=== PATIENT | male | born 1975 | race Hispanic/Latino ===

== ENCOUNTER 2017-10-15 19:31 | Inpatient (IN) | payer MEDICAID ==
--- NOTE | 2017-10-15 20:12 | ED PDOC ---
Arrival/HPI - General Chief Complaint: Chest Pain Time Seen by Provider: 10/15/17 19:39 Historian: Patient - History of Present Illness Narrative History of Present Illness (Text): you were treated in the ED today for chest pain and back pain generalized and admits to using heroin/cocaine a few hours prior to ED visit but otherwise without any nausea/vomiting/headache/dizziness/difficulty breathing/abdomen pain /numbness/tingling/loss of limb or bowel or bladder function/pain with urination /trauma/fall/travel/prior blood clots/prior cancer history/thoughts to harm yourself or others or hallucinations. 10/15/17 20:09 10/15/17 22:26 Time/Duration: Other (1 day) Symptom Onset: Gradual Symptom Course: Unchanged, Intermittent Quality: Aching Severity Level: 4 Activities at Onset: Rest Context: Sitting Past Medical History - Provider Review Nursing Documentation Reviewed: Yes - Travel History Have you recently traveled outside [place] w/in the past 3 mons?: No - Cardiac Hx Cardiac Disorders: Yes Other/Comment: endocardities - Pulmonary Hx Respiratory Disorders: No - Neurological Hx Neurological Disorder: No - HEENT Hx HEENT Disorder: No - Renal Hx Renal Disorder: No - Endocrine/Metabolic Hx Endocrine Disorders: No - Hematological/Oncological Hx Blood Disorders: No - Integumentary Hx Dermatological Disorder: No - Musculoskeletal/Rheumatological Hx Musculoskeletal Disorders: No - Gastrointestinal Hx Gastrointestinal Disorders: No - Genitourinary/Gynecological Hx Genitourinary Disorders: No - Psychiatric Hx Psychophysiologic Disorder: No Hx Substance Use: Yes (heroin and cocain) - Anesthesia Hx Anesthesia: Yes Family/Social History - Physician Review Nursing Documentation Reviewed: Yes Family/Social History: No Known Family HX Smoking Status: Never Smoked Hx Alcohol Use: No Hx Substance Use: Yes (heroin and cocain) Allergies/Home Meds Allergies/Adverse Reactions: Allergies No Known Allergies Allergy (Verified 10/15/17 19:36) Home Medications: Home Meds Medication Instructions Recorded Confirmed No Known Home Med 10/15/17 10/15/17 Review of Systems - Review of Systems Constitutional: Normal Eyes: Normal ENT: Normal Respiratory: Normal Cardiovascular: Chest Pain Gastrointestinal: Normal Genitourinary Male: Normal Musculoskeletal: Back Pain Skin: Normal Neurological: Normal Endocrine: Normal Hemo/Lymphatic: Normal Psychiatric: Normal Physical Exam Vital Signs Reviewed: Yes Vital Signs Temp Pulse Resp BP Pulse Ox 10/15/17 21:06 113/75 10/15/17 21:05 133/72 10/15/17 19:38 98.0 F 87 22 111/72 100 Temperature: Afebrile Blood Pressure: Normal Pulse: Regular Respiratory Rate: Normal Appearance: Positive for: Well-Appearing, Non-Toxic, Comfortable Pain Distress: None Mental Status: Positive for: Alert and Oriented X 3 - Systems Exam Head: Present: Atraumatic, Normocephalic Pupils: Present: PERRL Extroacular Muscles: Present: EOMI Conjunctiva: Present: Normal Ears: Present: Normal Mouth: Present: Moist Mucous Membranes Pharnyx: Present: Normal Nose (External): Present: Atraumatic Nose (Internal): Present: Normal Inspection Neck: Present: Normal Range of Motion Respiratory/Chest: Present: Clear to Auscultation, Good Air Exchange Cardiovascular: Present: Regular Rate and Rhythm Abdomen: No: Tenderness, Distention, Normal Bowel Sounds, Peritoneal Signs, Rebound, Guarding, McBurney's Point Tender, Rovsing's Sign Present, Hernias, Feeding Tubes, Ostomy Tubes, Mass/Organomegaly, Scars, Other Back: Present: Normal Inspection, Other (no c-t spinal or paraspinal tenderness and mild l paraspinal discomfort wo specific spinal tenderness. no redness.) Upper Extremity: Present: Normal Inspection Lower Extremity: Present: Normal Inspection Neurological: Present: GCS=15, CN II-XII Intact, Speech Normal, Motor Func Grossly Intact Skin: Present: Warm, Normal Color Psychiatric: Present: Alert, Oriented x 3, Normal Insight, Normal Concentration Medical Decision Making ED Course and Treatment: you were treated in the ED today for chest pain and back pain generalized and admits to using heroin/cocaine a few hours prior to ED visit but otherwise without any nausea/vomiting/headache/dizziness/difficulty breathing/abdomen pain /numbness/tingling/loss of limb or bowel or bladder function/pain with urination /trauma/fall/travel/prior blood clots/prior cancer history/thoughts to harm yourself or others or hallucinations. You were otherwise breathing easily, pink moist lips, talking easily, good strength/sensation, alert/oriented, walking easily, clear lungs, no abdomen tenderness, no fever temp 98, stable heart rate 87, stable breathing rate 22, excellent oxygen level 100% room air, stable blood pressure 111/72, you have blood tests moderate infection count 16.8 , stable blood level hemoglobin 13.7/platelets 371, stable chemistry, Liver bilirubin 1.4 without yellowing of eyes/skin, heart blood test negative less 0.01, urine test no acute sign of infection, urine drug test pending, radiology CTa chest and lumbar pending, ECG normal sinus rhythm, aspirin, percocet, intravenous fluids, observation done in the ED with improvement, counselled to stop using drugs. 10/15/17 20:12 10/15/17 21:23 10/15/17 21:24 10/15/17 22:28 10/15/17 23:[address] Nielsen to followup, urine tox, CT chest and CT lumbar imaging and disposition. - Lab Interpretations Lab Results: 10/15/17 20:33 10/15/17 20:33 Lab Results 10/15/17 22:22: Urine Color Dark yellow, Urine Appearance Clear, Urine pH 5.5, Ur Specific [place] >= 1.030, Urine Protein 30 H, Urine Glucose (UA) Negative, Urine Ketones Negative, Urine Blood Negative, Urine Nitrate Negative, Urine Bilirubin Negative, Urine Urobilinogen 0.2, Ur Leukocyte Esterase Negative, Urine RBC Negative, Urine WBC 0 - 2, Ur Epithelial Cells 0 - 2, Amorphous Sediment Few, Urine Bacteria Many, Urine Other Fiber 10/15/17 20:33: PT 13.4 H, INR 1.17 H, APTT 28.8 10/15/17 20:33: Sodium 138, Potassium 4.0, Chloride 102, Carbon Dioxide 25, Anion Gap 15, BUN 15, Creatinine 0.8, Est GFR ( Amer) > 60, Est GFR (Non- Af Amer) > 60, Random Glucose 95, Calcium 10.2, Magnesium 1.9, Total Bilirubin 1.4 H, AST 35, ALT 56, Alkaline Phosphatase 70, Lactate Dehydrogenase 408, Total Creatine Kinase 49, Troponin I < 0.01, Total Protein 9.0 H, Albumin 4.3, Globulin 4.7, Albumin/Globulin Ratio 0.9 L, Lipase 32 10/15/17 20:33: WBC 16.8 H, RBC 4.79, Hgb 13.7 L, Hct 41.6 L, MCV 86.8, MCH 28.6 , MCHC 32.9, RDW 15.3 H, Plt Count 371, MPV 8.9, Gran % 79.1 H, Lymph % (Auto) 13.7 L, [place] % (Auto) 6.9 H, Eos % (Auto) 0.1 L, Baso % (Auto) 0.2, Gran # 13.32 H, Lymph # (Auto) 2.3, [place] # (Auto) 1.2 H, Eos # (Auto) 0.0, Baso # (Auto ) 0.03 - RAD Interpretation Radiology Orders: 10/15/17 20:07 LUMBAR SPINE W/O CONTRAST [CT] Stat 10/15/17 21:25 ANGIO CHEST PE PROTOCOL [CT] Stat - EKG Interpretation Interpreted by ED Physician: Yes (NSR, flipped t waves avr) Type: 12 lead EKG - Medication Orders Current Medication Orders: Discontinued Medications Aspirin (Aspirin) 325 mg PO STAT STA Stop: 10/15/17 20:06 Last Admin: 10/15/17 20:21 Dose: 325 mg Sodium Chloride (Sodium Chloride 0.9%) 1,000 mls @ 999 mls/hr IV .Q1H1M STA Stop: 10/15/17 22:35 Last Admin: 10/15/17 22:23 Dose: 999 mls/hr eMAR Start Stop Document 10/15/17 22:23 HI (Rec: 10/15/17 22:23 SC [id number]) Intravenous Solution Start Date 10/15/17 Start Time 22:23 Oxycodone/Acetaminophen (Percocet 5/325 Mg Tab) 1 tab PO STAT STA Stop: 10/15/17 22:28 Last Admin: 10/15/17 22:31 Dose: 1 tab MAR Pain Assessment Document 10/15/17 22:31 HI (Rec: 10/15/17 22:31 SC [id number]) Pain Reassessment Is this a pain reassessment? No Presence of Pain Presence of Pain Yes Disposition/Present on Arrival - Present on Arrival Any Indicators Present on Arrival: Yes History of DVT/PE: No History of Uncontrolled Diabetes: No Urinary Catheter: No History of Decub. Ulcer: No History Surgical Site Infection Following: None - Disposition Have Diagnosis and Disposition been Completed?: Yes Diagnosis: Chest pain, Back pain Discharge Instructions (ExitCare): Chest Pain (ED) Referrals: PCP,NO [Primary Care Provider] - Follow up with primary Forms: [employer] (Greek)
[2017-10-15 20:57] LABS: ALB/GLOB RATIO 0.9 (1.1-1.8); ALBUMIN 4.3 g/dL (3.0-4.8); ALT/SGPT 56 U/L (7-56); AST/SGOT 35 U/L (17-59); BLOOD UREA NITROGEN 15 mg/dL (7-21); CALCIUM 10.2 mg/dL (8.4-10.5); GFR AFRICAN-AMERICAN > 60; GFR NON-AFRICAN AMERICAN > 60; LIPASE 32 U/L (23-300); MAGNESIUM 1.9 mg/dL (1.7-2.2)
[2017-10-15 21:00] LABS: BASO # 0.03 K/mm3 (0.0-2.0); BASO % 0.2 % (0.0-3.0); EOS % 0.1 % (1.5-5.0); GRAN # 13.32 (1.4-6.5); GRAN % 79.1 % (50.0-68.0); HEMOGLOBIN 13.7 g/dL (14.0-18.0); LYMPH # 2.3 (1.2-3.4); LYMPH % 13.7 % (22.0-35.0); MEAN CELL VOLUME 86.8 fl (80.0-105.0); MEAN CORPUSCULAR HEMOGLOBIN 28.6 pg (25.0-35.0); MEAN CORPUSCULAR HGB CONC 32.9 g/dl (31.0-37.0); MEAN PLATELET VOLUME 8.9 fl (7.0-11.0); MONO # 1.2 (0.1-0.6); MONO % 6.9 % (1.0-6.0); RBC 4.79 10^6/uL (3.5-6.1); RED CELL DISTRIBUTION WIDTH 15.3 % (11.5-14.5); WHITE BLOOD COUNT 16.8 10^3/ul (4.5-11.0)
[2017-10-15 21:06] LABS: TROPONIN I < 0.01 ng/mL
[2017-10-15 21:22] LABS: INR 1.17 (0.93-1.08); PARTIAL THROMBOPLASTIN TIME 28.8 Seconds (25.1-36.5); PROTHROMBIN TIME 13.4 SECONDS (9.4-12.5)
[2017-10-15] MEDS ORDERED: Sodium Chloride 0.9% 1,000 ML IV STA (21:35)
[2017-10-15] MEDS ORDERED: Iohexol 350 MG/100 ML VIAL ONE (21:50)
[2017-10-15] MEDS ORDERED: Oxycodone/Acetaminophen 5/325 mg Tab PO STA (22:27)
[2017-10-15] MEDS ORDERED: Oxycodone/Acetaminophen 5/325 mg Tab ONE (22:30)
[2017-10-15 22:43] LABS: PH,URINE 5.5 (4.7-8.0); URINE BILIRUBIN NEGATIVE (NEGATIVE); URINE BLOOD NEGATIVE (NEGATIVE); URINE COLOR DARK YELLOW (YELLOW); URINE GLUCOSE (UA) NEGATIVE (NEGATIVE); URINE LEUKOCYTE ESTERASE NEGATIVE Leu/uL (NEGATIVE); URINE NITRATE NEGATIVE (NEGATIVE); URINE PROTEIN 30 mg/dL (<30 mg/dL); URINE UROBILINOGEN 0.2 E.U./dL (<1 E.U./dL)
[2017-10-15 22:44] LABS: URINE APPEARANCE CLEAR (CLEAR)
[2017-10-15 22:46] LABS: URINE AMORPHOUS SEDIMENT FEW; URINE BACTERIA MANY (NEG); URINE EPITHELIAL CELLS 0 - 2 /hpf (0-5); URINE RBC NEGATIVE /hpf (0-2); URINE WBC 0 - 2 /hpf (0-6)
[2017-10-15 23:03] LABS: BARBITURATES, UR NEGATIVE (NEGATIVE); BENZODIAZEPINES, UR NEGATIVE (NEGATIVE); PHENCYCLIDINE, UR NEGATIVE (NEGATIVE)
[2017-10-15 23:05] LABS: OPIATES, UR POSITIVE (NEGATIVE)
--- NOTE | 2017-10-15 23:44 | CT ---
EXAM: CT Lumbar Spine Without Intravenous Contrast EXAM DATE/TIME: 10/15/2017 8:07 PM CLINICAL HISTORY: 42 years old, male; Pain; Low back pain; Additional info: 42yom, back pain TECHNIQUE: Axial computed tomography images of the lumbar spine without intravenous contrast. All CT scans at this facility use one or more dose reduction techniques, viz.: automated exposure control; ma/kV adjustment per patient size (including targeted exams where dose is matched to indication; i.e. head); or iterative reconstruction technique. Coronal and sagittal reformatted images were created and reviewed. COMPARISON: No relevant prior studies available. FINDINGS: VERTEBRAE: Unilateral pars defect at L5, on the left. No acute fractures are seen. No evidence of significant vertebral height loss/compression deformity. No evidence of significant vertebral subluxation. No evidence of destructive or otherwise aggressive-appearing vertebral lesions. DISCS/SPINAL CANAL/NEURAL FORAMINA: Mild multilevel degenerative disc disease of the lower lumbar spine. This is greatest at the L3-4 level, where there are large anterior osteophytes. Note that the spinal soft tissues, such as the intervertebral disks and contents of the spinal canal, are suboptimally evaluated by CT compared with MRI. No evidence of bony spinal canal stenosis. SOFT TISSUES: No acute abnormality of the soft tissues identified. IMPRESSION: - No acute CT abnormality of the lumbar spine identified. - Degenerative disc disease, greatest at L3-4. - Unilateral pars defect at L5 on the left. - See above for remaining findings.
--- NOTE | 2017-10-15 23:59 | CT ---
EXAM: CT Angiography Chest With Intravenous Contrast EXAM DATE/TIME: 10/15/2017 9:25 PM CLINICAL HISTORY: 42 years old, male; Pain; Chest pain; Type not specified; Additional info: 42yom, chest pain. Please eval pe. TECHNIQUE: Axial computed tomographic angiography images of the chest with intravenous contrast using pulmonary embolism protocol. All CT scans at this facility use one or more dose reduction techniques, viz.: automated exposure control; ma/kV adjustment per patient size (including targeted exams where dose is matched to indication; i.e. head); or iterative reconstruction technique. MIP reconstructed images were created and reviewed. Coronal and sagittal reformatted images were created and reviewed. CONTRAST: 100 mL of OMNI 350 administered intravenously. COMPARISON: No relevant prior studies available. FINDINGS: PULMONARY ARTERIES: Contrast opacification of the pulmonary arteries is adequate, and there are no filling defects seen to suggest pulmonary embolism. AORTA: No evidence of aortic dissection. LUNGS: Incidental 7 x 5 mm nodular density in the left lung apex, image 41/series 2. There is nearby linear scarring and bronchiectasis, and this could be postinflammatory in etiology. In low-risk patients (minimal or absent history of smoking or other known risk factors), recommend chest CT follow-up at 6-12 months. If stable consider an additional follow-up CT at 18-24 months. For high-risk patients (history of smoking or other known risk factors), recommend chest CT follow-up in 6-12 months and then at 18-24 months. No evidence of significant focal consolidation/infiltrate in the lungs. No evidence of diffuse pulmonary vascular congestion. PLEURAL SPACE: No pneumothorax or pleural effusions seen. HEART: No evidence of significant pericardial effusion. BONES/JOINTS: No acute bony abnormality identified. SOFT TISSUES: No acute abnormality of the visualized soft tissues seen. LYMPH NODES: No evidence of diffuse lymphadenopathy. IMPRESSION: - No evidence of pulmonary embolism or other significant acute abnormality in the chest. - Incidental 6 mm pulmonary nodule. - See above for remaining findings.
--- NOTE | 2017-10-16 00:05 | ED PDOC ---
Physical Exam Vital Signs Temp Pulse Resp BP Pulse Ox 10/15/17 21:06 113/75 10/15/17 21:05 133/72 10/15/17 19:38 98.0 F 87 22 111/72 100 Medical Decision Making ED Course and Treatment: 10/16/17 Case was signed out to me by Dr. Dominguez. Patient is a 42 year old male, who presents to the emergency department complaining of chest pain and back pain. Additionally patient admits to using heroin/cocaine prior to arrival. Currently pending CT chest and CT of lumbar spine. 10/16/17 00:[address]: FINDINGS: PULMONARY ARTERIES: Contrast opacification of the pulmonary arteries is adequate , and thereare no filling defects seen to suggest pulmonary embolism. AORTA: No evidence of aortic dissection. LUNGS: Incidental 7 x 5 mm nodular density in the left lung apex, image 41/ series 2. There is nearbylinear scarring and bronchiectasis, and this could be postinflammatory in etiology. In low-risk patients(minimal or absent history of smoking or other known risk factors), recommend chest CT follow-up at 6-12 months. If stable consider an additional follow-up CT at 18-24 months. For high- risk patients (history of smoking or other known risk factors), recommend chest CT follow-up in 6-12 months and then at 18-24 months. No evidence of significant focal consolidation/infiltrate in the lungs. No evidence of diffuse pulmonary vascular congestion. PLEURAL SPACE: No pneumothorax or pleural effusions seen. HEART: No evidence of significant pericardial effusion. BONES/JOINTS: No acute bony abnormality identified. SOFT TISSUES: No acute abnormality of the visualized soft tissues seen. LYMPH NODES: No evidence of diffuse lymphadenopathy. IMPRESSION: - No evidence of pulmonary embolism or other significant acute abnormality in the chest. - Incidental 6 mm pulmonary nodule. - See above for remaining findings. 10/16/2017 CT Lumbar Spine: FINDINGS: VERTEBRAE: Unilateral pars defect at L5, on the left. No acute fractures are seen. No evidence of significant vertebral height loss/compression deformity. No evidence of significant vertebral subluxation. No evidence of destructive or otherwise aggressive-appearing vertebral lesions. DISCS/SPINAL CANAL/NEURAL FORAMINA: Mild multilevel degenerative disc disease of the lower lumbar spine. This is greatest at the L3-4 level, where there are large anterior osteophytes. Note that the spinal soft tissues, such as the intervertebral disks and contents of the spinal canal, are suboptimally evaluated by CT compared with MRI. No evidence of bony spinal canal stenosis. SOFT TISSUES: No acute abnormality of the soft tissues identified. IMPRESSION: - No acute CT abnormality of the lumbar spine identified. - Degenerative disc disease, greatest at L3-4. - Unilateral pars defect at L5 on the left. - See above for remaining findings. case d/w dr caldera will tele obs for chest pain and cocaine 10/18/17 17:19 - Lab Interpretations Lab Results: 10/15/17 20:33 10/15/17 20:33 Lab Results 10/15/17 22:22: Urine Opiates Screen Positive H, Urine Methadone Screen Negative , Ur Barbiturates Screen Negative, Ur Phencyclidine Scrn Negative, Ur Amphetamines Screen Negative, U Benzodiazepines Scrn Negative, U Oth Cocaine Metabols Positive H, U Cannabinoids Screen Negative 10/15/17 22:22: Urine Color Dark yellow, Urine Appearance Clear, Urine pH 5.5, Ur Specific [place] >= 1.030, Urine Protein 30 H, Urine Glucose (UA) Negative, Urine Ketones Negative, Urine Blood Negative, Urine Nitrate Negative, Urine Bilirubin Negative, Urine Urobilinogen 0.2, Ur Leukocyte Esterase Negative, Urine RBC Negative, Urine WBC 0 - 2, Ur Epithelial Cells 0 - 2, Amorphous Sediment Few, Urine Bacteria Many, Urine Other Fiber 10/15/17 20:33: PT 13.4 H, INR 1.17 H, APTT 28.8 10/15/17 20:33: Sodium 138, Potassium 4.0, Chloride 102, Carbon Dioxide 25, Anion Gap 15, BUN 15, Creatinine 0.8, Est GFR ( Amer) > 60, Est GFR (Non- Af Amer) > 60, Random Glucose 95, Calcium 10.2, Magnesium 1.9, Total Bilirubin 1.4 H, AST 35, ALT 56, Alkaline Phosphatase 70, Lactate Dehydrogenase 408, Total Creatine Kinase 49, Troponin I < 0.01, Total Protein 9.0 H, Albumin 4.3, Globulin 4.7, Albumin/Globulin Ratio 0.9 L, Lipase 32 10/15/17 20:33: WBC 16.8 H, RBC 4.79, Hgb 13.7 L, Hct 41.6 L, MCV 86.8, MCH 28.6 , MCHC 32.9, RDW 15.3 H, Plt Count 371, MPV 8.9, Gran % 79.1 H, Lymph % (Auto) 13.7 L, [place] % (Auto) 6.9 H, Eos % (Auto) 0.1 L, Baso % (Auto) 0.2, Gran # 13.32 H, Lymph # (Auto) 2.3, [place] # (Auto) 1.2 H, Eos # (Auto) 0.0, Baso # (Auto ) 0.03 - RAD Interpretation Radiology Orders: 10/15/17 20:07 LUMBAR SPINE W/O CONTRAST [CT] Stat 10/15/17 21:25 ANGIO CHEST PE PROTOCOL [CT] Stat Laster Hand: Radiologist - Medication Orders Current Medication Orders: Discontinued Medications Aspirin (Aspirin) 325 mg PO STAT STA Stop: 10/15/17 20:06 Last Admin: 10/15/17 20:21 Dose: 325 mg Sodium Chloride (Sodium Chloride 0.9%) 1,000 mls @ 999 mls/hr IV .Q1H1M STA Stop: 10/15/17 22:35 Last Admin: 10/15/17 22:23 Dose: 999 mls/hr eMAR Start Stop Document 10/15/17 22:23 HI (Rec: 10/15/17 22:23 ND [id number]) Intravenous Solution Start Date 10/15/17 Start Time 22:23 Oxycodone/Acetaminophen (Percocet 5/325 Mg Tab) 1 tab PO STAT STA Stop: 10/15/17 22:28 Last Admin: 10/15/17 22:31 Dose: 1 tab MAR Pain Assessment Document 10/15/17 22:31 HI (Rec: 10/15/17 22:31 ND [id number]) Pain Reassessment Is this a pain reassessment? No Presence of Pain Presence of Pain Yes Disposition/Present on Arrival - Present on Arrival Any Indicators Present on Arrival: Yes History of DVT/PE: No History of Uncontrolled Diabetes: No Urinary Catheter: No History of Decub. Ulcer: No History Surgical Site Infection Following: None - Disposition Have Diagnosis and Disposition been Completed?: Yes Diagnosis: Chest pain, Back pain Disposition: HOSPITALIZED Disposition Time: 00:00 Patient Problems: Current Active Problems Problem Status Onset Back pain Acute Chest pain Acute Condition: FAIR
--- NOTE | 2017-10-16 01:22 | CP.PCM.HP ---
History of Present Illness - History of Present Illness History of Present Illness: CC: Lower back pain and chest pain Patient is a 42 y/o Male with PMHx of homeless, endocarditis, chronic alcohol abuse, IVDA- cocaine and heroine presenting with substernal chest pain radiating to the back and lower back pain for 2 days. Patient states last night while walking on the street he felt weak in the knees and fell to the ground. Patient denies LOC, denies bowel and bladder incontinent. Admits to hitting his head. 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 Since then he has been having lower back pain. Patient also states the chest pain started 2 days ago, radiating to the back, intermittent, non exertional, states he feels like the endocarditis is coming back. Patient states he was [place] [facility] [place] was diagnosed with endocarditis, was treated with IV antibiotics for a month and half and was discharged with po antibiotics ( doxy and amoxicillin) which he took for 3 months. Patient states he has been using IV cocaine and heroine for many years, was clean for 15 years then relapsed 2 years ago when his left him. Last time he used IV cocaine and heroine was 6-8 hours ago. Patient states he is a heavy drinker, last alcohol was 2 days ago, was not able to quantify the amount. Admits to chills, and subjective fever, admits to nausea, vomiting x2. Denies diarrhea, admits to constipation. Denies headache. PMHx: As stated above PSHx: denies surgical history FMHx: father and mother from alcohol related issues. Social: heavy alcohol abuse, IVDA- cocaine and alcohol, denies tobacco abuse. Home meds: none. Present on Admission - Present on Admission Any Indicators Present on Admission: No History of DVT/PE: No History of Uncontrolled Diabetes: No Urinary Catheter: No Decubitus Ulcer Present: No Review of Systems - Review of Systems All systems: reviewed and no additional remarkable complaints except Review of Systems: 12 point ROS reviewed, all negative except as per HPI. Past Patient History - Tetanus Immunizations Tetanus Immunization: Unknown - Past Social History Smoking Status: Never Smoked Alcohol: > 2 Drinks/Day Drugs: Cocaine, Opiates Home Situation {Lives}: Homeless - CARDIAC Hx Cardiac Disorders: Yes Other/Comment: endocardities - PULMONARY Hx Respiratory Disorders: No - NEUROLOGICAL Hx Neurological Disorder: No - HEENT Hx HEENT Problems: No - RENAL Hx Chronic Kidney Disease: No - ENDOCRINE/METABOLIC Hx Endocrine Disorders: No - HEMATOLOGICAL/ONCOLOGICAL Hx Blood Disorders: No - INTEGUMENTARY Hx Dermatological Problems: No - MUSCULOSKELETAL/RHEUMATOLOGICAL Hx Musculoskeletal Disorders: No - GASTROINTESTINAL Hx Gastrointestinal Disorders: No - GENITOURINARY/GYNECOLOGICAL Hx Genitourinary Disorders: No - PSYCHIATRIC Hx Psychophysiologic Disorder: No Hx Substance Use: Yes (heroin and cocain) - SURGICAL HISTORY Hx Surgeries: No - ANESTHESIA Hx Anesthesia: Yes Meds Allergies/Adverse Reactions: Allergies Allergy/AdvReac Type Severity Reaction Status Date / Time No Known Allergies Allergy Verified 10/15/17 19:36 Physical Exam - Constitutional Appears: No Acute Distress, Unkempt, Older Than Stated Age - Head Exam Head Exam: ATRAUMATIC, NORMAL INSPECTION, NORMOCEPHALIC - Eye Exam Eye Exam: EOMI, Normal appearance, PERRL. absent: Scleral icterus Pupil Exam: NORMAL ACCOMODATION - ENT Exam ENT Exam: Mucous Membranes Moist - Neck Exam Neck exam: Positive for: Normal Inspection. Negative for: Tenderness - Respiratory Exam Respiratory Exam: Clear to Auscultation Bilateral, NORMAL BREATHING PATTERN. absent: Rales, Rhonchi, Wheezes, Respiratory Distress, Stridor - Cardiovascular Exam Cardiovascular Exam: REGULAR RHYTHM, RRR, +S1, +S2. absent: Bradycardia, Tachycardia, Gallop, JVD, Rubs, Systolic Murmur - GI/Abdominal Exam GI & Abdominal Exam: Normal Bowel Sounds, Soft. absent: Distended, Firm, Guarding, Hernia, Rebound, Rigid, Tenderness - Extremities Exam Extremities exam: Positive for: normal inspection. Negative for: pedal edema, tenderness - Back Exam Back exam: NORMAL INSPECTION - Neurological Exam Neurological exam: Alert, Oriented x3 - Psychiatric Exam Psychiatric exam: Flat Affect - Skin Skin Exam: Abrasion, Dry, Warm Results - Vital Signs Recent Vital Signs: Last Vital Signs Temp 98.0 F 10/15/17 19:38 Pulse 87 10/15/17 19:38 Resp 22 10/15/17 19:38 BP 113/75 10/15/17 21:06 Pulse Ox 100 10/15/17 19:38 - Labs Result Diagrams: 10/15/17 20:33 10/15/17 20:33 Labs: Laboratory Results - last 24 hr 10/15/17 10/15/17 10/15/17 20:33 20:33 20:33 WBC 16.8 H RBC 4.79 Hgb 13.7 L Hct 41.6 L MCV 86.8 MCH 28.6 MCHC 32.9 RDW 15.3 H Plt Count 371 MPV 8.9 Gran % 79.1 H Lymph % (Auto) 13.7 L [place] % (Auto) 6.9 H Eos % (Auto) 0.1 L Baso % (Auto) 0.2 Gran # 13.32 H Lymph # (Auto) 2.3 [place] # (Auto) 1.2 H Eos # (Auto) 0.0 Baso # (Auto) 0.03 PT 13.4 H INR 1.17 H APTT 28.8 Sodium 138 Potassium 4.0 Chloride 102 Carbon Dioxide 25 Anion Gap 15 BUN 15 Creatinine 0.8 Est GFR ( Amer) > 60 Est GFR (Non-Af Amer) > 60 Random Glucose 95 Calcium 10.2 Magnesium 1.9 Total Bilirubin 1.4 H AST 35 ALT 56 Alkaline Phosphatase 70 Lactate Dehydrogenase 408 Total Creatine Kinase 49 Troponin I < 0.01 Total Protein 9.0 H Albumin 4.3 Globulin 4.7 Albumin/Globulin Ratio 0.9 L Lipase 32 Urine Color Urine Appearance Urine pH Ur Specific [place] Urine Protein Urine Glucose (UA) Urine Ketones Urine Blood Urine Nitrate Urine Bilirubin Urine Urobilinogen Ur Leukocyte Esterase Urine RBC Urine WBC Ur Epithelial Cells Amorphous Sediment Urine Bacteria Urine Other Urine Opiates Screen Urine Methadone Screen Ur Barbiturates Screen Ur Phencyclidine Scrn Ur Amphetamines Screen U Benzodiazepines Scrn U Oth Cocaine Metabols U Cannabinoids Screen 10/15/17 10/15/17 22:22 22:22 WBC RBC Hgb Hct MCV MCH MCHC RDW Plt Count MPV Gran % Lymph % (Auto) [place] % (Auto) Eos % (Auto) Baso % (Auto) Gran # Lymph # (Auto) [place] # (Auto) Eos # (Auto) Baso # (Auto) PT INR APTT Sodium Potassium Chloride Carbon Dioxide Anion Gap BUN Creatinine Est GFR ( Amer) Est GFR (Non-Af Amer) Random Glucose Calcium Magnesium Total Bilirubin AST ALT Alkaline Phosphatase Lactate Dehydrogenase Total Creatine Kinase Troponin I Total Protein Albumin Globulin Albumin/Globulin Ratio Lipase Urine Color Dark yellow Urine Appearance Clear Urine pH 5.5 Ur Specific [place] >= 1.030 Urine Protein 30 H Urine Glucose (UA) Negative Urine Ketones Negative Urine Blood Negative Urine Nitrate Negative Urine Bilirubin Negative Urine Urobilinogen 0.2 Ur Leukocyte Esterase Negative Urine RBC Negative Urine WBC 0 - 2 Ur Epithelial Cells 0 - 2 Amorphous Sediment Few Urine Bacteria Many Urine Other Fiber Urine Opiates Screen Positive H Urine Methadone Screen Negative Ur Barbiturates Screen Negative Ur Phencyclidine Scrn Negative Ur Amphetamines Screen Negative U Benzodiazepines Scrn Negative U Oth Cocaine Metabols Positive H U Cannabinoids Screen Negative - EKG Data EKG Interpreted by: Myself EKG shows normal: Sinus rhythm, [place] (normal), Intervals (normal), QRS complexes (normal), ST-T waves (No changes) Rate: Normal Assessment & Plan - Assessment and Plan (Free Text) Assessment: Patient is a 42 y/o Male with PMHx of homeless, endocarditis, chronic alcohol abuse, IVDA- cocaine and heroine presenting with substernal chest pain radiating to the back and lower back pain for 2 days. Patient tested positive for cocaine and heroine in the ED. CT chest revealed no PE, had [address] of L spine with DJD of L3-L4. Plan: 1) Chest pain r/o ACS due to cocaine versus endocarditis. - Trop negative x1 - Will trend troponin - will obtain cardiac echo - cardiology consult - s/p high dose asa - c/w 81 mg asa - lipid panel in the morning. - Will send cultures 2) DJD of the L3-L4- - Morphine prn for pain and colace to prevent constipation - flexeril 5 mg tid 3) Multi drug abuse, including alcohol - will start ativan 2 q4 prn - ciwa protocol - thiamine, folic acid, and multi vitamin - IVF - will add serum etoh level 4) Leukocytosis r/o sirs/sepsis - no tachycardia, no fever - will obtain urine and blood culture. - Hold off antibiotics for now 5) Elevated liver related markers - elevated t bili and mildly elevated INR - Repeat lab in the morning and consider further work up if trending upward. 6) 6 mm Pulmonary nodule - Repeat CT in 6-12 months. 7) DVT and GI prophylaxis: Pepcid for gi prophylaxis. Compressive device for dvt prophylaxis. Patient seen, examined and case discussed with Dr Quiñones. - Date & Time Date: 10/16/17 Time: 01:15
[2017-10-16] MEDS: Morphine 5 MG/ML SYRINGE IVP PRN ×4 (01:59→22:37)
[2017-10-16] MEDS ORDERED: Multivitamin (MVI) 10 ML, Thiamine 100 MG, Folic Acid 1 MG in Dextrose 5% In Water 1,00... IV ONE (02:02)
[2017-10-16] MEDS: Sodium Chloride 0.9% 1,000 ML IV SCH ×2 (03:21→12:55)
[2017-10-16 05:08] VITALS: BMI 75910.9
[2017-10-16 06:44] LABS: BASO # 0.03 K/mm3 (0.0-2.0); BASO % 0.2 % (0.0-3.0); EOS % 0.3 % (1.5-5.0); GRAN # 9.72 (1.4-6.5); HEMOGLOBIN 11.3 g/dL (14.0-18.0); LYMPH % 19.8 % (22.0-35.0); MEAN CELL VOLUME 86.5 fl (80.0-105.0); MEAN CORPUSCULAR HEMOGLOBIN 27.3 pg (25.0-35.0); MEAN CORPUSCULAR HGB CONC 31.6 g/dl (31.0-37.0); MEAN PLATELET VOLUME 9.1 fl (7.0-11.0); MONO # 2.2 (0.1-0.6); MONO % 14.7 % (1.0-6.0); RBC 4.14 10^6/uL (3.5-6.1); RED CELL DISTRIBUTION WIDTH 15.5 % (11.5-14.5); WHITE BLOOD COUNT 14.9 10^3/ul (4.5-11.0)
[2017-10-16 07:17] LABS: ALB/GLOB RATIO 0.9 (1.1-1.8); ALBUMIN 3.5 g/dL (3.0-4.8); ALT/SGPT 43 U/L (7-56); AST/SGOT 28 U/L (17-59); BLOOD UREA NITROGEN 18 mg/dL (7-21); CALCIUM 9.2 mg/dL (8.4-10.5); GFR AFRICAN-AMERICAN > 60; GFR NON-AFRICAN AMERICAN > 60; HDL CHOLESTEROL 38 mg/dL (29-60); TROPONIN I < 0.01 ng/mL
[2017-10-16 07:24] LABS: LDL CHOLESTEROL 84 mg/dL (0-129)
[2017-10-16] MEDS: Multivitamin Vitamin B Complex (Nephro-Vite) Tab PO SCH (08:13)
--- NOTE | 2017-10-16 13:06 | CARD ---
APPROVED REPORT EKG Measurement Heart [id number] <Conclusion> Normal sinus rhythm Normal ECG
[2017-10-17] MEDS: Sodium Chloride 0.9% 1,000 ML IV SCH ×2 (00:06→22:39)
--- NOTE | 2017-10-17 00:23 | CON ---
CARDIOLOGY CONSULTATION HISTORY: The patient is a 42-year-old male, who presents with diffuse body aches including chest pain as well as back pain. The patient's chest pain is atypical, increased with inspiration. The patient is an active smoker. He is also an active cocaine and heroin user. No previous cardiac history. REVIEW OF SYSTEMS: A 14-point review of systems is reviewed in detail. The patient has diffuse body aches in the back, chest, abdomen, and shoulders. PHYSICAL EXAMINATION: VITAL SIGNS: Blood pressure is 127/73, the heart rate in the 80s. NECK: Negative JVD. LUNGS: Without rales. HEART: S1, S2. EXTREMITIES: Without edema. EKG is unremarkable. LABORATORIES: Troponins are negative x2. Hemoglobin is 11.3. IMPRESSION: 1. Atypical chest pain. 2. No evidence for acute coronary syndrome. 3. Drug abuse with heroin and cocaine. 4. Anemia. Given these findings, there is no evidence for acute coronary syndrome. We will discontinue telemetry today. The patient is getting blood cultures for his elevated white count. No further cardiac workup is indicated at this time. Emiliano Murillo MD
[2017-10-17] MEDS: Morphine 5 MG/ML SYRINGE IVP PRN ×5 (04:42→22:32)
[2017-10-17 06:42] LABS: BASO # 0.03 K/mm3 (0.0-2.0); BASO % 0.2 % (0.0-3.0); EOS % 0.1 % (1.5-5.0); GRAN # 11.83 (1.4-6.5); GRAN % 74.3 % (50.0-68.0); HEMOGLOBIN 11.8 g/dL (14.0-18.0); LYMPH # 2.1 (1.2-3.4); LYMPH % 12.9 % (22.0-35.0); MEAN CELL VOLUME 85.5 fl (80.0-105.0); MEAN CORPUSCULAR HEMOGLOBIN 27.6 pg (25.0-35.0); MEAN CORPUSCULAR HGB CONC 32.3 g/dl (31.0-37.0); MEAN PLATELET VOLUME 8.7 fl (7.0-11.0); MONO % 12.5 % (1.0-6.0); RBC 4.27 10^6/uL (3.5-6.1); RED CELL DISTRIBUTION WIDTH 15.4 % (11.5-14.5); WHITE BLOOD COUNT 15.9 10^3/ul (4.5-11.0)
[2017-10-17 08:03] LABS: ALB/GLOB RATIO 0.9 (1.1-1.8); ALBUMIN 3.5 g/dL (3.0-4.8); ALT/SGPT 34 U/L (7-56); AST/SGOT 36 U/L (17-59); BLOOD UREA NITROGEN 10 mg/dL (7-21); CALCIUM 9.3 mg/dL (8.4-10.5); GFR AFRICAN-AMERICAN > 60; GFR NON-AFRICAN AMERICAN > 60
[2017-10-17] MEDS ORDERED: Gadodiamide 287 MG/ML VIAL (15ML) IV ONE (08:24)
[2017-10-17] MEDS: Multivitamin Vitamin B Complex (Nephro-Vite) Tab PO SCH (09:19)
--- NOTE | 2017-10-17 10:09 | MRI ---
PROCEDURE: MR LUMBAR SPINE WITH AND WITHOUT CONTRAST HISTORY: sciatic pain; r/o epidural abscess COMPARISON: None available. TECHNIQUE: Multiecho multiplanar sequences were performed through the lumbar spine with and without the use of intravenous contrast. 15 cc of Omniscan FINDINGS: Normal lumbar lordosis. Vertebral body heights are preserved. Marrow signal unremarkable. Conus medullaris unremarkable at the level of L1 Paraspinal soft tissues are unremarkable. No abnormal enhancement. T12-L1: No disc herniation, spinal canal stenosis or neural foraminal narrowing. L1-2: No disc herniation, spinal canal stenosis or neural foraminal narrowing. L2-3: No disc herniation, spinal canal stenosis or neural foraminal narrowing. L3-4: There is a moderate disc bulge. Mild bilateral foraminal stenosis L4-5: There is disc degeneration with a small central disc protrusion and radial tear. No stenosis L5-S1: There is disc degeneration with desiccation of the disc material and mild disc bulging. There is facet arthropathy right greater than left which produces right-sided L5 foraminal stenosis. OTHER FINDINGS: None. IMPRESSION: Mild degenerative changes in the lower lumbar spine. No evidence of discitis or epidural abscess
--- NOTE | 2017-10-17 11:46 | CP.PCM.PN ---
<Maureen He - Last Filed: 10/17/17 11:40> Subjective - Date & Time of Evaluation Date of Evaluation: 10/17/17 Time of Evaluation: 07:30 - Subjective Subjective: Maureen He DO PGY1 - IM Progress Note Patient seen and examined at bedside. No acute events overnight. Patient still complaining of severe back pain, limiting him from walking and moving. Patient clarified, weakness started first, then pain started, then he fell. Weakness started about 4 days ago, the following morning he woke up with pain. Today, he is also complaining of fevers, malaise. He denies chest pain, shortness of breath, abdominal pain, nausea, diarrhea, hallucinations Objective - Vital Signs/Intake and Output Vital Signs (last 24 hours): Temp Pulse Resp BP Pulse Ox 99.3 F 92 H 18 116/68 96 10/17/17 08:53 10/17/17 08:53 10/17/17 08:53 10/17/17 08:53 10/17/17 08:53 Intake and Output: 10/17/17 10/17/17 06:59 18:59 Intake Total 1220 Output Total 2200 Balance -980 - Medications Medications: Current Medications Acetaminophen (Tylenol 325mg Tab) 650 mg PO Q6H PRN PRN Reason: Fever >100.4 F Aspirin (Aspirin Chewable) 81 mg PO DAILY [facility] Last Admin: 10/17/17 09:18 Dose: 81 mg Cyclobenzaprine HCl (Flexeril) 5 mg PO TID [facility] Last Admin: 10/17/17 09:16 Dose: 5 mg Docusate Sodium (Colace) 100 mg PO BID [facility] Last Admin: 10/17/17 09:16 Dose: 100 mg Famotidine (Pepcid) 40 mg PO HS [facility] Last Admin: 10/16/17 22:37 Dose: 40 mg Folic Acid (Folic Acid) 1 mg PO DAILY [facility] Last Admin: 10/17/17 09:16 Dose: 1 mg Sodium Chloride (Sodium Chloride 0.9%) 1,000 mls @ 100 mls/hr IV .Q10H [facility] Last Admin: 10/17/17 00:06 Dose: 100 mls/hr Meropenem 500 mg/ Sodium (Chloride) 100 mls @ 100 mls/hr IVPB Q8 [facility] PRN Reason: Protocol Stop: 10/24/17 09:16 Vancomycin HCl (Vancomycin 1gm) 1 gm in 250 mls @ 167 mls/hr IVPB Q12H [facility] PRN Reason: Protocol Lorazepam (Ativan) 2 mg IVP Q4H PRN; Protocol PRN Reason: Symptoms of alcohol withdrawl Last Admin: 10/17/17 00:05 Dose: 2 mg Morphine Sulfate (Morphine) 2 mg IVP Q4H PRN PRN Reason: Pain, moderate (4-7) Last Admin: 10/17/17 09:12 Dose: 2 mg Ondansetron HCl (Zofran Inj) 4 mg IVP Q4H PRN PRN Reason: Nausea/Vomiting Thiamine HCl (Vitamin B1 Tab) 100 mg PO DAILY [facility] Last Admin: 10/17/17 09:16 Dose: 100 mg Vitamin B Complex/Vit C/Folic Acid (Nephro-Meghan) 1 tab PO 0800 [facility] Last Admin: 10/17/17 09:19 Dose: 1 tab - Labs Labs: 10/17/17 05:45 10/17/17 05:45 PT 13.4 SECONDS (9.4-12.5) H 10/15/17 20:33 INR 1.17 (0.93-1.08) H 10/15/17 20:33 APTT 28.8 Seconds (25.1-36.5) 10/15/17 20:33 - Constitutional Appears: Non-toxic, In Acute Distress (mild), Other (diaphoretic) - Head Exam Head Exam: ATRAUMATIC, NORMOCEPHALIC - Eye Exam Eye Exam: EOMI, Normal appearance, PERRL - ENT Exam ENT Exam: Mucous Membranes Moist - Neck Exam Neck Exam: Normal Inspection - Respiratory Exam Respiratory Exam: Clear to Ausculation Bilateral, NORMAL BREATHING PATTERN - Cardiovascular Exam Cardiovascular Exam: RRR, +S1, +S2. absent: Diastolic murmur, Murmur - GI/Abdominal Exam GI & Abdominal Exam: Soft, Normal Bowel Sounds. absent: Tenderness - Extremities Exam Extremities Exam: absent: Calf Tenderness, Pedal Edema - Back Exam Additional comments: Right SI joint tenderness Right SLR positive - Neurological Exam Neurological Exam: Alert, Awake, Oriented x3 Additional comments: Sensation grossly intact Tremulous No asterixis - Psychiatric Exam Psychiatric exam: Anxious, Normal Affect - Skin Skin Exam: Diaphoretic, Intact, Normal Color Assessment and Plan - Assessment and Plan (Free Text) Assessment: Patient is a 42 y/o Male with PMHx of homeless, endocarditis, chronic alcohol abuse, IVDA- cocaine and heroine presenting with substernal chest pain radiating to the back and lower back pain for 2 days. Patient tested positive for cocaine and heroine in the ED. CT chest revealed no PE, had [address] of L spine with DJD of L3-L4. Plan: 1) Chest pain r/o ACS due to cocaine versus endocarditis. - Serial troponins negative - Echo unremarkable; no vegetations - c/w 81 mg asa - lipid panel unremarkable. - Cultures negative x24 hours - Patient reports significant improvement in chest pain - Cardio on consult; signed off - Will request records from [facility] [place] to ensure completion of treatment there 2) Back pain - Patient has persistent back pain; CT shows DJD of L3-L4 - MRI L spine obtained today to r/o diskitis or epidural abscess; shows mild degenerative changes, with no evidence of discitis or epidural abscess - Morphine prn for pain and colace to prevent constipation - Flexeril 5 mg tid 3) Polysubstance abuse, including alcohol - Patient appears to be actively withdrawing - Continue ativan 2 q4 prn - ciwa protocol - thiamine, folic acid, and multi vitamin - IVF 4) Leukocytosis r/o sirs/sepsis - Patient was febrile yesterday to 100.6; likely 2/2 withdrawal; no tachycardia or tachypnea or hypotension - Urine and blood cultures negative x24 hours - Considering history of endocarditis, will empirically start Merrem and Vanc pending final culture results - Requested ID consult; appreciate recs 5) Elevated liver related markers - Improving; likely 2/2 polysubstance abuse 6) 6 mm Pulmonary nodule - Repeat CT in 6-12 months. 7) DVT and GI prophylaxis: Pepcid for gi prophylaxis. Heparin for dvt prophylaxis. Patient seen, examined and case discussed with Dr. Silveira <Nallely Silveira - Last Filed: 10/19/17 15:01> Objective - Vital Signs/Intake and Output Vital Signs (last 24 hours): Temp Pulse Resp BP Pulse Ox 99.0 F 57 L 18 105/66 97 10/19/17 07:30 10/19/17 07:30 10/19/17 07:30 10/19/17 07:30 10/19/17 07:30 Intake and Output: 10/19/17 10/19/17 06:59 18:59 Intake Total 900 Balance 900 - Medications Medications: Current Medications Acetaminophen (Tylenol 325mg Tab) 650 mg PO Q6H PRN PRN Reason: Fever >100.4 F Cyclobenzaprine HCl (Flexeril) 5 mg PO TID [facility] Last Admin: 10/19/17 13:23 Dose: 5 mg Docusate Sodium (Colace) 100 mg PO BID [facility] Last Admin: 10/19/17 09:16 Dose: 100 mg Famotidine (Pepcid) 40 mg PO HS [facility] Last Admin: 10/18/17 21:06 Dose: 40 mg Folic Acid (Folic Acid) 1 mg PO DAILY [facility] Last Admin: 10/19/17 09:16 Dose: 1 mg Gabapentin (Neurontin) 600 mg PO HS [facility] PRN Reason: Protocol Last Admin: 10/18/17 21:06 Dose: 600 mg Heparin Sodium (Porcine) (Heparin) 5,000 units SC Q8 [facility] PRN Reason: Protocol Last Admin: 10/19/17 13:18 Dose: Not Given Hydrocortisone (Anusol-Hc) 1 gm [place] Q6H PRN PRN Reason: rectal pain Meropenem 500 mg/ Sodium (Chloride) 100 mls @ 100 mls/hr IVPB Q8 [facility] PRN Reason: Protocol Stop: 10/24/17 09:16 Last Admin: 10/19/17 13:19 Dose: 100 mls/hr Vancomycin HCl (Vancomycin 1gm) 1 gm in 250 mls @ 167 mls/hr IVPB Q12H [facility] PRN Reason: Protocol Last Admin: 10/19/17 09:15 Dose: 167 mls/hr Ibuprofen (Motrin Tab) 600 mg PO Q6H PRN PRN Reason: Pain, Mild (1-3) Last Admin: 10/19/17 13:25 Dose: 600 mg Ketorolac Tromethamine (Toradol) 30 mg IVP Q12H PRN PRN Reason: Pain, severe (8-10) Stop: 10/21/17 11:06 Last Admin: 10/19/17 09:22 Dose: 30 mg Lorazepam (Ativan) 2 mg IVP Q4H PRN; Protocol PRN Reason: Symptoms of alcohol withdrawl Last Admin: 10/18/17 21:18 Dose: 2 mg Ondansetron HCl (Zofran Inj) 4 mg IVP Q4H PRN PRN Reason: Nausea/Vomiting Oxycodone/Acetaminophen (Percocet 5/325 Mg Tab) 1 tab PO Q4H PRN PRN Reason: Pain, severe (8-10) Stop: 10/22/17 10:24 Last Admin: 10/19/17 13:23 Dose: 1 tab Polyethylene Glycol (Miralax) 17 gm PO DAILY [facility] Last Admin: 10/19/17 09:17 Dose: 17 gm Thiamine HCl (Vitamin B1 Tab) 100 mg PO DAILY [facility] Last Admin: 10/19/17 09:17 Dose: 100 mg Vitamin B Complex/Vit C/Folic Acid (Nephro-Meghan) 1 tab PO 0800 [facility] Last Admin: 10/19/17 08:08 Dose: 1 tab - Labs Labs: 10/19/17 10:00 10/19/17 10:00 PT 13.4 SECONDS (9.4-12.5) H 10/15/17 20:33 INR 1.17 (0.93-1.08) H 10/15/17 20:33 APTT 28.8 Seconds (25.1-36.5) 10/15/17 20:33 Attending/Attestation - Attestation I have personally seen and examined this patient.: Yes I have fully participated in the care of the patient.: Yes I have reviewed all pertinent clinical information, including history, physical exam and plan: Yes Notes (Text): I have seen and examined the patient at bedside. Agree with the above note with the following additions/ exceptions: Briefly this is 42 year old male with history of homelessness, endocarditis apparently completed treatment at [facility] [place], chronic alcohol abuse, IVDA (Cocaine and heroin) who was admitted for evaluation of chest pain, back pain and found to have SIRS and suspected sepsis from bacteremia with given history of endocarditis. Cultures pending. Vanco and meropenem was started today. Will obtain records from [facility] [place] to find out if he completed treatment. Echo ordered. Awaiting cardio consult. MRI LS spine pending. Will start flexeril and morphine. He is not withdrawing at this time. Counselling provided regarding polysubstance abuse and alcohol cessation. He was also found to have 6 mm pulmonary nodule. Repeat CT scan recommended. HIV result pending. Upon discharge patient will follow up in [facility] clinic. Dr Nallely Silveira
[2017-10-17] MEDS: Vancomycin 1gm in NS 250ml 1 GM/250 ML BAG IVPB SCH ×2 (11:51→22:38)
[2017-10-17] MEDS: Meropenem 500 MG in Sodium Chloride 0.9% 100 ML IVPB SCH ×3 (12:00→22:32)
--- NOTE | 2017-10-17 16:28 | CP.PCM.CON ---
History of Present Illness - History of Present Illness History of Present Illness: 42 year old male with PMH of homelessness, history of [place]itis [place] [facility] [place] IVDA with cocaine and heroin came in [place] [facility] [place] complaining of substernal chest pain as well as generalized weakness for the past 2-3 days, associated with lower back pain. He denies having fever or chills but developed fever during this admission. He denies headache or dizziness, no sore throat, no rhinorrhea, no runny nose, occasional cough, no abdominal pain, no diarrhea, no dysuria. As per patient, he was on IV antibiotics for one month, then switched to Amoxicillin for 3 months. Infectious Diseases consult is requested to further evaluate and manage. Review of Systems - Review of Systems All systems: reviewed and no additional remarkable complaints except (as per HPI ) Past Patient History - Tetanus Immunizations Tetanus Immunization: Unknown - Past Social History Smoking Status: Heavy Smoker > 10 Cigarettes Daily - CARDIAC Other/Comment: endocarditis - PULMONARY Hx Respiratory Disorders: No - NEUROLOGICAL Hx Neurological Disorder: No - HEENT Hx HEENT Problems: No - RENAL Hx Chronic Kidney Disease: No - ENDOCRINE/METABOLIC Hx Endocrine Disorders: No - HEMATOLOGICAL/ONCOLOGICAL Hx Blood Disorders: No - INTEGUMENTARY Hx Dermatological Problems: No - MUSCULOSKELETAL/RHEUMATOLOGICAL Hx Falls: Yes - GASTROINTESTINAL Hx Gastrointestinal Disorders: No - GENITOURINARY/GYNECOLOGICAL Hx Genitourinary Disorders: No - PSYCHIATRIC Hx Substance Use: Yes (heroin, cocaine) Other/Comment: heroin and cocaine abuse. etoh, pint of vodka daily - SURGICAL HISTORY Hx Surgeries: No - ANESTHESIA Hx Anesthesia: Yes Meds Allergies/Adverse Reactions: Allergies Allergy/AdvReac Type Severity Reaction Status Date / Time No Known Allergies Allergy Verified 10/15/17 19:36 - Medications Medications: Current Medications Acetaminophen (Tylenol 325mg Tab) 650 mg PO Q6H PRN PRN Reason: Fever >100.4 F Aspirin (Aspirin Chewable) 81 mg PO DAILY [facility] Last Admin: 10/17/17 09:18 Dose: 81 mg Cyclobenzaprine HCl (Flexeril) 5 mg PO TID [facility] Last Admin: 10/17/17 13:50 Dose: 5 mg Docusate Sodium (Colace) 100 mg PO BID [facility] Last Admin: 10/17/17 09:16 Dose: 100 mg Famotidine (Pepcid) 40 mg PO HS [facility] Last Admin: 10/16/17 22:37 Dose: 40 mg Folic Acid (Folic Acid) 1 mg PO DAILY [facility] Last Admin: 10/17/17 09:16 Dose: 1 mg Heparin Sodium (Porcine) (Heparin) 5,000 units SC Q8 [facility] PRN Reason: Protocol Last Admin: 10/17/17 13:51 Dose: 5,000 units Sodium Chloride (Sodium Chloride 0.9%) 1,000 mls @ 100 mls/hr IV .Q10H [facility] Last Admin: 10/17/17 00:06 Dose: 100 mls/hr Meropenem 500 mg/ Sodium (Chloride) 100 mls @ 100 mls/hr IVPB Q8 [facility] PRN Reason: Protocol Stop: 10/24/17 09:16 Last Admin: 10/17/17 13:49 Dose: 100 mls/hr Vancomycin HCl (Vancomycin 1gm) 1 gm in 250 mls @ 167 mls/hr IVPB Q12H [facility] PRN Reason: Protocol Last Admin: 10/17/17 11:51 Dose: 167 mls/hr Lorazepam (Ativan) 2 mg IVP Q4H PRN; Protocol PRN Reason: Symptoms of alcohol withdrawl Last Admin: 10/17/17 11:56 Dose: 2 mg Morphine Sulfate (Morphine) 2 mg IVP Q4H PRN PRN Reason: Pain, moderate (4-7) Last Admin: 10/17/17 14:02 Dose: 2 mg Ondansetron HCl (Zofran Inj) 4 mg IVP Q4H PRN PRN Reason: Nausea/Vomiting Thiamine HCl (Vitamin B1 Tab) 100 mg PO DAILY [facility] Last Admin: 10/17/17 09:16 Dose: 100 mg Vitamin B Complex/Vit C/Folic Acid (Nephro-Meghan) 1 tab PO 0800 [facility] Last Admin: 10/17/17 09:19 Dose: 1 tab Physical Exam - Constitutional Appears: Chronically Ill - Head Exam Head Exam: NORMAL INSPECTION - ENT Exam ENT Exam: Mucous Membranes Moist - Neck Exam Neck exam: Negative for: Meningismus - Respiratory Exam Respiratory Exam: Decreased Breath Sounds - Cardiovascular Exam Cardiovascular Exam: +S1, +S2 - GI/Abdominal Exam GI & Abdominal Exam: Soft. absent: Tenderness Results - Vital Signs Recent Vital Signs: Last Vital Signs Temp 99.3 F 10/17/17 08:53 Pulse 92 H 02/01/18 08:53 Resp 18 10/17/17 08:53 BP 116/68 10/17/17 08:53 Pulse Ox 96 10/17/17 08:53 - Labs Result Diagrams: 10/17/17 05:45 10/17/17 05:45 Labs: Laboratory Results - last 24 hr 10/17/17 10/17/17 10/17/17 05:45 05:45 11:53 WBC 15.9 H RBC 4.27 Hgb 11.8 L Hct 36.5 L MCV 85.5 MCH 27.6 MCHC 32.3 RDW 15.4 H Plt Count 364 MPV 8.7 Gran % 74.3 H Lymph % (Auto) 12.9 L Duc[place]ne % (Auto) 12.5 H Eos % (Auto) 0.1 L Baso % (Auto) 0.2 Gran # 11.83 H Lymph # (Auto) 2.1 Duc[place]ne # (Auto) 2.0 H Eos # (Auto) 0.0 Baso # (Auto) 0.03 Sodium 137 Potassium 3.9 Chloride 104 Carbon Dioxide 20 L Anion Gap 17 BUN 10 Creatinine 0.8 Est GFR ( Amer) > 60 Est GFR (Non-Af Amer) > 60 Random Glucose 119 H Calcium 9.3 Total Bilirubin 0.8 AST 36 ALT 34 Alkaline Phosphatase 52 Total Protein 7.7 Albumin 3.5 Globulin 4.2 Albumin/Globulin Ratio 0.9 L Influenza Typ A,B (EIA) Negative for flu a/b Assessment & Plan - Assessment and Plan (Free Text) Plan: Assessment Systemic Inflammatory Response Syndrome, R/O sepsis from bacteremia in this patient with history of endocarditis homelessness history of [place]ocarditis [place] [facility] [place]DA with cocaine and heroin Plan Started patient on Vancomycin and Merrme pending blood cx, urine cx, PCT; follow up 2D echo, lumbar MRI; reviewed CT chest that did not show pneumonia will monitor clinically follow up HIV test
--- NOTE | 2017-10-17 17:09 | CARD ---
APPROVED REPORT EXAM: Two-dimensional and M-mode echocardiogram with Doppler and color Doppler. INDICATION Infection:Rule out subacute bacterial endocarditis 2D DIMENSIONS IVSd1.1 (0.7-1.1cm)LVDd4.6 (3.9-5.9cm) PWd1.1 (0.7-1.1cm)LVDs3.1 (2.5-4.0cm) FS (%) 32.2 %LVEF (%)60.5 (>50%) M-Mode DIMENSIONS Left Atrium (MM)3.51 (2.5-4.0cm)Aortic Root2.70 (2.2-3.7cm) Aortic Cusp Exc.2.05 (1.5-2.0cm) Aortic Valve AoV Peak Qaazliqd789.2cm/Karla Peak GR.6mmHgLVOT Peak Icgmdyra47.9cm/s LVOT VTI15.88cm Mitral Valve MV E Yjdcdpdv83.5cm/sMV DECEL SHMP327bwOO A Hrnfebcw67.1cm/s E/A ratio1.3 TDI E/Lateral E'0.0E/Medial E'0.0 Tricuspid Valve TR Peak Vofxbsbu000wa/sTR Peak Gr.12mmHg LEFT VENTRICLE The left ventricle is normal size. There is normal left ventricular wall thickness. The left ventricular function is normal.EF-60-65% There is normal LV segmental wall motion. The left ventricular diastolic function is normal. No left ventricle thrombus noted on this study. There is no ventricular septal defect visualized. There is no left ventricular aneurysm. There is no mass noted in the left ventricle. RIGHT VENTRICLE The right ventricle is normal size. There is normal right ventricular wall thickness. The right ventricular systolic function is normal. ATRIA The left atrium size is normal. The right atrium size is normal. The interatrial septum is intact with no evidence for an atrial septal defect. AORTIC VALVE The aortic valve is normal in structure. No aortic regurgitation is present. There is no aortic valvular stenosis. There is no aortic valvular vegetation. MITRAL VALVE The mitral valve is not well visualized. Mitral regurgitation is trace. There is no mitral valve stenosis. There is no evidence of mitral valve prolapse. TRICUSPID VALVE The tricuspid valve is normal in structure. There is trace tricuspid regurgitation. There is no tricuspid valve stenosis. There is no tricuspid valve prolapse or vegetation. PULMONIC VALVE The pulmonary valve is normal in structure. There is no pulmonic valvular regurgitation. There is no pulmonic valvular stenosis. GREAT VESSELS The aortic root is normal in size. The ascending aorta is normal in size. The pulmonary artery is normal. The IVC is normal in size and collapses >50% with inspiration. PERICARDIAL EFFUSION There is no pleural effusion. There is no pericardial effusion. <Conclusion> Normal chamber Size. EF-60-65% trace MR /TR
[2017-10-18] MEDS: Morphine 5 MG/ML SYRINGE IVP PRN (04:11)
[2017-10-18] MEDS: Sodium Chloride 0.9% 1,000 ML IV SCH (04:12)
[2017-10-18] MEDS: Meropenem 500 MG in Sodium Chloride 0.9% 100 ML IVPB SCH ×3 (05:42→23:37)
[2017-10-18] MEDS ORDERED: Sodium Chloride 0.9% 1,000 ML IV SCH (06:42)
[2017-10-18 06:50] LABS: BASO # 0.03 K/mm3 (0.0-2.0); BASO % 0.2 % (0.0-3.0); EOS # 0.1 (0.0-0.7); EOS % 0.6 % (1.5-5.0); GRAN # 8.87 (1.4-6.5); GRAN % 64.8 % (50.0-68.0); HEMOGLOBIN 11.5 g/dL (14.0-18.0); LYMPH % 22.2 % (22.0-35.0); MEAN CELL VOLUME 86.7 fl (80.0-105.0); MEAN CORPUSCULAR HEMOGLOBIN 27.8 pg (25.0-35.0); MEAN PLATELET VOLUME 9.2 fl (7.0-11.0); MONO # 1.7 (0.1-0.6); MONO % 12.2 % (1.0-6.0); RBC 4.14 10^6/uL (3.5-6.1); RED CELL DISTRIBUTION WIDTH 15.4 % (11.5-14.5); WHITE BLOOD COUNT 13.7 10^3/ul (4.5-11.0)
[2017-10-18 07:02] LABS: ALB/GLOB RATIO 0.9 (1.1-1.8); ALBUMIN 3.4 g/dL (3.0-4.8); ALT/SGPT 39 U/L (7-56); AST/SGOT 27 U/L (17-59); BLOOD UREA NITROGEN 14 mg/dL (7-21); CALCIUM 9.3 mg/dL (8.4-10.5); GFR AFRICAN-AMERICAN > 60; GFR NON-AFRICAN AMERICAN > 60
[2017-10-18] MEDS: Multivitamin Vitamin B Complex (Nephro-Vite) Tab PO SCH (09:31)
[2017-10-18] MEDS: Vancomycin 1gm in NS 250ml 1 GM/250 ML BAG IVPB SCH ×2 (09:31→21:05)
--- NOTE | 2017-10-18 10:12 | CT ---
PROCEDURE: CT HEAD WITHOUT CONTRAST. HISTORY: fall, head trauma COMPARISON: None available. TECHNIQUE: Axial computed tomography images were obtained through the head/brain without intravenous contrast. Radiation dose: Total exam DLP = 968 mGy-cm. This CT exam was performed using one or more of the following dose reduction techniques: Automated exposure control, adjustment of the mA and/or kV according to patient size, and/or use of iterative reconstruction technique. FINDINGS: HEMORRHAGE: No intracranial hemorrhage. BRAIN: No mass effect or edema. No atrophy or chronic microvascular ischemic changes. VENTRICLES: Unremarkable. No hydrocephalus. CALVARIUM: Unremarkable. PARANASAL SINUSES: Unremarkable as visualized. No significant inflammatory changes. MASTOID AIR CELLS: Unremarkable as visualized. No inflammatory changes. OTHER FINDINGS: There is a nondisplaced fracture of the left zygomatic arch. This appears to be chronic. There is no soft tissue swelling. Clinical correlation is suggest IMPRESSION: No acute intracranial findings. Chronic appearing fracture of the left zygomatic arch
--- NOTE | 2017-10-18 11:29 | CP.PCM.PN ---
<Maureen He - Last Filed: 10/18/17 12:05> Subjective - Date & Time of Evaluation Date of Evaluation: 10/18/17 Time of Evaluation: 07:30 - Subjective Subjective: Maureen eH DO PGY1 - IM Progress Note Patient seen and examined at bedside. No acute events overnight. Patient still complaining of severe right sided back pain radiating "like lightning" to his toes. He feels as though the pain is worsening. He is having difficulty walking and perceived weakness due to the pain. He denies numbness or parasthesias. He also rerports that when he fell he hit his head. He denies headache, vision changes, hearing loss. He also denies any chest pain, shortness of breath. He does admit to constipation, and pain with defecation. He denies hematochezia or melena. Objective - Vital Signs/Intake and Output Vital Signs (last 24 hours): Temp Pulse Resp BP Pulse Ox 98.7 F 85 20 118/62 100 10/18/17 06:29 10/18/17 06:29 10/18/17 06:29 10/18/17 06:43 10/18/17 06:29 Intake and Output: 10/18/17 10/18/17 06:59 18:59 Intake Total 3000 Output Total 1400 Balance 1600 - Medications Medications: Current Medications Acetaminophen (Tylenol 325mg Tab) 650 mg PO Q6H PRN PRN Reason: Fever >100.4 F Aspirin (Aspirin Chewable) 81 mg PO DAILY [facility] Last Admin: 10/18/17 09:30 Dose: 81 mg Cyclobenzaprine HCl (Flexeril) 5 mg PO TID [facility] Last Admin: 10/18/17 09:31 Dose: 5 mg Docusate Sodium (Colace) 100 mg PO BID [facility] Last Admin: 10/18/17 09:30 Dose: 100 mg Famotidine (Pepcid) 40 mg PO HS [facility] Last Admin: 10/17/17 22:33 Dose: 40 mg Folic Acid (Folic Acid) 1 mg PO DAILY [facility] Last Admin: 10/18/17 09:31 Dose: 1 mg Gabapentin (Neurontin) 600 mg PO HS [facility] PRN Reason: Protocol Heparin Sodium (Porcine) (Heparin) 5,000 units SC Q8 [facility] PRN Reason: Protocol Last Admin: 10/18/17 05:47 Dose: 5,000 units Meropenem 500 mg/ Sodium (Chloride) 100 mls @ 100 mls/hr IVPB Q8 [facility] PRN Reason: Protocol Stop: 10/24/17 09:16 Last Admin: 10/18/17 05:42 Dose: 100 mls/hr Vancomycin HCl (Vancomycin 1gm) 1 gm in 250 mls @ 167 mls/hr IVPB Q12H [facility] PRN Reason: Protocol Last Admin: 10/18/17 09:31 Dose: 167 mls/hr Ibuprofen (Motrin Tab) 400 mg PO Q4H PRN PRN Reason: Pain, Mild (1-3) Ketorolac Tromethamine (Toradol) 30 mg IVP Q12H PRN PRN Reason: Pain, severe (8-10) Stop: 10/21/17 11:06 Lorazepam (Ativan) 2 mg IVP Q4H PRN; Protocol PRN Reason: Symptoms of alcohol withdrawl Last Admin: 10/17/17 23:58 Dose: 2 mg Ondansetron HCl (Zofran Inj) 4 mg IVP Q4H PRN PRN Reason: Nausea/Vomiting Polyethylene Glycol (Miralax) 17 gm PO DAILY [facility] Thiamine HCl (Vitamin B1 Tab) 100 mg PO DAILY [facility] Last Admin: 10/17/17 09:16 Dose: 100 mg Vitamin B Complex/Vit C/Folic Acid (Nephro-Meghan) 1 tab PO 0800 [facility] Last Admin: 10/18/17 09:31 Dose: 1 tab - Labs Labs: 10/18/17 05:30 10/18/17 05:30 PT 13.4 SECONDS (9.4-12.5) H 10/15/17 20:33 INR 1.17 (0.93-1.08) H 10/15/17 20:33 APTT 28.8 Seconds (25.1-36.5) 10/15/17 20:33 - Constitutional Appears: Non-toxic, In Acute Distress (mild) - Head Exam Head Exam: ATRAUMATIC, NORMOCEPHALIC - Eye Exam Eye Exam: EOMI, Normal appearance, PERRL - ENT Exam ENT Exam: Mucous Membranes Moist - Neck Exam Neck Exam: Normal Inspection - Respiratory Exam Respiratory Exam: Clear to Ausculation Bilateral, NORMAL BREATHING PATTERN - Cardiovascular Exam Cardiovascular Exam: RRR, +S1, +S2. absent: Diastolic murmur, Murmur - GI/Abdominal Exam GI & Abdominal Exam: Soft. absent: Tenderness - Extremities Exam Extremities Exam: Full ROM. absent: Calf Tenderness, Pedal Edema - Back Exam Additional comments: R SI joint tenderness R SLR positive No midline tenderness Sensation grossly intact - Neurological Exam Neurological Exam: Alert, Awake, Oriented x3 Neuro motor strength exam: Left Upper Extremity: 5, Right Upper Extremity: 5, Left Lower Extremity: 5, Right Lower Extremity: 5 - Psychiatric Exam Psychiatric exam: Normal Affect, Normal Mood - Skin Skin Exam: Dry, Intact, Normal Color Assessment and Plan - Assessment and Plan (Free Text) Assessment: Patient is a 42 y/o Male with PMHx of homeless, endocarditis, chronic alcohol abuse, IVDA- cocaine and heroine presenting with substernal chest pain radiating to the back and lower back pain for 2 days. Patient tested positive for cocaine and heroine in the ED. CT chest revealed no PE, had [address] of L spine with DJD of L3-L4. MRI L spine shows mild degenerative changes; no discitis or epidural abscess. Plan: 1) Chest pain r/o ACS due to cocaine versus endocarditis. - Serial troponins negative - Echo unremarkable; no vegetations - Discontinue asa - Cultures now show gram positive cocci in clusters, in two bottles - Patient no longer complaining of chest pain - Cardio on consult; signed off - Will [place] [facility] 2) Back pain - Patient has persistent back pain; CT shows DJD of L3-L4; MRI shows mild degenerative changes, no discitis or epidural abscess - Point tenderness over R SI joint with positive SLR; likely musculoskeletal in nature - Start Motrin 400mg PO Q4 PRN, Toradol 30mg IV Q12H PRN for max 6 doses, Gabapentin 600mg PO HS - Give one stat dose Gabpentin 300mg PO - Discontinued morphine and started methadone, as below - Continue Flexeril 5mg PO TID - Miralax and Colace to prevent constipation 3) Polysubstance abuse, including alcohol - Patient appears to be actively withdrawing from alcohol - Continue ativan 2 q4 prn - Discontinue morphine; start methadone, 20mg today, decrease by 5mg daily - [facility] protocol - Thiamine, folic acid, and multi vitamin 4) Leukocytosis - Persistent leukocytosis; afebrile - Blood cultures now positive for gram positive cocci in clusters; pending speciation and sensitivities - Continue Merrem and Vanc - Procal pending - HIV serology pending - Requested ID consult; appreciate recs 5) Elevated liver related markers - Improving; likely 2/2 polysubstance abuse 6) 6 mm Pulmonary nodule - Repeat CT in 6-12 months. 7) DVT and GI prophylaxis: Pepcid for GI prophylaxis. Heparin for DVT prophylaxis. Patient seen, examined and case discussed with Dr. Silveira <Nallely Silveira B - Last Filed: 10/19/17 15:48> Objective - Vital Signs/Intake and Output Vital Signs (last 24 hours): Temp Pulse Resp BP Pulse Ox 99.0 F 57 L 18 105/66 97 10/19/17 07:30 10/19/17 07:30 10/19/17 07:30 10/19/17 07:30 10/19/17 07:30 Intake and Output: 10/19/17 10/19/17 06:59 18:59 Intake Total 900 Balance 900 - Medications Medications: Current Medications Acetaminophen (Tylenol 325mg Tab) 650 mg PO Q6H PRN PRN Reason: Fever >100.4 F Cyclobenzaprine HCl (Flexeril) 5 mg PO TID [facility] Last Admin: 10/19/17 13:23 Dose: 5 mg Docusate Sodium (Colace) 100 mg PO BID [facility] Last Admin: 10/19/17 09:16 Dose: 100 mg Famotidine (Pepcid) 40 mg PO HS [facility] Last Admin: 10/18/17 21:06 Dose: 40 mg Folic Acid (Folic Acid) 1 mg PO DAILY [facility] Last Admin: 10/19/17 09:16 Dose: 1 mg Gabapentin (Neurontin) 600 mg PO HS [facility] PRN Reason: Protocol Last Admin: 10/18/17 21:06 Dose: 600 mg Heparin Sodium (Porcine) (Heparin) 5,000 units SC Q8 [facility] PRN Reason: Protocol Last Admin: 10/19/17 13:18 Dose: Not Given Hydrocortisone (Anusol-Hc) 1 gm [place] Q6H PRN PRN Reason: rectal pain Meropenem 500 mg/ Sodium (Chloride) 100 mls @ 100 mls/hr IVPB Q8 [facility] PRN Reason: Protocol Stop: 10/24/17 09:16 Last Admin: 10/19/17 13:19 Dose: 100 mls/hr Vancomycin HCl (Vancomycin 1gm) 1 gm in 250 mls @ 167 mls/hr IVPB Q12H [facility] PRN Reason: Protocol Last Admin: 10/19/17 09:15 Dose: 167 mls/hr Ibuprofen (Motrin Tab) 600 mg PO Q6H PRN PRN Reason: Pain, Mild (1-3) Last Admin: 10/19/17 13:25 Dose: 600 mg Ketorolac Tromethamine (Toradol) 30 mg IVP Q12H PRN PRN Reason: Pain, severe (8-10) Stop: 10/21/17 11:06 Last Admin: 10/19/17 09:22 Dose: 30 mg Lorazepam (Ativan) 2 mg IVP Q4H PRN; Protocol PRN Reason: Symptoms of alcohol withdrawl Last Admin: 10/18/17 21:18 Dose: 2 mg Ondansetron HCl (Zofran Inj) 4 mg IVP Q4H PRN PRN Reason: Nausea/Vomiting Oxycodone/Acetaminophen (Percocet 5/325 Mg Tab) 1 tab PO Q4H PRN PRN Reason: Pain, severe (8-10) Stop: 10/22/17 10:24 Last Admin: 10/19/17 13:23 Dose: 1 tab Polyethylene Glycol (Miralax) 17 gm PO DAILY [facility] Last Admin: 10/19/17 09:17 Dose: 17 gm Thiamine HCl (Vitamin B1 Tab) 100 mg PO DAILY [facility] Last Admin: 10/19/17 09:17 Dose: 100 mg Vitamin B Complex/Vit C/Folic Acid (Nephro-Meghan) 1 tab PO 0800 [facility] Last Admin: 10/19/17 08:08 Dose: 1 tab - Labs Labs: 10/19/17 10:00 10/19/17 10:00 PT 13.4 SECONDS (9.4-12.5) H 10/15/17 20:33 INR 1.17 (0.93-1.08) H 10/15/17 20:33 APTT 28.8 Seconds (25.1-36.5) 10/15/17 20:33 Attending/Attestation - Attestation I have personally seen and examined this patient.: Yes I have fully participated in the care of the patient.: Yes I have reviewed all pertinent clinical information, including history, physical exam and plan: Yes Notes (Text): I have seen and examined the patient at bedside. Agree with the above note with the following additions/ exceptions: Briefly this is 42 year old male with history of homelessness, endocarditis apparently [place] [facility] chronic alcohol abuse, IVDA (Cocaine and heroin) who was admitted for evaluation of chest pain, back pain and found to have SIRS and suspected sepsis from bacteremia with given history of endocarditis. Patient is on vancomycin and meropenem. Blood cultures are positive for GPC in clusters. Awaiting sensitivities. Awaiting [place] [facility] [place] find out if he completed treatment. Echo result pending. MRI LS spine did not reveal any abscess. Will start gabapentin today along with flexeril. Continue tapering doeses of methadone, thiamine, MVI and folic acid. Counselling provided regarding polysubstance abuse and alcohol cessation. He was also found to have 6 mm pulmonary nodule. Repeat CT scan recommended. HIV negative. Upon discharge patient will follow up in [facility] clinic. Dr Nallely Silveira
[2017-10-18] MEDS ORDERED: Hydrocortisone 2.5% Rectal Cream(30 gm) PR PRN ×2 (11:33→11:43)
[2017-10-18] MEDS: POLYETHYLENE GLYCOL 3350 17 GM/Dose PACKET PO SCH (11:56)
--- NOTE | 2017-10-18 12:39 | CP.PCM.PN ---
Subjective - Date & Time of Evaluation Date of Evaluation: 10/18/17 Time of Evaluation: 10:55 - Subjective Subjective: No fevers, still having back pain, still feels weak and tired. Objective - Vital Signs/Intake and Output Vital Signs (last 24 hours): Temp Pulse Resp BP Pulse Ox 98.7 F 85 20 118/62 100 10/18/17 06:29 10/18/17 06:29 10/18/17 06:29 10/18/17 06:43 10/18/17 06:29 Intake and Output: 10/18/17 10/18/17 06:59 18:59 Intake Total 3000 Output Total 1400 Balance 1600 - Medications Medications: Current Medications Acetaminophen (Tylenol 325mg Tab) 650 mg PO Q6H PRN PRN Reason: Fever >100.4 F Aspirin (Aspirin Chewable) 81 mg PO DAILY [facility] Last Admin: 10/17/17 09:18 Dose: 81 mg Cyclobenzaprine HCl (Flexeril) 5 mg PO TID [facility] Last Admin: 10/17/17 18:18 Dose: 5 mg Docusate Sodium (Colace) 100 mg PO BID [facility] Last Admin: 10/17/17 18:18 Dose: 100 mg Famotidine (Pepcid) 40 mg PO HS [facility] Last Admin: 10/17/17 22:33 Dose: 40 mg Folic Acid (Folic Acid) 1 mg PO DAILY [facility] Last Admin: 10/17/17 09:16 Dose: 1 mg Heparin Sodium (Porcine) (Heparin) 5,000 units SC Q8 [facility] PRN Reason: Protocol Last Admin: 10/18/17 05:47 Dose: 5,000 units Meropenem 500 mg/ Sodium (Chloride) 100 mls @ 100 mls/hr IVPB Q8 [facility] PRN Reason: Protocol Stop: 10/24/17 09:16 Last Admin: 10/18/17 05:42 Dose: 100 mls/hr Vancomycin HCl (Vancomycin 1gm) 1 gm in 250 mls @ 167 mls/hr IVPB Q12H [facility] PRN Reason: Protocol Last Admin: 10/17/17 22:38 Dose: 167 mls/hr Sodium Chloride (Sodium Chloride 0.9%) 1,000 mls @ 150 mls/hr IV .Q6H40M [facility] Lorazepam (Ativan) 2 mg IVP Q4H PRN; Protocol PRN Reason: Symptoms of alcohol withdrawl Last Admin: 10/17/17 23:58 Dose: 2 mg Morphine Sulfate (Morphine) 2 mg IVP Q4H PRN PRN Reason: Pain, moderate (4-7) Last Admin: 10/18/17 04:11 Dose: 2 mg Ondansetron HCl (Zofran Inj) 4 mg IVP Q4H PRN PRN Reason: Nausea/Vomiting Thiamine HCl (Vitamin B1 Tab) 100 mg PO DAILY [facility] Last Admin: 10/17/17 09:16 Dose: 100 mg Vitamin B Complex/Vit C/Folic Acid (Nephro-Mgehan) 1 tab PO 0800 [facility] Last Admin: 10/17/17 09:19 Dose: 1 tab - Labs Labs: 10/17/17 05:45 10/18/17 05:30 PT 13.4 SECONDS (9.4-12.5) H 10/15/17 20:33 INR 1.17 (0.93-1.08) H 10/15/17 20:33 APTT 28.8 Seconds (25.1-36.5) 10/15/17 20:33 - Constitutional Appears: Chronically Ill - Head Exam Head Exam: NORMAL INSPECTION - ENT Exam ENT Exam: Mucous Membranes Moist - Neck Exam Neck Exam: absent: Meningismus - Respiratory Exam Respiratory Exam: Decreased Breath Sounds - Cardiovascular Exam Cardiovascular Exam: +S1, +S2 - GI/Abdominal Exam GI & Abdominal Exam: Soft. absent: Tenderness Assessment and Plan - Assessment and Plan (Free Text) Plan: Assessment sepsis from Staph aureus bacteremia in this patient with history of endocarditis - suspicious again for endocarditis with this IV drug user homelessness history of endocarditis apparently [place] in [facility] IVDA with cocaine and heroin Plan will continue Vancomycin and will d/c Merrem - will get Vanco trough level tomorrow AM at 830AM; follow up repeat blood cx; follow up 2D echo - patient should get DANIEL if this is negative; lumbar MRI does not show osteomyelitis or discitis; reviewed CT chest that did not show pneumonia will continue to monitor clinically follow up HIV test
[2017-10-18] MEDS ORDERED: Vancomycin 2 GM in Sodium Chloride 0.9% 500 ML IVPB ONE (16:00)
[2017-10-19] MEDS: Meropenem 500 MG in Sodium Chloride 0.9% 100 ML IVPB SCH ×2 (06:22→13:19)
[2017-10-19] MEDS: Multivitamin Vitamin B Complex (Nephro-Vite) Tab PO SCH (08:08)
[2017-10-19] MEDS: Vancomycin 1gm in NS 250ml 1 GM/250 ML BAG IVPB SCH (09:15)
[2017-10-19] MEDS: POLYETHYLENE GLYCOL 3350 17 GM/Dose PACKET PO SCH (09:17)
[2017-10-19] MEDS ORDERED: Morphine 2 mg/ml ISec IVP STA (10:23)
[2017-10-19] MEDS ORDERED: Morphine 5 MG/ML SYRINGE IVP STA ×2 (10:28→20:43)
[2017-10-19 10:37] LABS: BASO # 0.04 K/mm3 (0.0-2.0); BASO % 0.4 % (0.0-3.0); EOS # 0.3 (0.0-0.7); EOS % 2.5 % (1.5-5.0); GRAN # 6.7 (1.4-6.5); GRAN % 66.8 % (50.0-68.0); HEMOGLOBIN 11.2 g/dL (14.0-18.0); LYMPH % 20.3 % (22.0-35.0); MEAN CELL VOLUME 86.7 fl (80.0-105.0); MEAN CORPUSCULAR HEMOGLOBIN 28.1 pg (25.0-35.0); MEAN CORPUSCULAR HGB CONC 32.5 g/dl (31.0-37.0); MEAN PLATELET VOLUME 8.7 fl (7.0-11.0); RBC 3.98 10^6/uL (3.5-6.1); RED CELL DISTRIBUTION WIDTH 15.4 % (11.5-14.5)
[2017-10-19 10:59] LABS: ALB/GLOB RATIO 0.8 (1.1-1.8); ALBUMIN 3.2 g/dL (3.0-4.8); ALT/SGPT 37 U/L (7-56); AST/SGOT 30 U/L (17-59); BLOOD UREA NITROGEN 17 mg/dL (7-21); CALCIUM 9.4 mg/dL (8.4-10.5); GFR AFRICAN-AMERICAN > 60; GFR NON-AFRICAN AMERICAN > 60
--- NOTE | 2017-10-19 11:51 | CP.PCM.PN ---
<Maureen He - Last Filed: 10/19/17 17:33> Subjective - Date & Time of Evaluation Date of Evaluation: 10/19/17 Time of Evaluation: 07:30 - Subjective Subjective: Maureen He DO PGY1 - IM Progess Note Patient seen and examined at bedside. No acute events overnight. Patient reports persistent severe pain in right low back, radiating down his right leg. Denies numbness, parasthesias. Patient reports that current pain regimen is not helping him. 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 He states that he wants to leave, and that if he leaves now, he will likely "do something stupid" but would not elaborate beyond that. Patient also states that he he wasn't here, he would probably be doing something harmful to his health, apparently referring to further substance abuse. Patient denies suicidal or homicidal ideation, but would not elaborate further on his plans after leaving the hospital. Patient is very distraught about his belongings. On further ROS, patient denies any fever, chills, nausea, vomiting, diarrhea, constipation, chest pain, or shortness of breath. Objective - Vital Signs/Intake and Output Vital Signs (last 24 hours): Temp Pulse Resp BP Pulse Ox 99.0 F 57 L 18 105/66 97 10/19/17 07:30 10/19/17 07:30 10/19/17 07:30 10/19/17 07:30 10/19/17 07:30 Intake and Output: 10/19/17 10/19/17 06:59 18:59 Intake Total 900 Balance 900 - Medications Medications: Current Medications Acetaminophen (Tylenol 325mg Tab) 650 mg PO Q6H PRN PRN Reason: Fever >100.4 F Cyclobenzaprine HCl (Flexeril) 5 mg PO TID COUNT [facility]CLUDES [facility] Last Admin: 10/19/17 09:16 Dose: 5 mg Docusate Sodium (Colace) 100 mg PO BID COUNT INCLUDES [facility] Last Admin: 10/19/17 09:16 Dose: 100 mg Famotidine (Pepcid) 40 mg PO HS COUNT INCLUDES [facility] Last Admin: 10/18/17 21:06 Dose: 40 mg Folic Acid (Folic Acid) 1 mg PO DAILY COUNT [facility]CLUDES [facility] Last Admin: 10/19/17 09:16 Dose: 1 mg Gabapentin (Neurontin) 600 mg PO HS [facility] PRN Reason: Protocol Last Admin: 10/18/17 21:06 Dose: 600 mg Heparin Sodium (Porcine) (Heparin) 5,000 units SC Q8 [facility] PRN Reason: Protocol Last Admin: 10/19/17 06:23 Dose: Not Given Hydrocortisone (Anusol-Hc) 1 gm CA Q6H PRN PRN Reason: rectal pain Meropenem 500 mg/ Sodium (Chloride) 100 mls @ 100 mls/hr IVPB Q8 [facility] PRN Reason: Protocol Stop: 10/24/17 09:16 Last Admin: 10/19/17 06:22 Dose: 100 mls/hr Vancomycin HCl (Vancomycin 1gm) 1 gm in 250 mls @ 167 mls/hr IVPB Q12H [facility] PRN Reason: Protocol Last Admin: 10/19/17 09:15 Dose: 167 mls/hr Ibuprofen (Motrin Tab) 600 mg PO Q6H PRN PRN Reason: Pain, Mild (1-3) Ketorolac Tromethamine (Toradol) 30 mg IVP Q12H PRN PRN Reason: Pain, severe (8-10) Stop: 10/21/17 11:06 Last Admin: 10/19/17 09:22 Dose: 30 mg Lorazepam (Ativan) 2 mg IVP Q4H PRN; Protocol PRN Reason: Symptoms of alcohol withdrawl Last Admin: 10/18/17 21:18 Dose: 2 mg Ondansetron HCl (Zofran Inj) 4 mg IVP Q4H PRN PRN Reason: Nausea/Vomiting Oxycodone/Acetaminophen (Percocet 5/325 Mg Tab) 1 tab PO Q4H PRN PRN Reason: Pain, severe (8-10) Stop: 10/22/17 10:24 Polyethylene Glycol (Miralax) 17 gm PO DAILY COUNT INCLUDES [facility] Last Admin: 10/19/17 09:17 Dose: 17 gm Thiamine HCl (Vitamin B1 Tab) 100 mg PO DAILY COUNT INCLUDES [facility] Last Admin: 10/19/17 09:17 Dose: 100 mg Vitamin B Complex/Vit C/Folic Acid (Nephro-Meghan) 1 tab PO 0800 COUNT [facility]CLUDES [facility] Last Admin: 10/19/17 08:08 Dose: 1 tab - Labs Labs: 10/19/17 10:00 10/19/17 10:00 PT 13.4 SECONDS (9.4-12.5) H 10/15/17 20:33 INR 1.17 (0.93-1.08) H 10/15/17 20:33 APTT 28.8 Seconds (25.1-36.5) 10/15/17 20:33 - Constitutional Appears: Non-toxic, Agitated - Head Exam Head Exam: ATRAUMATIC, NORMOCEPHALIC - Eye Exam Eye Exam: EOMI, Normal appearance, PERRL - ENT Exam ENT Exam: Mucous Membranes Moist - Neck Exam Neck Exam: Normal Inspection - Respiratory Exam Respiratory Exam: Clear to Ausculation Bilateral, NORMAL BREATHING PATTERN - Cardiovascular Exam Cardiovascular Exam: RRR, +S1, +S2. absent: Murmur - GI/Abdominal Exam GI & Abdominal Exam: Soft, Normal Bowel Sounds. absent: Tenderness - Extremities Exam Extremities Exam: absent: Calf Tenderness, Pedal Edema Additional comments: Limited ROM in right leg due to pain Track goode and healed abrasions over all extremities - Back Exam Additional comments: Point tenderness over R SI joint - Neurological Exam Neurological Exam: Alert, Awake, Oriented x3 Neuro motor strength exam: Left Upper Extremity: 5, Right Upper Extremity: 5, Left Lower Extremity: 5, Right Lower Extremity: 5 - Psychiatric Exam Psychiatric exam: Agitated, Anxious - Skin Skin Exam: Dry, Intact Additional comments: Multiple healed abrasions diffusely Assessment and Plan - Assessment and Plan (Free Text) Assessment: Patient is a 42 y/o Male with PMHx of homeless, endocarditis, chronic alcohol abuse, IVDA- cocaine and heroine presenting with substernal chest pain radiating to the back and lower back pain for 2 days. Patient tested positive for cocaine and heroine in the ED. CT chest revealed no PE, had [address] of L spine with DJD of L3-L4. MRI L spine shows mild degenerative changes; no discitis or epidural abscess. Plan: 1) Chest pain r/o ACS due to cocaine versus endocarditis. - Chest pain resolved - Echo unremarkable; no vegetations - Cultures now show gram positive cocci in clusters, in two bottles - Will repeat blood cultures; if he continues to be bacteremic despite >24hrs antibiotics and afebrile, consider DANIEL - Per records from [facility] [place], patient completed course of PO augmentin for history of endocarditis - Cardio on consult; signed off 2) Back pain - Patient has persistent back pain; CT shows DJD of L3-L4; MRI shows mild degenerative changes, no discitis or epidural abscess - Point tenderness over R SI joint with positive SLR; likely musculoskeletal in nature - Ordered XR of b/l SI joints - Continue motrin, toradol, gabapentin, flexeril - Start percocet 5/325 PO Q4H PRN severe pain - Miralax and Colace to prevent constipation 3) Depression; suicidal ideation - Patient has endorsed to multiple providers in the hospital thoughts of hurting himself upon discharge; possible homicidal 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 towards his 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 boss - 1:1 sitter for observation for suicidal ideation - Requested psych consult; appreciate recs 4) Polysubstance abuse, including alcohol - Withdrawal state improving - Continue ativan 2 q4 prn - Continue morphine taper; 15mg today - wa protocol - Thiamine, folic acid, and multi vitamin 5) Leukocytosis - Persistent leukocytosis, improving; afebrile - Blood cultures now positive for gram positive cocci in clusters; pending speciation and sensitivities - Continue Merrem and Vanc - Procal low - HIV serology nonrecative - ID on consult; appreciate recs 6) Elevated liver related markers - Improving; likely 2/2 polysubstance abuse 7) 6 mm Pulmonary nodule - Repeat CT in 6-12 months. DVT and GI prophylaxis: Pepcid for GI prophylaxis. Heparin for DVT prophylaxis. Patient seen, examined and case discussed with Dr. Silveira <Nallely Silveira B - Last Filed: 10/19/17 18:15> Objective - Vital Signs/Intake and Output Vital Signs (last 24 hours): Temp Pulse Resp BP Pulse Ox 98.7 F 71 18 143/75 99 10/19/17 16:30 10/19/17 16:30 10/19/17 16:30 10/19/17 16:30 10/19/17 16:30 Intake and Output: 10/19/17 10/19/17 06:59 18:59 Intake Total 900 Balance 900 - Medications Medications: Current Medications Acetaminophen (Tylenol 325mg Tab) 650 mg PO Q6H PRN PRN Reason: Fever >100.4 F Last Admin: 10/19/17 17:27 Dose: 650 mg Cyclobenzaprine HCl (Flexeril) 5 mg PO TID [facility] Last Admin: 10/19/17 17:27 Dose: 5 mg Docusate Sodium (Colace) 100 mg PO BID COUNT INCLUDES [facility] Last Admin: 10/19/17 17:39 Dose: Not Given Famotidine (Pepcid) 40 mg PO HS COUNT INCLUDES [facility] Last Admin: 10/18/17 21:06 Dose: 40 mg Folic Acid (Folic Acid) 1 mg PO DAILY COUNT INCLUDES [facility] Last Admin: 10/19/17 09:16 Dose: 1 mg Gabapentin (Neurontin) 600 mg PO [facility] PRN Reason: Protocol Last Admin: 10/18/17 21:06 Dose: 600 mg Heparin Sodium (Porcine) (Heparin) 5,000 units SC Q8 COUNT [facility]CLUDES [facility] PRN Reason: Protocol Last Admin: 10/19/17 13:18 Dose: Not Given Hydrocortisone (Anusol-Hc) 1 gm CA Q6H PRN PRN Reason: rectal pain Ibuprofen (Motrin Tab) 600 mg PO Q6H PRN PRN Reason: Pain, Mild (1-3) Last Admin: 10/19/17 13:25 Dose: 600 mg Ketorolac Tromethamine (Toradol) 30 mg IVP Q12H PRN PRN Reason: Pain, severe (8-10) Stop: 10/21/17 11:06 Last Admin: 10/19/17 09:22 Dose: 30 mg Lorazepam (Ativan) 2 mg IVP Q4H PRN; Protocol PRN Reason: Symptoms of alcohol withdrawl Last Admin: 10/19/17 17:29 Dose: 2 mg Ondansetron HCl (Zofran Inj) 4 mg IVP Q4H PRN PRN Reason: Nausea/Vomiting Oxycodone/Acetaminophen (Percocet 5/325 Mg Tab) 1 tab PO Q4H PRN PRN Reason: Pain, severe (8-10) Stop: 10/22/17 10:24 Last Admin: 10/19/17 13:23 Dose: 1 tab Polyethylene Glycol (Miralax) 17 gm PO DAILY COUNT INCLUDES [facility] Last Admin: 10/19/17 09:17 Dose: 17 gm Thiamine HCl (Vitamin B1 Tab) 100 mg PO DAILY COUNT INCLUDES [facility] Last Admin: 10/19/17 09:17 Dose: 100 mg Vitamin B Complex/Vit C/Folic Acid (Nephro-Meghan) 1 tab PO 0800 COUNT INCLUDES [facility] Last Admin: 10/19/17 08:08 Dose: 1 tab - Labs Labs: 10/19/17 10:00 10/19/17 10:00 PT 13.4 SECONDS (9.4-12.5) H 10/15/17 20:33 INR 1.17 (0.93-1.08) H 10/15/17 20:33 APTT 28.8 Seconds (25.1-36.5) 10/15/17 20:33 Attending/Attestation - Attestation I have personally seen and examined this patient.: Yes I have fully participated in the care of the patient.: Yes I have reviewed all pertinent clinical information, including history, physical exam and plan: Yes Notes (Text): I have seen and examined the patient at bedside. Agree with the above note with the following additions/ exceptions: Briefly this is 42 year old male with history of homelessness, endocarditis apparently completed treatment at [facility] [place], chronic alcohol abuse, IVDA (Cocaine and heroin) who was admitted for evaluation of chest pain, back pain and found to have sepsis from bacteremia with given history of endocarditis. Patient is on vancomycin and meropenem. Blood cultures are positive for MSSA. Awaiting sensitivities. TTE is negative for vegetation. MRI LS spine did not reveal any abscess. Patient was very angry today and is requesting to increase pain medications. He also mentioned to us that he is very upset at chute boss from [facility] because he took all his belongings. He stated that he would have done something stupid if he was not here but he was not willing to elaborate further. Patient was informed about all the medications we are giving and informed him that we will adjust his pain meds. Continue flexeril, gabapentin and add percocet. Continue tapering doses of methadone. Will start 1:1 and consult psych. I have advised nurse to call [facility] if he decides to leave [facility]. Apparently he denies suicidal ideation however I am still very concerned about the patients mental state as there is lot of anger against chute boss. Counselling provided regarding polysubstance abuse and alcohol cessation. He was also found to have 6 mm pulmonary nodule. Repeat CT scan recommended. HIV negative. Upon discharge patient will follow up in [facility] clinic. Dr Nallely Silveira
[2017-10-19] MEDS: Oxycodone/Acetaminophen 5/325 mg Tab PO PRN ×2 (13:23→23:37)
--- NOTE | 2017-10-19 15:36 | RAD ---
PROCEDURE: Sacroiliac joints HISTORY: right SI joint pain COMPARISON: TECHNIQUE: AP and oblique views FINDINGS: There is no evidence of bony fusion or degenerative change in the sacroiliac joints IMPRESSION: Negative study
[2017-10-19] MEDS: Nafcillin 2 GM in Sodium Chloride 0.9% 100 ML IVPB SCH (23:12)
--- NOTE | 2017-10-20 00:09 | PN ---
DATE: 10/18/2017 SUBJECTIVE: Patient is in bed, in no acute distress, nontoxic. PHYSICAL EXAMINATION VITAL SIGNS: Temperature is 98, blood pressure is 140/70, respiratory rate of 18. HEENT: Unremarkable. NECK: Supple. LUNGS: Have decreased breath sounds. HEART: Normal S1 and S2. ABDOMEN: Soft, nontender. LABORATORY EXAMINATION: Reveals a white count of 10,000, hemoglobin of 11, platelets of 412. Chemistries reveal a BUN of 17, creatinine of 0.8. Procalcitonin is 0.15. Urinalysis is noted. HIV is negative. Influenza is negative. Patient's blood cultures are positive for Staph aureus from the . It is pansensitive Staph aureus and repeat blood cultures are negative. ASSESSMENT AND PLAN: A 42-year-old male with sepsis with Staphylococcus aureus bacteremia. Patient has a history of endocarditis and is an intravenous drug abuser. Recommended an MRI of the spine and MRI of the sacroiliac joint. Patient did have a CAT scan of the lumbar spine with no acute seen. Today is day #1 of antibiotics. Blood cultures are negative yesterday, should have a sedimentation rate and C-reactive protein. Since it is sensitive Staphylococcus aureus, we will discontinue the vancomycin and meropenem and use nafcillin 2 g intravenously q. 6. We will follow closely with you. Terry Penaloza MD
[2017-10-20] MEDS: Oxycodone/Acetaminophen 5/325 mg Tab PO PRN (05:14)
[2017-10-20] MEDS: Nafcillin 2 GM in Sodium Chloride 0.9% 100 ML IVPB SCH ×4 (05:15→23:15)
[2017-10-20 08:50] LABS: BASO # 0.05 K/mm3 (0.0-2.0); BASO % 0.5 % (0.0-3.0); EOS # 0.5 (0.0-0.7); EOS % 5.2 % (1.5-5.0); GRAN # 4.85 (1.4-6.5); HEMOGLOBIN 10.7 g/dL (14.0-18.0); LYMPH # 2.7 (1.2-3.4); LYMPH % 29.5 % (22.0-35.0); MEAN CELL VOLUME 88.5 fl (80.0-105.0); MEAN CORPUSCULAR HEMOGLOBIN 27.9 pg (25.0-35.0); MEAN CORPUSCULAR HGB CONC 31.5 g/dl (31.0-37.0); MONO # 1.1 (0.1-0.6); MONO % 11.8 % (1.0-6.0); RBC 3.84 10^6/uL (3.5-6.1); RED CELL DISTRIBUTION WIDTH 15.7 % (11.5-14.5); WHITE BLOOD COUNT 9.2 10^3/ul (4.5-11.0)
[2017-10-20] MEDS: Multivitamin Vitamin B Complex (Nephro-Vite) Tab PO SCH (09:06)
[2017-10-20 09:07] LABS: ALB/GLOB RATIO 0.8 (1.1-1.8); ALBUMIN 2.9 g/dL (3.0-4.8); ALT/SGPT 44 U/L (7-56); AST/SGOT 43 U/L (17-59); BLOOD UREA NITROGEN 18 mg/dL (7-21); CALCIUM 9.1 mg/dL (8.4-10.5); GFR AFRICAN-AMERICAN > 60; GFR NON-AFRICAN AMERICAN > 60
[2017-10-20] MEDS: POLYETHYLENE GLYCOL 3350 17 GM/Dose PACKET PO SCH (09:11)
[2017-10-20] MEDS: Oxycodone/Acetaminophen 10/325 mg Tab PO PRN ×3 (09:42→18:56)
--- NOTE | 2017-10-20 13:53 | CP.PCM.PN ---
<Maureen He - Last Filed: 10/20/17 13:48> Subjective - Date & Time of Evaluation Date of Evaluation: 10/20/17 Time of Evaluation: 07:30 - Subjective Subjective: Maureen He DO PGY1 - IM Progress Note Patient seen and examined at bedside. No acute events overnight. Patient was also observed ambulating around the halls, with slow, antalgic, guarded gait. He reports persistent right sided low back pain radiating to right leg, positional in nature. He denies any chest pain, shortness of breath, abdominal pain, nausea, vomiting, diarrhea, constipation. He still seems upset, but explicitly denies suicidal or homicidal ideation. Objective - Vital Signs/Intake and Output Vital Signs (last 24 hours): Temp Pulse Resp BP Pulse Ox 98.7 F 77 20 110/69 97 10/20/17 07:30 10/20/17 07:30 10/20/17 07:30 10/20/17 07:30 10/20/17 07:30 Intake and Output: 10/20/17 10/20/17 06:59 18:59 Intake Total 100 Balance 100 - Medications Medications: Current Medications Acetaminophen (Tylenol 325mg Tab) 650 mg PO Q6H PRN PRN Reason: Fever >100.4 F Last Admin: 10/19/17 17:27 Dose: 650 mg Cyclobenzaprine HCl (Flexeril) 5 mg PO TID [facility] Last Admin: 10/20/17 09:11 Dose: 5 mg Docusate Sodium (Colace) 100 mg PO BID [facility] Last Admin: 10/20/17 09:11 Dose: 100 mg Famotidine (Pepcid) 40 mg PO HS [facility] Last Admin: 10/19/17 21:36 Dose: 40 mg Folic Acid (Folic Acid) 1 mg PO DAILY [facility] Last Admin: 10/20/17 09:11 Dose: 1 mg Gabapentin (Neurontin) 600 mg PO HS [facility] PRN Reason: Protocol Last Admin: 10/19/17 21:36 Dose: 600 mg Heparin Sodium (Porcine) (Heparin) 5,000 units SC Q8 [facility] PRN Reason: Protocol Last Admin: 10/20/17 05:36 Dose: 5,000 units Hydrocortisone (Anusol-Hc) 1 gm [facility] Q6H PRN PRN Reason: rectal pain Nafcillin Sodium 2 gm/ Sodium (Chloride) 100 mls @ 100 mls/hr IVPB Q6 [facility] PRN Reason: Protocol Stop: 11/16/17 18:01 Last Admin: 10/20/17 11:47 Dose: 100 mls/hr Ibuprofen (Motrin Tab) 600 mg PO Q6H PRN PRN Reason: Pain, Mild (1-3) Last Admin: 10/19/17 13:25 Dose: 600 mg Ketorolac Tromethamine (Toradol) 30 mg IVP Q12H PRN PRN Reason: Pain, severe (8-10) Stop: 10/21/17 11:06 Last Admin: 10/20/17 11:56 Dose: 30 mg Lorazepam (Ativan) 2 mg IVP Q4H PRN; Protocol PRN Reason: Symptoms of alcohol withdrawl Last Admin: 10/20/17 09:50 Dose: 2 mg Ondansetron HCl (Zofran Inj) 4 mg IVP Q4H PRN PRN Reason: Nausea/Vomiting Oxycodone/Acetaminophen (Percocet 10/325 Mg Tab) 1 tab PO Q4H PRN PRN Reason: Pain, severe (8-10) Last Admin: 10/20/17 09:42 Dose: 1 tab Polyethylene Glycol (Miralax) 17 gm PO DAILY [facility] Last Admin: 10/20/17 09:11 Dose: 17 gm Thiamine HCl (Vitamin B1 Tab) 100 mg PO DAILY [facility] Last Admin: 10/20/17 09:11 Dose: 100 mg Vitamin B Complex/Vit C/Folic Acid (Nephro-Meghan) 1 tab PO 0800 [facility] Last Admin: 10/20/17 09:06 Dose: 1 tab - Labs Labs: 10/20/17 08:36 10/20/17 08:36 PT 13.4 SECONDS (9.4-12.5) H 10/15/17 20:33 INR 1.17 (0.93-1.08) H 10/15/17 20:33 APTT 28.8 Seconds (25.1-36.5) 10/15/17 20:33 - Constitutional Appears: Non-toxic, No Acute Distress - Head Exam Head Exam: ATRAUMATIC, NORMOCEPHALIC - Eye Exam Eye Exam: EOMI, Normal appearance, PERRL - ENT Exam ENT Exam: Mucous Membranes Moist - Neck Exam Neck Exam: Normal Inspection - Respiratory Exam Respiratory Exam: Clear to Ausculation Bilateral, NORMAL BREATHING PATTERN - Cardiovascular Exam Cardiovascular Exam: RRR, +S1, +S2 - GI/Abdominal Exam GI & Abdominal Exam: Soft, Normal Bowel Sounds. absent: Tenderness - Extremities Exam Extremities Exam: absent: Calf Tenderness, Pedal Edema - Back Exam Additional comments: R SI joint tenderness - Neurological Exam Neurological Exam: Alert, Awake, Oriented x3 - Psychiatric Exam Psychiatric exam: Depressed, Normal Affect - Skin Skin Exam: Dry, Normal Color Assessment and Plan - Assessment and Plan (Free Text) Assessment: Patient is a 42 y/o Male with PMHx of homeless, endocarditis, chronic alcohol abuse, IVDA- cocaine and heroine presenting with substernal chest pain radiating to the back and lower back pain for 2 days. Patient tested positive for cocaine and heroine in the ED. CT chest revealed no PE, had [address] of L spine with DJD of L3-L4. MRI L spine shows mild degenerative changes; no discitis or epidural abscess. Plan: 1) Chest pain r/o ACS due to cocaine versus endocarditis. - Chest pain resolved, ACS ruled out - TTE unremarkable; no vegetations - Initial cultures show MSSA, in two bottles; repeat cultures negative x24 hours - Cardio on consult; signed off 2) Back pain - Patient has persistent back pain; CT shows DJD of L3-L4; MRI L-spine shows mild degenerative changes, no discitis or epidural abscess - Point tenderness over R SI joint with positive SLR; likely musculoskeletal in nature - Ordered MRI of sacrum to r/o sacroilitis in patient with history of IVDU - XR of b/l SI joints unremarkable - Continue motrin, toradol, gabapentin, flexeril - Continue percocet 5/325 PO Q4H PRN severe pain - Miralax and Colace to prevent constipation 3) Depression; suicidal ideation - Patient has endorsed to multiple providers in the hospital thoughts of hurting himself upon discharge; 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 engineer - 1:1 sitter for observation for suicidal ideation - Requested psych consult; appreciate recs 4) Polysubstance abuse, including alcohol - Withdrawal state improving - Continue ativan 2 q4 prn - Continue methadone taper; 10mg today - wa protocol - Thiamine, folic acid, and multi vitamin 5) Bacteremia - Leukocytosis resolved; afebrile - Initial blood cultures show MSSA, in two bottles; repeat cultures negative x24 hours - Switched to Nafcillin; per ID - ESR and CRP high; recheck after one week - ID on consult; appreciate recs 6) Elevated liver related markers - Improving; likely 2/2 polysubstance abuse 7) 6 mm Pulmonary nodule - Repeat CT in 6-12 months. DVT and GI prophylaxis: Pepcid for GI prophylaxis. Heparin for DVT prophylaxis. Patient seen, examined and case discussed with Dr. Silveira <Nallely Silveira - Last Filed: 10/27/17 21:36> Objective - Vital Signs/Intake and Output Vital Signs (last 24 hours): Temp Pulse Resp BP Pulse Ox 97.9 F 68 18 113/58 L 100 10/24/17 08:00 10/24/17 08:00 10/24/17 08:00 10/24/17 08:00 10/24/17 08:00 - Labs Labs: 10/23/17 07:20 10/23/17 07:20 PT 13.4 SECONDS (9.4-12.5) H 10/15/17 20:33 INR 1.17 (0.93-1.08) H 10/15/17 20:33 APTT 28.8 Seconds (25.1-36.5) 10/15/17 20:33 Attending/Attestation - Attestation I have personally seen and examined this patient.: Yes I have fully participated in the care of the patient.: Yes I have reviewed all pertinent clinical information, including history, physical exam and plan: Yes Notes (Text): I have seen and examined the patient at bedside. Agree with the above note with the following additions/ exceptions: Briefly this is 42 year old male with history of homelessness, endocarditis apparently [place] [facility] [place] alcohol abuse, IVDA (Cocaine and heroin) who was admitted for evaluation of chest pain, back pain and found to have sepsis from bacteremia with given history of endocarditis. Patient was on vancomycin and meropenem. Blood cultures are positive for MSSA. Today antibiotics were switched to nafcillin. TTE is negative for vegetation. MRI LS spine did not reveal any abscess. Continue 1:1 for anger issues and depression. Awaiting psych consult. Continue flexeril, gabapentin and percocet. Continue tapering doses of methadone. I have advised nurse to call sean [facility] if he decides to leave [facility]. Counselling provided regarding polysubstance abuse and alcohol cessation. He was also found to have 6 mm pulmonary nodule. Repeat CT scan recommended. HIV negative. Upon discharge patient will follow up in [facility] clinic. Dr Nallely Silveira
[2017-10-20] MEDS ORDERED: Oxycodone/Acetaminophen 5/325 mg Tab PO ONE (16:32)
--- NOTE | 2017-10-20 16:34 | MRI ---
PROCEDURE: MRI of the pelvis without contrast HISTORY: r/o Sacroilitis - Focus on R SI joint COMPARISON: TECHNIQUE: MRI of the pelvis was performed without IV contrast with special attention to the sacrum and sacroiliac joints FINDINGS: There is a large amount of marrow edema in the right sacral ala. There is no evidence of a distinct fracture line. Findings are most consistent with a compression fracture or bone bruise. There is a mild amount of marrow edema in the adjacent iliac bone. There is some fluid in the sacroiliac joint. The findings are best appreciated on series 10 in the coronal plane. There is also some edema within the right iliacus muscle IMPRESSION: Marrow edema in the right sacral ala and adjacent iliac bone with fluid in the sacroiliac joint. There is also edema in the adjacent iliacus muscle. Findings are most consistent with recent trauma. Clinical correlation is suggested.
--- NOTE | 2017-10-20 23:22 | PN ---
DATE: 10/20/2017 SUBJECTIVE: The patient is in bed, in no acute distress. PHYSICAL EXAMINATION: VITAL SIGNS: Temperature is 98, blood pressure is 110/60, respiratory rate of 20. HEENT: Unremarkable. NECK: Supple. LUNGS: Have decreased breath sounds. HEART: Normal S1 and S2. ABDOMEN: Soft, nontender. LABORATORY DATA: Reveals a white count of 9.2, hemoglobin of 10, platelets of 461. Chemistries reveal a BUN of 18, creatinine of 0.9. Procalcitonin is 0.15. The patient's sed rate is 94 and C-reactive protein is greater than 15. HIV is negative. Influenza is negative. The patient's vancomycin level of 21.7 from yesterday. The patient is now on nafcillin and the blood cultures are noted to be sensitive Staph aureus. The repeat blood cultures are negative. The patient also has a pelvic MRI. Narrow edema in the right sacral and adjacent iliac bone with fluid in the sacroiliac joint, most consistent with recent trauma, clinical correlation. ASSESSMENT AND PLAN: This is a 42-year-old male who was seen earlier this morning with Dr. Ivey who has sepsis with a sensitive Staphylococcus aureus bacteremia and sacroiliitis based on MRI findings, on nafcillin day #2 of 28 of 42 of antibiotics. We will need repeat CBC, SMA-18, sed rate, C-reactive protein. The patient's MRI of the sacroiliac joint is consistent with sacroiliitis as discussed with Dr. Ivey. We will need to prolong the antibiotics infection of the sacroiliac joint 4 to 6 weeks. Terry Penaloza MD
[2017-10-21] MEDS: Nafcillin 2 GM in Sodium Chloride 0.9% 100 ML IVPB SCH ×3 (05:49→18:29)
[2017-10-21] MEDS: Oxycodone/Acetaminophen 10/325 mg Tab PO PRN ×5 (05:58→22:35)
[2017-10-21 08:11] LABS: BASO # 0.06 K/mm3 (0.0-2.0); BASO % 0.7 % (0.0-3.0); EOS # 0.6 (0.0-0.7); EOS % 6.9 % (1.5-5.0); GRAN # 4.75 (1.4-6.5); GRAN % 57.5 % (50.0-68.0); HEMOGLOBIN 10.6 g/dL (14.0-18.0); LYMPH # 2.2 (1.2-3.4); MEAN CELL VOLUME 87.1 fl (80.0-105.0); MEAN CORPUSCULAR HGB CONC 32.1 g/dl (31.0-37.0); MEAN PLATELET VOLUME 8.6 fl (7.0-11.0); MONO # 0.7 (0.1-0.6); MONO % 8.9 % (1.0-6.0); RBC 3.79 10^6/uL (3.5-6.1); RED CELL DISTRIBUTION WIDTH 15.5 % (11.5-14.5); WHITE BLOOD COUNT 8.3 10^3/ul (4.5-11.0)
[2017-10-21 08:30] LABS: ALB/GLOB RATIO 0.8 (1.1-1.8); ALBUMIN 2.9 g/dL (3.0-4.8); ALT/SGPT 43 U/L (7-56); AST/SGOT 52 U/L (17-59); BLOOD UREA NITROGEN 18 mg/dL (7-21); GFR AFRICAN-AMERICAN > 60; GFR NON-AFRICAN AMERICAN > 60
[2017-10-21] MEDS: Multivitamin Vitamin B Complex (Nephro-Vite) Tab PO SCH (08:43)
--- NOTE | 2017-10-21 09:54 | CON ---
DATE: 10/20/2017 HISTORY OF PRESENT ILLNESS: The patient is a 42-year-old white male with history of severe opiate use disorder, who is currently being followed in medical floor (please refer to medical notes for complete medical history and issues). Psychiatry consult was called because apparently patient has stated about wanting to hurt himself while he was frustrated about being unable to find an adapter for his cellphone. . The patient had vocalized this statement on 10/18/2017, apparently in the evening. Patient has been restless, irritable in the unit, at times requesting to leave but at the same time reporting that he would cooperate with medical team. I met with the patient at bedside. Patient is alert and oriented x3. He is well aware of current month, year, about patient's circumstances. He engages in an interview with me though he does not appear to grasp about having to mental health evaluation. Regarding suicidal thoughts, he indicates that "this is ridiculous. I am not suicidal." Patient also indicates that "this is not accurate. I am frustrated. I just want to get my stuff from the [facility] and it is driving me nuts." Also, he states he is frustrated about his phone, but does not recall ever making any suicidal statements. Patient reports that he is experiencing stressors. He is a heroin addict for the last 10 years. He is homeless and he has been staying at his friend's house and also recently some of his items that were supposed to be stored at a [facility] were thrown out by the endoscopy specialty technician. Patient indicates that he has not stressors, he has never been suicidal and is reluctant to admit that he is depressed. He does report that he is hopeful about things improving in his life, wants to improve his medical status as well. He does not have any thoughts of harming the endoscopy specialty technician, does not know why the endoscopy specialty technician threw out some of his items. This is the endoscopy specialty technician who helped store some of his personal belongings after he was kicked out of his apartment about a year or two ago. Patient is oriented and reports that he plans to get the rest of his items from the [facility] once he is discharged as he states that the endoscopy specialty technician will throw out the rest of his items. Patient is guarded. He is coherent, responding to my questioning with relevant responses and consistency. Affect is constricted and tired. medical status and his opiate withdrawal. Patient again specifically reports that he does not psychiatric consultation was requested and indicated that "just sent in." Patient is not hallucinating, not delusional. Insight and judgement appears to be fair. Thus far, he has been in fair control in the unit and plans to cooperate with staff regarding his medical care and there was no agitation overnight, he slept well. PSYCHIATRIC HISTORY: Patient reportedly denies psychiatric admissions, denies any history of suicide attempts. He did see a therapist a few years ago does not recall the name or psychiatric medications that the therapist the time. He is not in current psychiatric care. SOCIAL HISTORY: The patient was born and raised in [place]. He is . He has no children. He is unemployed. He has been homeless for the past year since he was kicked out of his apartment. Most of his belongings are being stored at a [facility] by a endoscopy specialty technician. Currently, he sleeps at a friend's home in closed backyard. Patient denies any alcohol history; however, he does have history of using IV heroin for about 10 years and uses about a couple of bags daily. Patient also uses cocaine on and off for the last 10 years. PHYSICAL EXAMINATION: VITAL SIGNS: At 7:30 this morning were 98.7, 77, 110/69, and 20. LABORATORY DATA: Lab work was reviewed by this provider. MEDICATIONS: Relevant psychiatric medications include Ativan 2 mg IV q.4 p.r.n. for symptoms of alcohol withdrawal. IMPRESSION: Opiate use disorder, severe; opiate withdrawal. Of note, patient denied any alcohol use; however, indicated to prior providers that he is a heavy drinker and his last alcohol use was approximately 2 days prior to his presentation on 10/16/2017. One has to consider alcohol use disorder, severe, as well in his differential. Also, indicates substance abuse, mood disorder, rule out major depression. RECOMMENDATIONS: 1. Medical team continue to treat patient for alcohol withdrawal, taper as he is able to tolerate. 2. One to one group should be discontinued as patient denies having any suicidal thoughts. Patient does present as guarded, besides he has consistently denied having any suicidal thoughts and indicated that he does not recall making suicidal statements; however, he does indicate that he has been frustrated and may have been venting at that time. Psychiatry will continue to follow up with him one more times to ensure his stability tomorrow. Other than that, he does not appears to be an acute psychiatric danger to himself or others at this very time. Omaira Rob MD
[2017-10-21] MEDS: POLYETHYLENE GLYCOL 3350 17 GM/Dose PACKET PO SCH (10:08)
--- NOTE | 2017-10-21 14:02 | CP.PCM.PN ---
Subjective - Date & Time of Evaluation Date of Evaluation: 10/21/17 Time of Evaluation: 12:55 - Subjective Subjective: No fevers, not in distress. Objective - Vital Signs/Intake and Output Vital Signs (last 24 hours): Temp Pulse Resp BP Pulse Ox 98.1 F 63 18 127/63 98 10/21/17 07:30 10/21/17 07:30 10/21/17 07:30 10/21/17 07:30 10/21/17 07:30 Intake and Output: 10/21/17 10/21/17 06:59 18:59 Intake Total 1620 Balance 1620 - Medications Medications: Current Medications Acetaminophen (Tylenol 325mg Tab) 650 mg PO Q6H PRN PRN Reason: Fever >100.4 F Last Admin: 10/19/17 17:27 Dose: 650 mg Cyclobenzaprine HCl (Flexeril) 5 mg PO TID [facility] Last Admin: 10/21/17 10:07 Dose: 5 mg Docusate Sodium (Colace) 100 mg PO BID [facility] Last Admin: 10/21/17 10:07 Dose: 100 mg Famotidine (Pepcid) 40 mg PO HS [facility] Last Admin: 10/20/17 21:09 Dose: 40 mg Folic Acid (Folic Acid) 1 mg PO DAILY [facility] Last Admin: 10/21/17 10:07 Dose: 1 mg Gabapentin (Neurontin) 600 mg PO [facility] PRN Reason: Protocol Last Admin: 10/20/17 21:10 Dose: 600 mg Heparin Sodium (Porcine) (Heparin) 5,000 units SC Q8 [facility] PRN Reason: Protocol Last Admin: 10/21/17 05:45 Dose: 5,000 units Hydrocortisone (Anusol-Hc) 1 gm IN Q6H PRN PRN Reason: rectal pain Nafcillin Sodium 2 gm/ Sodium (Chloride) 100 mls @ 100 mls/hr IVPB Q6 [facility] PRN Reason: Protocol Stop: 11/16/17 18:01 Last Admin: 10/21/17 05:49 Dose: 100 mls/hr Ibuprofen (Motrin Tab) 600 mg PO Q6H PRN PRN Reason: Pain, Mild (1-3) Last Admin: 10/19/17 13:25 Dose: 600 mg Ketorolac Tromethamine (Toradol) 30 mg IVP Q12H PRN PRN Reason: Pain, severe (8-10) Stop: 10/21/17 11:06 Last Admin: 10/21/17 08:58 Dose: 30 mg Lorazepam (Ativan) 2 mg IVP Q4H PRN; Protocol PRN Reason: Symptoms of alcohol withdrawl Last Admin: 10/21/17 08:56 Dose: 2 mg Nicotine (Nicoderm Cq) 1 patch TD DAILY [facility] Last Admin: 10/21/17 10:08 Dose: 1 patch Ondansetron HCl (Zofran Inj) 4 mg IVP Q4H PRN PRN Reason: Nausea/Vomiting Oxycodone/Acetaminophen (Percocet 10/325 Mg Tab) 1 tab PO Q4H PRN PRN Reason: Pain, severe (8-10) Last Admin: 10/21/17 10:07 Dose: 1 tab Polyethylene Glycol (Miralax) 17 gm PO DAILY [facility] Last Admin: 10/21/17 10:08 Dose: 17 gm Thiamine HCl (Vitamin B1 Tab) 100 mg PO DAILY [facility] Last Admin: 10/21/17 10:07 Dose: 100 mg Vitamin B Complex/Vit C/Folic Acid (Nephro-Meghan) 1 tab PO 0800 [facility] Last Admin: 10/21/17 08:43 Dose: 1 tab - Labs Labs: 10/21/17 07:45 10/21/17 07:45 PT 13.4 SECONDS (9.4-12.5) H 10/15/17 20:33 INR 1.17 (0.93-1.08) H 10/15/17 20:33 APTT 28.8 Seconds (25.1-36.5) 10/15/17 20:33 - Constitutional Appears: Chronically Ill - Head Exam Head Exam: NORMAL INSPECTION - Respiratory Exam Respiratory Exam: Decreased Breath Sounds - Cardiovascular Exam Cardiovascular Exam: +S1, +S2 - GI/Abdominal Exam GI & Abdominal Exam: Soft. absent: Tenderness Assessment and Plan - Assessment and Plan (Free Text) Plan: Assessment sepsis from methicillin-sensitive Staph aureus bacteremia with sacroiliitis in this patient with history of endocarditis - need to rule out endocarditis with this IV drug user homelessness history of endocarditis apparently treated in [facility] [place] in June 2017 IVDA with cocaine and heroin Plan repeat blood cx are negative; continue Nafcillin and should complete at least 4- 6 weeks with weekly ESR, CRP, CBC, CMP; should get DANIEL when feasiblewill continue to monitor clinically HIV test is negative
--- NOTE | 2017-10-21 16:57 | CP.PCM.PN ---
<Maureen He - Last Filed: 10/21/17 16:54> Subjective - Date & Time of Evaluation Date of Evaluation: 10/21/17 Time of Evaluation: 07:30 - Subjective Subjective: Maureen He DO PGY1 - IM Progress Note Patient seen and examined at bedside. No acute events overnight. Patient was also observed ambulating around his room, much more easily and comfortably than yesterday. He continues to complain of right sided low back pain, but significant improved since admission. He denies any chest pain, shortness of breath, abdominal pain, nausea, vomiting, diarrhea, constipation. He again denies suicidal or homicidal ideation. Objective - Vital Signs/Intake and Output Vital Signs (last 24 hours): Temp Pulse Resp BP Pulse Ox 98.1 F 63 18 127/63 98 10/21/17 07:30 10/21/17 07:30 10/21/17 07:30 10/21/17 07:30 10/21/17 07:30 Intake and Output: 10/21/17 10/21/17 06:59 18:59 Intake Total 1620 Balance 1620 - Medications Medications: Current Medications Acetaminophen (Tylenol 325mg Tab) 650 mg PO Q6H PRN PRN Reason: Fever >100.4 F Last Admin: 10/19/17 17:27 Dose: 650 mg Cyclobenzaprine HCl (Flexeril) 5 mg PO TID [facility] Last Admin: 10/21/17 14:11 Dose: 5 mg Docusate Sodium (Colace) 100 mg PO BID [facility] Last Admin: 10/21/17 10:07 Dose: 100 mg Famotidine (Pepcid) 40 mg PO HS [facility] Last Admin: 10/20/17 21:09 Dose: 40 mg Folic Acid (Folic Acid) 1 mg PO DAILY [facility] Last Admin: 10/21/17 10:07 Dose: 1 mg Gabapentin (Neurontin) 600 mg PO HS [facility] PRN Reason: Protocol Last Admin: 10/20/17 21:10 Dose: 600 mg Heparin Sodium (Porcine) (Heparin) 5,000 units SC Q8 [facility] PRN Reason: Protocol Last Admin: 10/21/17 14:11 Dose: 5,000 units Hydrocortisone (Anusol-Hc) 1 gm OR Q6H PRN PRN Reason: rectal pain Nafcillin Sodium 2 gm/ Sodium (Chloride) 100 mls @ 100 mls/hr IVPB Q6 [facility] PRN Reason: Protocol Stop: 11/16/17 18:01 Last Admin: 10/21/17 12:40 Dose: 100 mls/hr Ibuprofen (Motrin Tab) 400 mg PO Q6H PRN PRN Reason: Pain, Mild (1-3) Lorazepam (Ativan) 1 mg PO TID [facility] PRN Reason: Protocol Last Admin: 10/21/17 14:17 Dose: Not Given Lorazepam (Ativan) 2 mg IVP Q6H PRN; Protocol PRN Reason: Symptoms of alcohol withdrawl Nicotine (Nicoderm Cq) 1 patch TD DAILY [facility] Last Admin: 10/21/17 10:08 Dose: 1 patch Ondansetron HCl (Zofran Inj) 4 mg IVP Q4H PRN PRN Reason: Nausea/Vomiting Oxycodone/Acetaminophen (Percocet 10/325 Mg Tab) 1 tab PO Q4H PRN PRN Reason: Pain, severe (8-10) Last Admin: 10/21/17 14:21 Dose: 1 tab Polyethylene Glycol (Miralax) 17 gm PO DAILY [facility] Last Admin: 10/21/17 10:08 Dose: 17 gm Quetiapine Fumarate (Seroquel) 25 mg PO HS [facility] PRN Reason: Protocol Thiamine HCl (Vitamin B1 Tab) 100 mg PO DAILY [facility] Last Admin: 10/21/17 10:07 Dose: 100 mg Vitamin B Complex/Vit C/Folic Acid (Nephro-Meghan) 1 tab PO 0800 [facility] Last Admin: 10/21/17 08:43 Dose: 1 tab Ziprasidone (Geodon Inj) 10 mg IM Q6H PRN; Protocol PRN Reason: Agitation - Labs Labs: 10/21/17 07:45 10/21/17 07:45 PT 13.4 SECONDS (9.4-12.5) H 10/15/17 20:33 INR 1.17 (0.93-1.08) H 10/15/17 20:33 APTT 28.8 Seconds (25.1-36.5) 10/15/17 20:33 - Constitutional Appears: Non-toxic, No Acute Distress - Head Exam Head Exam: ATRAUMATIC, NORMOCEPHALIC - Eye Exam Eye Exam: EOMI, Normal appearance, PERRL - ENT Exam ENT Exam: Mucous Membranes Moist - Neck Exam Neck Exam: Normal Inspection - Respiratory Exam Respiratory Exam: Clear to Ausculation Bilateral, NORMAL BREATHING PATTERN - Cardiovascular Exam Cardiovascular Exam: RRR, +S1, +S2 - GI/Abdominal Exam GI & Abdominal Exam: Soft, Normal Bowel Sounds. absent: Tenderness - Extremities Exam Extremities Exam: absent: Calf Tenderness, Pedal Edema - Neurological Exam Neurological Exam: Alert, Awake, Oriented x3 - Psychiatric Exam Psychiatric exam: Normal Affect, Normal Mood - Skin Skin Exam: Dry, Normal Color Assessment and Plan - Assessment and Plan (Free Text) Assessment: Patient is a 42 y/o Male with PMHx of homeless, endocarditis, chronic alcohol abuse, IVDA- cocaine and heroine presenting with substernal chest pain radiating to the back and lower back pain for 2 days. Patient tested positive for cocaine and heroine in the ED. CT chest revealed no PE, had [address] of L spine with DJD of L3-L4. MRI L spine shows mild degenerative changes; no discitis or epidural abscess. Plan: 1) Chest pain r/o ACS due to cocaine versus endocarditis. - Chest pain resolved, ACS ruled out - TTE unremarkable; no vegetations - Initial cultures show MSSA, in two bottles; repeat cultures negative x3 days, second repeat also negative x48 hours - Per ID, patient will require DANIEL to r/o vegetation - Cardio on consult; signed off 2) Back pain 2/2 septic sacroiliitis - Patient has persistent back pain; CT shows DJD of L3-L4; MRI L-spine shows mild degenerative changes, no discitis or epidural abscess - MRI of sacrum significant for marrow edema in R sacrum; consistent with septic sacroilitis - Continue motrin, toradol, gabapentin, flexeril - Continue percocet 10/325 PO Q4H PRN severe pain - Miralax and Colace to prevent constipation 3) Depression; suicidal ideation - Patient has endorsed to multiple providers in the hospital thoughts of hurting himself upon discharge; 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 - Currently denies SI/HI - 1:1 sitter for observation for suicidal ideation - Requested psych consult; appreciate recs 4) Polysubstance abuse, including alcohol - Withdrawal state improving - Continue ativan 2mg IV, decreased to q6 prn - Continue methadone taper; 5mg today - Thiamine, folic acid, and multi vitamin 5) Bacteremia - Initial blood cultures show MSSA, in two bottles; repeat cultures negative x3 days, second repeat also negative x48 hours - Continue Nafcillin; patient will require 6 week course; per ID - ESR and CRP high; recheck after one week - ID on consult; appreciate recs 6) Elevated liver related markers - Resolved 7) 6 mm Pulmonary nodule - Repeat CT in 6-12 months. DVT and GI prophylaxis: Pepcid for GI prophylaxis. Heparin for DVT prophylaxis. Patient seen, examined and case discussed with Dr. Kingsley <Leonardo Kingsley - Last Filed: 10/21/17 17:14> Objective - Vital Signs/Intake and Output Vital Signs (last 24 hours): Temp Pulse Resp BP Pulse Ox 98.1 F 63 18 127/63 98 10/21/17 07:30 10/21/17 07:30 10/21/17 07:30 10/21/17 07:30 10/21/17 07:30 Intake and Output: 10/21/17 10/21/17 06:59 18:59 Intake Total 1620 Balance 1620 - Medications Medications: Current Medications Acetaminophen (Tylenol 325mg Tab) 650 mg PO Q6H PRN PRN Reason: Fever >100.4 F Last Admin: 10/19/17 17:27 Dose: 650 mg Cyclobenzaprine HCl (Flexeril) 5 mg PO TID [facility] Last Admin: 10/21/17 14:11 Dose: 5 mg Docusate Sodium (Colace) 100 mg PO BID [facility] Last Admin: 10/21/17 10:07 Dose: 100 mg Famotidine (Pepcid) 40 mg PO HS [facility] Last Admin: 10/20/17 21:09 Dose: 40 mg Folic Acid (Folic Acid) 1 mg PO DAILY [facility] Last Admin: 10/21/17 10:07 Dose: 1 mg Gabapentin (Neurontin) 600 mg PO HS [facility] PRN Reason: Protocol Last Admin: 10/20/17 21:10 Dose: 600 mg Heparin Sodium (Porcine) (Heparin) 5,000 units SC Q8 [facility] PRN Reason: Protocol Last Admin: 10/21/17 14:11 Dose: 5,000 units Hydrocortisone (Anusol-Hc) 1 gm OR Q6H PRN PRN Reason: rectal pain Nafcillin Sodium 2 gm/ Sodium (Chloride) 100 mls @ 100 mls/hr IVPB Q6 [facility] PRN Reason: Protocol Stop: 11/16/17 18:01 Last Admin: 10/21/17 12:40 Dose: 100 mls/hr Ibuprofen (Motrin Tab) 400 mg PO Q6H PRN PRN Reason: Pain, Mild (1-3) Lorazepam (Ativan) 1 mg PO TID [facility] PRN Reason: Protocol Last Admin: 10/21/17 14:17 Dose: Not Given Lorazepam (Ativan) 2 mg IVP Q6H PRN; Protocol PRN Reason: Symptoms of alcohol withdrawl Nicotine (Nicoderm Cq) 1 patch TD DAILY [facility] Last Admin: 10/21/17 10:08 Dose: 1 patch Ondansetron HCl (Zofran Inj) 4 mg IVP Q4H PRN PRN Reason: Nausea/Vomiting Oxycodone/Acetaminophen (Percocet 10/325 Mg Tab) 1 tab PO Q4H PRN PRN Reason: Pain, severe (8-10) Last Admin: 10/21/17 14:21 Dose: 1 tab Polyethylene Glycol (Miralax) 17 gm PO DAILY [facility] Last Admin: 10/21/17 10:08 Dose: 17 gm Quetiapine Fumarate (Seroquel) 25 mg PO HS [facility] PRN Reason: Protocol Thiamine HCl (Vitamin B1 Tab) 100 mg PO DAILY [facility] Last Admin: 10/21/17 10:07 Dose: 100 mg Vitamin B Complex/Vit C/Folic Acid (Nephro-Meghan) 1 tab PO 0800 [facility] Last Admin: 10/21/17 08:43 Dose: 1 tab Ziprasidone (Geodon Inj) 10 mg IM Q6H PRN; Protocol PRN Reason: Agitation - Labs Labs: 10/21/17 07:45 10/21/17 07:45 PT 13.4 SECONDS (9.4-12.5) H 10/15/17 20:33 INR 1.17 (0.93-1.08) H 10/15/17 20:33 APTT 28.8 Seconds (25.1-36.5) 10/15/17 20:33 Attending/Attestation - Attestation I have personally seen and examined this patient.: Yes I have fully participated in the care of the patient.: Yes I have reviewed all pertinent clinical information, including history, physical exam and plan: Yes Notes (Text): 10/21/17 17:10 Attending note; Patient seen and examined with the resident. Patient is a 42 year old male with history of homelessness, IVDA, endocarditis apparently completed treatment at [facility], chronic alcohol abuse, IVDA (Cocaine and heroin) who was admitted for evaluation of chest pain, back pain. Blood cultures are positive for MSSA. Currently started on IV nafcillin. TTE is negative for vegetation. MRI LS spine did not reveal any abscess. MRI of the pelvis showed marrow edema of right sacral ala. Case discussed with ID in detail. Patient needs to complete 6 weeks of IV antibiotics therapy. Anxiety depression ; currently denies suicidal ideation .continue one-to-one for safety .case discussed with psychiatrist in detail . Continue flexeril, gabapentin and Seroquel. Heroine abuse; Continue tapering doses of methadone. Counselling provided regarding polysubstance abuse and alcohol cessation. Case discussed with social service liaison for discharge planning. HIV negative. Upon discharge patient will follow up in [facility] [place]
[2017-10-22] MEDS: Nafcillin 2 GM in Sodium Chloride 0.9% 100 ML IVPB SCH ×5 (00:48→21:42)
[2017-10-22] MEDS: Oxycodone/Acetaminophen 10/325 mg Tab PO PRN ×3 (06:53→21:57)
[2017-10-22 07:12] LABS: BASO # 0.07 K/mm3 (0.0-2.0); BASO % 0.9 % (0.0-3.0); EOS # 0.6 (0.0-0.7); EOS % 7.1 % (1.5-5.0); GRAN # 4.65 (1.4-6.5); GRAN % 56.6 % (50.0-68.0); HEMOGLOBIN 10.8 g/dL (14.0-18.0); LYMPH % 23.8 % (22.0-35.0); MEAN CELL VOLUME 88.2 fl (80.0-105.0); MEAN CORPUSCULAR HEMOGLOBIN 27.7 pg (25.0-35.0); MEAN CORPUSCULAR HGB CONC 31.4 g/dl (31.0-37.0); MEAN PLATELET VOLUME 8.4 fl (7.0-11.0); MONO % 11.6 % (1.0-6.0); RBC 3.9 10^6/uL (3.5-6.1); RED CELL DISTRIBUTION WIDTH 15.9 % (11.5-14.5); WHITE BLOOD COUNT 8.2 10^3/ul (4.5-11.0)
[2017-10-22 08:00] LABS: ALB/GLOB RATIO 0.8 (1.1-1.8); ALBUMIN 3.1 g/dL (3.0-4.8); ALT/SGPT 50 U/L (7-56); AST/SGOT 70 U/L (17-59); BLOOD UREA NITROGEN 18 mg/dL (7-21); CALCIUM 9.1 mg/dL (8.4-10.5); GFR AFRICAN-AMERICAN > 60; GFR NON-AFRICAN AMERICAN > 60
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
[2017-10-22] MEDS ORDERED: Morphine 2 mg/ml ISec IVP ONE (10:51)
[2017-10-22] MEDS: POLYETHYLENE GLYCOL 3350 17 GM/Dose PACKET PO SCH (11:32)
[2017-10-22] MEDS: Multivitamin Vitamin B Complex (Nephro-Vite) Tab PO SCH (11:32)
--- NOTE | 2017-10-22 13:25 | CP.PCM.PN ---
<Maureen He - Last Filed: 10/22/17 13:27> Subjective - Date & Time of Evaluation Date of Evaluation: 10/22/17 Time of Evaluation: 07:30 - Subjective Subjective: Maureen He DO PGY1 - IM Progress Note Patient seen and examined at bedside. Patient reportedly fell and hit his back on the armrest of a chair in his room early last night. He continues to complain of right sided low back pain, slightly worse after the fall. He denies any chest pain, shortness of breath, abdominal pain, nausea, vomiting, diarrhea , constipation. He again denies suicidal or homicidal ideation. He was again observed during the encounter with the psychiatrist, and again with the attending physician. Patient's mood, attitude, and recall was different during each encounter. Initially, he did recall and understand his medical condition, including regarding the septic arthritis, but when seen just a few hours later, patient caimed he does not recall or understand anything about the infectious process. Objective - Vital Signs/Intake and Output Vital Signs (last 24 hours): Temp Pulse Resp BP Pulse Ox 98.0 F 98 H 16 112/71 100 10/22/17 12:00 10/22/17 12:00 10/22/17 12:00 10/22/17 12:00 10/21/17 16:00 - Medications Medications: Current Medications Acetaminophen (Tylenol 325mg Tab) 650 mg PO Q6H PRN PRN Reason: Fever >100.4 F Last Admin: 10/19/17 17:27 Dose: 650 mg Cyclobenzaprine HCl (Flexeril) 5 mg PO TID [facility] Last Admin: 10/22/17 11:32 Dose: 5 mg Docusate Sodium (Colace) 100 mg PO BID [facility] Last Admin: 10/22/17 11:33 Dose: 100 mg Famotidine (Pepcid) 40 mg PO HS [facility] Last Admin: 10/21/17 21:25 Dose: 40 mg Folic Acid (Folic Acid) 1 mg PO DAILY [facility] Last Admin: 10/22/17 11:33 Dose: 1 mg Gabapentin (Neurontin) 600 mg PO HS [facility] PRN Reason: Protocol Last Admin: 10/21/17 21:25 Dose: 600 mg Heparin Sodium (Porcine) (Heparin) 5,000 units SC Q8 [facility] PRN Reason: Protocol Last Admin: 10/22/17 06:34 Dose: 5,000 units Hydrocortisone (Anusol-Hc) 1 gm IN Q6H PRN PRN Reason: rectal pain Nafcillin Sodium 2 gm/ Sodium (Chloride) 100 mls @ 100 mls/hr IVPB Q4 [facility] PRN Reason: Protocol Stop: 11/19/17 12:01 Last Admin: 10/22/17 11:48 Dose: 100 mls/hr Ibuprofen (Motrin Tab) 400 mg PO Q6H PRN PRN Reason: Pain, Mild (1-3) Lorazepam (Ativan) 1 mg PO TID [facility] PRN Reason: Protocol Last Admin: 10/22/17 11:33 Dose: 1 mg Lorazepam (Ativan) 2 mg IVP Q6H PRN; Protocol PRN Reason: Symptoms of alcohol withdrawl Last Admin: 10/22/17 06:53 Dose: 2 mg Nicotine (Nicoderm Cq) 1 patch TD DAILY [facility] Last Admin: 10/22/17 11:32 Dose: 1 patch Ondansetron HCl (Zofran Inj) 4 mg IVP Q4H PRN PRN Reason: Nausea/Vomiting Oxycodone/Acetaminophen (Percocet 10/325 Mg Tab) 1 tab PO Q4H PRN PRN Reason: Pain, severe (8-10) Last Admin: 10/22/17 06:53 Dose: 1 tab Polyethylene Glycol (Miralax) 17 gm PO DAILY [facility] Last Admin: 10/22/17 11:32 Dose: 17 gm Quetiapine Fumarate (Seroquel) 50 mg PO HS [facility] PRN Reason: Protocol Thiamine HCl (Vitamin B1 Tab) 100 mg PO DAILY [facility] Last Admin: 10/22/17 11:33 Dose: 100 mg Vitamin B Complex/Vit C/Folic Acid (Nephro-Meghan) 1 tab PO 0800 [facility] Last Admin: 10/22/17 11:32 Dose: 1 tab Ziprasidone (Geodon Inj) 10 mg IM Q6H PRN; Protocol PRN Reason: Agitation - Labs Labs: 10/22/17 06:30 10/22/17 06:30 PT 13.4 SECONDS (9.4-12.5) H 10/15/17 20:33 INR 1.17 (0.93-1.08) H 10/15/17 20:33 APTT 28.8 Seconds (25.1-36.5) 10/15/17 20:33 - Additional Findings Additional findings: - Constitutional Appears: Non-toxic, No Acute Distress, confused - Head Exam Head Exam: ATRAUMATIC, NORMOCEPHALIC - Eye Exam Eye Exam: EOMI, Normal appearance, PERRL - ENT Exam ENT Exam: Mucous Membranes Moist - Neck Exam Neck Exam: Normal Inspection - Respiratory Exam Respiratory Exam: Clear to Ausculation Bilateral, NORMAL BREATHING PATTERN - Cardiovascular Exam Cardiovascular Exam: RRR, +S1, +S2 - GI/Abdominal Exam GI & Abdominal Exam: Soft, Normal Bowel Sounds. absent: Tenderness - Extremities Exam Extremities Exam: absent: Calf Tenderness, Pedal Edema - Back Exam Back Exam: Point tenderness over R SI joint, appears less than on prior exams. No swelling, ecchymosis, or abrasion - Neurological Exam Neurological Exam: Alert, Awake, Oriented x3 - Psychiatric Exam Psychiatric exam: Normal Affect, Normal Mood - Skin Skin Exam: Dry, Normal Color Assessment and Plan - Assessment and Plan (Free Text) Assessment: Patient is a 42 y/o Male with PMHx of homeless, endocarditis, chronic alcohol abuse, IVDA- cocaine and heroine presenting with substernal chest pain radiating to the back and lower back pain for 2 days. Patient tested positive for cocaine and heroine in the ED. CT chest revealed no PE, had [address] of L spine with DJD of L3-L4. MRI L spine shows mild degenerative changes; no discitis or epidural abscess. MRI of sacrum significant for marrow edema in R sacrum; consistent with septic sacroilitis Plan: 1) Chest pain r/o ACS due to cocaine versus endocarditis. - Chest pain resolved, ACS ruled out - TTE unremarkable; no vegetations - Initial cultures show MSSA, in two bottles; repeat cultures negative x3 days, second repeat also negative x48 hours - Per ID, recommend DANIEL to r/o vegetation - Cardio on consult; signed off 2) Back pain 2/2 septic sacroiliitis - MRI of sacrum significant for marrow edema in R sacrum; consistent with septic sacroilitis - Continue motrin, toradol, gabapentin, flexeril - Continue percocet 10/325 PO Q4H PRN severe pain - Miralax and Colace to prevent constipation 3) Depression; suicidal ideation - Patient has endorsed to multiple providers in the hospital thoughts of hurting himself upon discharge; 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 - Currently denies SI/HI - 1:1 sitter for observation for suicidal ideation - Started Ativan 1mg PO TID, Seroquel 50mg PO HS, and Geodon 10mg Q6H PRN - Requested psych consult; appreciate recs 4) Polysubstance abuse, including alcohol - Withdrawal state improving - Continue ativan 2mg IV q6 prn - Thiamine, folic acid, and multi vitamin 5) Bacteremia - Initial blood cultures show MSSA, in two bottles; repeat cultures negative x4 days, second repeat also negative x3 hours - Continue Nafcillin; patient will require 6 week course; per ID - ESR and CRP high; recheck after one week - ID on consult; appreciate recs 6) 6 mm Pulmonary nodule - Repeat CT in 6-12 months. DVT and GI prophylaxis: Pepcid for GI prophylaxis. Heparin for DVT prophylaxis. Patient seen, examined and case discussed with Dr. Kingsley <Leonardo Kingsley - Last Filed: 10/22/17 15:38> Objective - Vital Signs/Intake and Output Vital Signs (last 24 hours): Temp Pulse Resp BP Pulse Ox 98.0 F 98 H 16 112/71 100 10/22/17 12:00 10/22/17 12:00 10/22/17 12:00 10/22/17 12:00 10/21/17 16:00 - Medications Medications: Current Medications Acetaminophen (Tylenol 325mg Tab) 650 mg PO Q6H PRN PRN Reason: Fever >100.4 F Last Admin: 10/19/17 17:27 Dose: 650 mg Cyclobenzaprine HCl (Flexeril) 5 mg PO TID [facility] Last Admin: 10/22/17 14:48 Dose: 5 mg Docusate Sodium (Colace) 100 mg PO BID [facility] Last Admin: 10/22/17 11:33 Dose: 100 mg Famotidine (Pepcid) 40 mg PO HS [facility] Last Admin: 10/21/17 21:25 Dose: 40 mg Folic Acid (Folic Acid) 1 mg PO DAILY [facility] Last Admin: 10/22/17 11:33 Dose: 1 mg Gabapentin (Neurontin) 600 mg PO HS [facility] PRN Reason: Protocol Last Admin: 10/21/17 21:25 Dose: 600 mg Heparin Sodium (Porcine) (Heparin) 5,000 units SC Q8 [facility] PRN Reason: Protocol Last Admin: 10/22/17 14:48 Dose: 5,000 units Hydrocortisone (Anusol-Hc) 1 gm IN Q6H PRN PRN Reason: rectal pain Nafcillin Sodium 2 gm/ Sodium (Chloride) 100 mls @ 100 mls/hr IVPB Q4 [facility] PRN Reason: Protocol Stop: 11/19/17 12:01 Last Admin: 10/22/17 11:48 Dose: 100 mls/hr Ibuprofen (Motrin Tab) 400 mg PO Q6H PRN PRN Reason: Pain, Mild (1-3) Lorazepam (Ativan) 1 mg PO TID [facility] PRN Reason: Protocol Last Admin: 10/22/17 14:48 Dose: 1 mg Lorazepam (Ativan) 2 mg IVP Q6H PRN; Protocol PRN Reason: Symptoms of alcohol withdrawl Last Admin: 10/22/17 06:53 Dose: 2 mg Nicotine (Nicoderm Cq) 1 patch TD DAILY [facility] Last Admin: 10/22/17 11:32 Dose: 1 patch Ondansetron HCl (Zofran Inj) 4 mg IVP Q4H PRN PRN Reason: Nausea/Vomiting Oxycodone/Acetaminophen (Percocet 10/325 Mg Tab) 1 tab PO Q4H PRN PRN Reason: Pain, severe (8-10) Last Admin: 10/22/17 06:53 Dose: 1 tab Polyethylene Glycol (Miralax) 17 gm PO DAILY [facility] Last Admin: 10/22/17 11:32 Dose: 17 gm Quetiapine Fumarate (Seroquel) 50 mg PO HS [facility] PRN Reason: Protocol Thiamine HCl (Vitamin B1 Tab) 100 mg PO DAILY [facility] Last Admin: 10/22/17 11:33 Dose: 100 mg Vitamin B Complex/Vit C/Folic Acid (Nephro-Meghan) 1 tab PO 0800 [facility] Last Admin: 10/22/17 11:32 Dose: 1 tab Ziprasidone (Geodon Inj) 10 mg IM Q6H PRN; Protocol PRN Reason: Agitation - Labs Labs: 10/22/17 06:30 10/22/17 06:30 PT 13.4 SECONDS (9.4-12.5) H 10/15/17 20:33 INR 1.17 (0.93-1.08) H 10/15/17 20:33 APTT 28.8 Seconds (25.1-36.5) 10/15/17 20:33 Attending/Attestation - Attestation I have personally seen and examined this patient.: Yes I have fully participated in the care of the patient.: Yes I have reviewed all pertinent clinical information, including history, physical exam and plan: Yes Notes (Text): Attending note; Patient seen and examined with the resident. Patient apparently hit his back last night. Denies any history of fall. Patient also wanted to sign AGAINST MEDICAL ADVICE last night. Currently on one-to-one observation. Patient is a 42 year old male with history of homelessness, IVDA, endocarditis apparently completed treatment at [facility] [place], chronic alcohol abuse was admitted for evaluation of chest pain, back pain/ nonspecific symptoms. Blood cultures are positive for MSSA. Currently started on IV nafcillin. TTE is negative for vegetation. MRI LS spine did not reveal any abscess. MRI of the pelvis showed marrow edema of right sacral ala. Case discussed with ID in detail. Patient needs to complete 6 weeks of IV antibiotics therapy. Anxiety depression ; currently denies suicidal ideation .continue one-to-one for safety .case discussed with psychiatrist in detail . Continue flexeril, gabapentin and Seroquel. medications will be adjusted by psychiatrist. Heroine abuse; Continue tapering doses of methadone. Counselling provided regarding polysubstance abuse and alcohol cessation. Case discussed with social services designee for discharge planning. patient might need subacute rehabilitation placement for long-term anti-biotics. Upon discharge patient will follow up in [facility] [place] clinic.
--- NOTE | 2017-10-22 17:17 | CP.PCM.PN ---
Subjective - Date & Time of Evaluation Date of Evaluation: 10/22/17 Time of Evaluation: 12:25 - Subjective Subjective: No fevers, not in distress. Objective - Vital Signs/Intake and Output Vital Signs (last 24 hours): Temp Pulse Resp BP Pulse Ox 97.9 F 91 H 20 113/76 100 10/21/17 16:00 10/21/17 16:00 10/21/17 16:00 10/21/17 16:00 10/21/17 16:00 - Medications Medications: Current Medications Acetaminophen (Tylenol 325mg Tab) 650 mg PO Q6H PRN PRN Reason: Fever >100.4 F Last Admin: 10/19/17 17:27 Dose: 650 mg Cyclobenzaprine HCl (Flexeril) 5 mg PO TID [facility] Last Admin: 10/21/17 18:27 Dose: 5 mg Docusate Sodium (Colace) 100 mg PO BID [facility] Last Admin: 10/21/17 18:27 Dose: 100 mg Famotidine (Pepcid) 40 mg PO HS [facility] Last Admin: 10/21/17 21:25 Dose: 40 mg Folic Acid (Folic Acid) 1 mg PO DAILY [facility] Last Admin: 10/21/17 10:07 Dose: 1 mg Gabapentin (Neurontin) 600 mg PO HS [facility] PRN Reason: Protocol Last Admin: 10/21/17 21:25 Dose: 600 mg Heparin Sodium (Porcine) (Heparin) 5,000 units SC Q8 [facility] PRN Reason: Protocol Last Admin: 10/22/17 06:34 Dose: 5,000 units Hydrocortisone (Anusol-Hc) 1 gm MD Q6H PRN PRN Reason: rectal pain Ibuprofen (Motrin Tab) 400 mg PO Q6H PRN PRN Reason: Pain, Mild (1-3) Lorazepam (Ativan) 1 mg PO TID [facility] PRN Reason: Protocol Last Admin: 10/21/17 18:26 Dose: 1 mg Lorazepam (Ativan) 2 mg IVP Q6H PRN; Protocol PRN Reason: Symptoms of alcohol withdrawl Last Admin: 10/22/17 06:53 Dose: 2 mg Nicotine (Nicoderm Cq) 1 patch TD DAILY [facility] Last Admin: 10/21/17 10:08 Dose: 1 patch Ondansetron HCl (Zofran Inj) 4 mg IVP Q4H PRN PRN Reason: Nausea/Vomiting Oxycodone/Acetaminophen (Percocet 10/325 Mg Tab) 1 tab PO Q4H PRN PRN Reason: Pain, severe (8-10) Last Admin: 10/22/17 06:53 Dose: 1 tab Polyethylene Glycol (Miralax) 17 gm PO DAILY [facility] Last Admin: 10/21/17 10:08 Dose: 17 gm Quetiapine Fumarate (Seroquel) 25 mg PO HS [facility] PRN Reason: Protocol Last Admin: 10/21/17 21:25 Dose: 25 mg Thiamine HCl (Vitamin B1 Tab) 100 mg PO DAILY [facility] Last Admin: 10/21/17 10:07 Dose: 100 mg Vitamin B Complex/Vit C/Folic Acid (Nephro-Meghan) 1 tab PO 0800 [facility] Last Admin: 10/21/17 08:43 Dose: 1 tab Ziprasidone (Geodon Inj) 10 mg IM Q6H PRN; Protocol PRN Reason: Agitation - Labs Labs: 10/22/17 06:30 10/22/17 06:30 PT 13.4 SECONDS (9.4-12.5) H 10/15/17 20:33 INR 1.17 (0.93-1.08) H 10/15/17 20:33 APTT 28.8 Seconds (25.1-36.5) 10/15/17 20:33 - Constitutional Appears: Non-toxic - Head Exam Head Exam: NORMAL INSPECTION - ENT Exam ENT Exam: Mucous Membranes Moist - Neck Exam Neck Exam: absent: Meningismus - Respiratory Exam Respiratory Exam: Decreased Breath Sounds - Cardiovascular Exam Cardiovascular Exam: +S1, +S2 - GI/Abdominal Exam GI & Abdominal Exam: Soft. absent: Tenderness Assessment and Plan - Assessment and Plan (Free Text) Plan: Assessment sepsis from methicillin-sensitive Staph aureus bacteremia with sacroiliitis in this patient with history of endocarditis - need to rule out endocarditis with this IV drug user homelessness history of endocarditis apparently treated in [facility] in June 2017 IVDA with cocaine and heroin Plan repeat blood cx are negative; continue Nafcillin and should complete at least 4- 6 weeks with weekly ESR, CRP, CBC, CMP; should get DANIEL when feasible; will continue to monitor clinically HIV test is negative
[2017-10-23] MEDS: Nafcillin 2 GM in Sodium Chloride 0.9% 100 ML IVPB SCH ×7 (01:09→23:45)
[2017-10-23] MEDS: Oxycodone/Acetaminophen 10/325 mg Tab PO PRN ×4 (06:55→22:49)
[2017-10-23 07:43] LABS: BASO # 0.04 K/mm3 (0.0-2.0); BASO % 0.5 % (0.0-3.0); EOS # 0.4 (0.0-0.7); EOS % 5.4 % (1.5-5.0); GRAN # 4.6 (1.4-6.5); GRAN % 55.9 % (50.0-68.0); HEMOGLOBIN 11.1 g/dL (14.0-18.0); LYMPH % 24.7 % (22.0-35.0); MEAN CELL VOLUME 89.1 fl (80.0-105.0); MEAN CORPUSCULAR HEMOGLOBIN 27.4 pg (25.0-35.0); MEAN CORPUSCULAR HGB CONC 30.7 g/dl (31.0-37.0); MEAN PLATELET VOLUME 8.6 fl (7.0-11.0); MONO # 1.1 (0.1-0.6); MONO % 13.5 % (1.0-6.0); RBC 4.05 10^6/uL (3.5-6.1); RED CELL DISTRIBUTION WIDTH 16.2 % (11.5-14.5); WHITE BLOOD COUNT 8.2 10^3/ul (4.5-11.0)
[2017-10-23 08:01] LABS: ALB/GLOB RATIO 0.9 (1.1-1.8); ALBUMIN 3.3 g/dL (3.0-4.8); ALT/SGPT 61 U/L (7-56); AST/SGOT 58 U/L (17-59); BLOOD UREA NITROGEN 19 mg/dL (7-21); CALCIUM 9.4 mg/dL (8.4-10.5); GFR AFRICAN-AMERICAN > 60; GFR NON-AFRICAN AMERICAN > 60
--- NOTE | 2017-10-23 09:08 | PN ---
DATE: 10/22/2017 PRESENTATION: He is being seen today for followup consultation. The patient is a 42-year-old male seen at bedside, one-to-one in attendance. The patient was originally admitted to the hospital complaining of chest pain. He had used heroin and cocaine a few hours prior to his ED visit. He has a history of endocarditis and ended up admitted medically. Consult was ordered for Psychiatry due to concerns of depression and whether or not the patient was suicidal or homicidal. The patient continues to be cooperative when interviewed. He is pleasant. He continues to have difficulty with concentration, thought process is circumstantial, tangential. He continues grandiose. He is slightly more organized than he was yesterday, but he continues to go from one thing to the next. Pt has understanding of his medical diagnosis and treatment plan. He was allowed to ask questions and the need for intravenous antibiotics for the next 4 to 6 weeks is the treatment plan. The patient does not meet the criteria to go to the Psych Unit at this moment, pt will need 6weeks of antibiotics in rehab facility. So, at this point, [facility] Looms have been consulted and the patient will continue to be followed on the medical floor. The patient does in fact want to go to some sort of a rehabilitation setting. He does not feel that he can remain sober without a sober living situation and proper support. The patient's current vital signs are temperature of 98.0, pulse rate of 98, blood pressure of 112/71, respiratory rate of 16, and an O2 sat of 100%. Yesterday, I have started the patient on Seroquel 25 mg one at bedtime, he is tolerating the medication well, but still up during the night and he still is disorganized and grandiose, so, this will be increased today. He has a p.r.n. of Geodon as well as routine Ativan and p.r.n. Ativan. MENTAL STATUS EXAMINATION: The patient is alert, is oriented x2. His eye contact is good. His behavior is cooperative. Speech rate and volume are within normal limits. Mood is between being sad being anxious. Affect is constricted. His thoughts are not goal directed. He has circumstantial, tangential, and sometimes very random in his choice of comments. He denies being suicidal or homicidal. pt made statement, "please document that I never said that I want to kill myself or others and make sure that sitter is not for suicidal thoughts". He denies adamantly that he is suicidal at this time and this is consistent with my assessment from yesterday. He denies being homicidal. He denies the presence of hallucinations, delusions, or paranoia. He continues grandiose. 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 His focus and concentration are scattered. His memory, both short and long-term, appears to have some impairment due to his disorganization. His appetite and his sleep are normalizing. DIAGNOSTIC IMPRESSION: Drug-related psychosis. PLAN: The patient denies being suicidal or homicidal, does not appear to be in any imminent danger of hurting himself or others; however, he is very disorganized and probably needs direction at this point in time. So, one-to-one will stay in place at least for the next 24 hours. The patient's Seroquel was increased from 25 mg at bedtime to 50. He has been getting his routine Ativan but not the p.r.n. Ativan and it has not been necessary for him to have the Geodon injection, which would be for severe agitation. The patient at this moment appears to understand the importance of continuing treatment. It was very clearly explained to him today evidently for the second time and he is willing to go along with the treatment plan and the secondary treatment plan will be getting him to a drug and alcohol rehabilitation facility. We will continue to follow. Thank you for the consult. Araceli Zendejas APN DIANNE
[2017-10-23] MEDS: POLYETHYLENE GLYCOL 3350 17 GM/Dose PACKET PO SCH (09:32)
--- NOTE | 2017-10-23 12:34 | CP.PCM.PN ---
Subjective - Date & Time of Evaluation Date of Evaluation: 10/23/17 Time of Evaluation: 12:00 - Subjective Subjective: No fevers, not in distress. Objective - Vital Signs/Intake and Output Vital Signs (last 24 hours): Temp Pulse Resp BP Pulse Ox 97.7 F 78 20 135/93 H 98 10/23/17 08:28 10/23/17 08:28 10/23/17 08:28 10/23/17 08:28 10/23/17 08:28 Intake and Output: 10/23/17 10/23/17 06:59 18:59 Intake Total 240 Balance 240 - Medications Medications: Current Medications Acetaminophen (Tylenol 325mg Tab) 650 mg PO Q6H PRN PRN Reason: Fever >100.4 F Last Admin: 10/19/17 17:27 Dose: 650 mg Cyclobenzaprine HCl (Flexeril) 5 mg PO TID [facility] Last Admin: 10/22/17 18:10 Dose: 5 mg Docusate Sodium (Colace) 100 mg PO BID [facility] Last Admin: 10/22/17 18:10 Dose: 100 mg Famotidine (Pepcid) 40 mg PO HS [facility] Last Admin: 10/22/17 21:49 Dose: 40 mg Folic Acid (Folic Acid) 1 mg PO DAILY [facility] Last Admin: 10/22/17 11:33 Dose: 1 mg Gabapentin (Neurontin) 600 mg PO HS [facility] PRN Reason: Protocol Last Admin: 10/22/17 21:48 Dose: 600 mg Heparin Sodium (Porcine) (Heparin) 5,000 units SC Q8 [facility] PRN Reason: Protocol Last Admin: 10/23/17 05:36 Dose: 5,000 units Hydrocortisone (Anusol-Hc) 1 gm [place] Q6H PRN PRN Reason: rectal pain Nafcillin Sodium 2 gm/ Sodium (Chloride) 100 mls @ 100 mls/hr IVPB Q4 [facility] PRN Reason: Protocol Stop: 11/19/17 12:01 Last Admin: 10/23/17 05:14 Dose: 100 mls/hr Ibuprofen (Motrin Tab) 400 mg PO Q6H PRN PRN Reason: Pain, Mild (1-3) Lorazepam (Ativan) 1 mg PO TID [facility] PRN Reason: Protocol Last Admin: 10/22/17 18:10 Dose: 1 mg Lorazepam (Ativan) 2 mg IVP Q8H PRN; Protocol PRN Reason: Symptoms of alcohol withdrawl Last Admin: 10/22/17 19:53 Dose: 2 mg Nicotine (Nicoderm Cq) 1 patch TD DAILY [facility] Last Admin: 10/22/17 11:32 Dose: 1 patch Ondansetron HCl (Zofran Inj) 4 mg IVP Q4H PRN PRN Reason: Nausea/Vomiting Oxycodone/Acetaminophen (Percocet 10/325 Mg Tab) 1 tab PO Q4H PRN PRN Reason: Pain, severe (8-10) Last Admin: 10/23/17 06:55 Dose: 1 tab Polyethylene Glycol (Miralax) 17 gm PO DAILY [facility] Last Admin: 10/22/17 11:32 Dose: 17 gm Quetiapine Fumarate (Seroquel) 50 mg PO HS [facility] PRN Reason: Protocol Last Admin: 10/22/17 21:49 Dose: 50 mg Thiamine HCl (Vitamin B1 Tab) 100 mg PO DAILY [facility] Last Admin: 10/22/17 11:33 Dose: 100 mg Vitamin B Complex/Vit C/Folic Acid (Nephro-Meghan) 1 tab PO 0800 [facility] Last Admin: 10/22/17 11:32 Dose: 1 tab Ziprasidone (Geodon Inj) 10 mg IM Q6H PRN; Protocol PRN Reason: Agitation - Labs Labs: 10/23/17 07:20 10/23/17 07:20 PT 13.4 SECONDS (9.4-12.5) H 10/15/17 20:33 INR 1.17 (0.93-1.08) H 10/15/17 20:33 APTT 28.8 Seconds (25.1-36.5) 10/15/17 20:33 - Constitutional Appears: Non-toxic - Head Exam Head Exam: NORMAL INSPECTION - Neck Exam Neck Exam: absent: Meningismus - Respiratory Exam Respiratory Exam: Decreased Breath Sounds - Cardiovascular Exam Cardiovascular Exam: +S1, +S2 - GI/Abdominal Exam GI & Abdominal Exam: Soft. absent: Tenderness Assessment and Plan - Assessment and Plan (Free Text) Plan: Assessment sepsis from methicillin-sensitive Staph aureus bacteremia with sacroiliitis in this patient with history of endocarditis - need to rule out endocarditis with this IV drug user homelessness history of endocarditis apparently treated in [facility] in June 2017 IVDA with cocaine and heroin Plan repeat blood cx are negative; continue Nafcillin and should complete at least 4- 6 weeks (from 10/18/2017 which is the first day of negative blood cx) with weekly ESR, CRP, CBC, CMP; should get DANIEL when feasible; will continue to monitor clinically HIV test is negative
[2017-10-23] MEDS: Multivitamin Vitamin B Complex (Nephro-Vite) Tab PO SCH (14:42)
--- NOTE | 2017-10-23 15:53 | CP.PCM.PCO ---
Physician Communication Note - Physician Communication Note Physician Communication Note: RN contacted this commercial loan underwriter, pt has mood swings, irritability Addendum Addendum: 10/23/17 15:52 RN contacted this commercial loan underwriter, pt has mood swings, irritability, confusion at times pt has tendency of asking for IV ativan, will be d/c will increase po ativan 2mg po tid seroquel will be increased to 100mg po amhs for mood stabilization and delirium stage stat dose of seroquel was given
--- NOTE | 2017-10-23 16:12 | CP.PCM.PN ---
<Maureen He - Last Filed: 10/23/17 16:08> Subjective - Date & Time of Evaluation Date of Evaluation: 10/23/17 Time of Evaluation: 07:30 - Subjective Subjective: Maureen He DO PGY1 - IM Progress Note Patient seen and examined at bedside. Patient again claims he hit his back on the armrest of a chair in his room early last night. He continues to complain of right sided low back pain, patient informed that he will not get any more morphine, and he verbalized understanding and agreement. He denies any chest pain, shortness of breath, abdominal pain, nausea, vomiting, diarrhea, constipation. He again denies suicidal or homicidal ideation. Patient has reportedly been agitated on occasion, is worried about his belongings. Requesting a phone with which to make a call. Objective - Vital Signs/Intake and Output Vital Signs (last 24 hours): Temp Pulse Resp BP Pulse Ox 97.7 F 78 20 135/93 H 98 10/23/17 08:28 10/23/17 08:28 10/23/17 08:28 10/23/17 08:28 10/23/17 08:28 Intake and Output: 10/23/17 10/23/17 06:59 18:59 Intake Total 240 Balance 240 - Medications Medications: Current Medications Acetaminophen (Tylenol 325mg Tab) 650 mg PO Q6H PRN PRN Reason: Fever >100.4 F Last Admin: 10/19/17 17:27 Dose: 650 mg Cyclobenzaprine HCl (Flexeril) 5 mg PO TID [facility] Last Admin: 10/23/17 14:41 Dose: 5 mg Docusate Sodium (Colace) 100 mg PO BID [facility] Last Admin: 10/23/17 09:32 Dose: 100 mg Famotidine (Pepcid) 40 mg PO HS [facility] Last Admin: 10/22/17 21:49 Dose: 40 mg Folic Acid (Folic Acid) 1 mg PO DAILY [facility] Last Admin: 10/23/17 09:33 Dose: 1 mg Gabapentin (Neurontin) 600 mg PO HS [facility] PRN Reason: Protocol Last Admin: 10/22/17 21:48 Dose: 600 mg Heparin Sodium (Porcine) (Heparin) 5,000 units SC Q8 [facility] PRN Reason: Protocol Last Admin: 10/23/17 14:41 Dose: 5,000 units Hydrocortisone (Anusol-Hc) [address] Q6H PRN PRN Reason: rectal pain Nafcillin Sodium 2 gm/ Sodium (Chloride) 100 mls @ 100 mls/hr IVPB Q4 [facility] PRN Reason: Protocol Stop: 11/19/17 12:01 Last Admin: 10/23/17 14:40 Dose: 100 mls/hr Ibuprofen (Motrin Tab) 400 mg PO Q6H PRN PRN Reason: Pain, Mild (1-3) Lorazepam (Ativan) 2 mg PO TID [facility] PRN Reason: Protocol Nicotine (Nicoderm Cq) 1 patch TD DAILY [facility] Last Admin: 10/23/17 09:30 Dose: 1 patch Ondansetron HCl (Zofran Inj) 4 mg IVP Q4H PRN PRN Reason: Nausea/Vomiting Oxycodone/Acetaminophen (Percocet 10/325 Mg Tab) 1 tab PO Q4H PRN PRN Reason: Pain, severe (8-10) Last Admin: 10/23/17 14:46 Dose: 1 tab Polyethylene Glycol (Miralax) 17 gm PO DAILY [facility] Last Admin: 10/23/17 09:32 Dose: 17 gm Quetiapine Fumarate (Seroquel) 100 mg PO [facility] PRN Reason: Protocol Thiamine HCl (Vitamin B1 Tab) 100 mg PO DAILY [facility] Last Admin: 10/23/17 09:32 Dose: 100 mg Vitamin B Complex/Vit C/Folic Acid (Nephro-Meghan) 1 tab PO 0800 [facility] Last Admin: 10/23/17 14:42 Dose: 1 tab Ziprasidone (Geodon Inj) 10 mg IM Q6H PRN; Protocol PRN Reason: Agitation - Labs Labs: 10/23/17 07:20 10/23/17 07:20 PT 13.4 SECONDS (9.4-12.5) H 10/15/17 20:33 INR 1.17 (0.93-1.08) H 10/15/17 20:33 APTT 28.8 Seconds (25.1-36.5) 10/15/17 20:33 - Additional Findings Additional findings: - Constitutional Appears: Non-toxic, No Acute Distress, confused - Head Exam Head Exam: ATRAUMATIC, NORMOCEPHALIC - Eye Exam Eye Exam: EOMI, Normal appearance, PERRL - ENT Exam ENT Exam: Mucous Membranes Moist - Neck Exam Neck Exam: Normal Inspection - Respiratory Exam Respiratory Exam: Clear to Ausculation Bilateral, NORMAL BREATHING PATTERN - Cardiovascular Exam Cardiovascular Exam: RRR, +S1, +S2 - GI/Abdominal Exam GI & Abdominal Exam: Soft, Normal Bowel Sounds. absent: Tenderness - Extremities Exam Extremities Exam: absent: Calf Tenderness, Pedal Edema - Back Exam Back Exam: Point tenderness over R SI joint, appears less than on prior exams. No swelling, ecchymosis, or abrasion - Neurological Exam Neurological Exam: Alert, Awake, Oriented x3 - Psychiatric Exam Psychiatric exam: Normal Affect, Normal Mood - Skin Skin Exam: Dry, Normal Color Assessment and Plan - Assessment and Plan (Free Text) Assessment: Patient is a 42 y/o Male with PMHx of homeless, endocarditis, chronic alcohol abuse, IVDA- cocaine and heroine presenting with substernal chest pain radiating to the back and lower back pain for 2 days. Patient tested positive for cocaine and heroine in the ED. CT chest revealed no PE, had [address] of L spine with DJD of L3-L4. MRI L spine shows mild degenerative changes; no discitis or epidural abscess. MRI of sacrum significant for marrow edema in R sacrum; consistent with septic sacroilitis Plan: 1) Chest pain r/o ACS due to cocaine versus endocarditis. - Chest pain resolved, ACS ruled out - TTE unremarkable; no vegetations - Initial cultures show MSSA, in two bottles; repeat cultures negative x5 days, second repeat also negative x4 days - Per ID, recommend DANIEL to r/o vegetation - Cardio on consult; signed off 2) Back pain 2/2 septic sacroiliitis - MRI of sacrum significant for marrow edema in R sacrum; consistent with septic sacroilitis - Continue motrin, toradol, gabapentin, flexeril - Continue percocet 10/325 PO Q4H PRN severe pain - Miralax and Colace to prevent constipation 3) Depression; suicidal ideation - Patient has endorsed to multiple providers in the hospital thoughts of hurting himself upon discharge; 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 - Patient continues to have occasional episodes of agitation - Currently denies SI/HI - 1:1 sitter for observation for suicidal ideation - Ativan increased to 2mg PO TID, Seroquel increased to 100mg PO [facility], and Geodon 10mg Q6H PRN - Requested psych consult; appreciate recs 4) Polysubstance abuse, including alcohol - Withdrawal state improving - Continue ativan 2mg IV q8 prn - Thiamine, folic acid, and multi vitamin 5) Bacteremia - Initial blood cultures show MSSA, in two bottles; repeat cultures negative x5 days, second repeat also negative x4 days - Continue Nafcillin; patient will require 6 week course; per ID - ESR and CRP high; recheck after one week - ID on consult; appreciate recs 6) 6 mm Pulmonary nodule - Repeat CT in 6-12 months. DVT and GI prophylaxis: Pepcid for GI prophylaxis. Heparin for DVT prophylaxis. Patient seen, examined and case discussed with Dr. Kingsley <Leonardo Kingsley - Last Filed: 10/24/17 16:18> Objective - Vital Signs/Intake and Output Vital Signs (last 24 hours): Temp Pulse Resp BP Pulse Ox 97.9 F 68 18 113/58 L 100 10/24/17 08:00 10/24/17 08:00 10/24/17 08:00 10/24/17 08:00 10/24/17 08:00 Intake and Output: 10/24/17 10/24/17 06:59 18:59 Intake Total 1760 Output Total 900 Balance 860 - Medications Medications: Current Medications Acetaminophen (Tylenol 325mg Tab) 650 mg PO Q6H PRN PRN Reason: Fever >100.4 F Last Admin: 10/19/17 17:27 Dose: 650 mg Docusate Sodium (Colace) 100 mg PO BID [facility] Last Admin: 10/24/17 11:24 Dose: 100 mg Famotidine (Pepcid) 40 mg PO HS [facility] Last Admin: 10/23/17 21:17 Dose: 40 mg Folic Acid (Folic Acid) 1 mg PO DAILY [facility] Last Admin: 10/24/17 11:24 Dose: 1 mg Gabapentin (Neurontin) 600 mg PO HS [facility] PRN Reason: Protocol Last Admin: 10/23/17 21:17 Dose: 600 mg Heparin Sodium (Porcine) (Heparin) 5,000 units SC Q8 [facility] PRN Reason: Protocol Last Admin: 10/24/17 14:18 Dose: 5,000 units Hydrocortisone (Anusol-Hc) [address] Q6H PRN PRN Reason: rectal pain Nafcillin Sodium 2 gm/ Sodium (Chloride) 100 mls @ 100 mls/hr IVPB Q4 [facility] PRN Reason: Protocol Stop: 11/19/17 12:01 Last Admin: 10/24/17 12:09 Dose: 100 mls/hr Ibuprofen (Motrin Tab) 400 mg PO Q6H PRN PRN Reason: Pain, Mild (1-3) Last Admin: 10/23/17 21:20 Dose: 400 mg Lorazepam (Ativan) 2 mg PO TID [facility] PRN Reason: Protocol Last Admin: 10/24/17 14:17 Dose: 2 mg Nicotine (Nicoderm Cq) 1 patch TD DAILY [facility] Last Admin: 10/23/17 09:30 Dose: 1 patch Ondansetron HCl (Zofran Inj) 4 mg IVP Q4H PRN PRN Reason: Nausea/Vomiting Oxycodone/Acetaminophen (Percocet 10/325 Mg Tab) 1 tab PO Q4H PRN PRN Reason: Pain, severe (8-10) Last Admin: 10/24/17 11:19 Dose: 1 tab Polyethylene Glycol (Miralax) 17 gm PO DAILY [facility] Last Admin: 10/24/17 11:20 Dose: Not Given Quetiapine Fumarate (Seroquel) 100 mg PO [facility] PRN Reason: Protocol Last Admin: 10/23/17 21:17 Dose: 100 mg Thiamine HCl (Vitamin B1 Tab) 100 mg PO DAILY [facility] Last Admin: 10/23/17 09:32 Dose: 100 mg Vitamin B Complex/Vit C/Folic Acid (Nephro-Meghan) 1 tab PO 0800 [facility] Last Admin: 10/23/17 14:42 Dose: 1 tab Ziprasidone (Geodon Inj) 10 mg IM Q6H PRN; Protocol PRN Reason: Agitation - Labs Labs: 10/23/17 07:20 10/23/17 07:20 PT 13.4 SECONDS (9.4-12.5) H 10/15/17 20:33 INR 1.17 (0.93-1.08) H 10/15/17 20:33 APTT 28.8 Seconds (25.1-36.5) 10/15/17 20:33 Attending/Attestation - Attestation I have personally seen and examined this patient.: Yes I have fully participated in the care of the patient.: Yes I have reviewed all pertinent clinical information, including history, physical exam and plan: Yes Notes (Text): 10/24/17 16:15 Attending note; Patient seen and examined with the resident. opiate seeking behavior for nonspecific pain. Patient is not in distress. Patient is a 42 year old male with history of homelessness, IVDA, endocarditis apparently completed treatment at [facility], chronic alcohol abuse was admitted for evaluation of chest pain, back pain/ nonspecific symptoms. Blood cultures are positive for MSSA. Currently started on IV nafcillin. TTE is negative for vegetation. MRI LS spine did not reveal any abscess. MRI of the pelvis showed marrow edema of right sacral ala. Case discussed with ID in detail. Patient needs to complete 6 weeks of IV antibiotics therapy. Anxiety depression ; psychiatric evaluation appreciated. Continue gabapentin and Seroquel. Ativan added. medications will be adjusted by psychiatrist. Heroine abuse; Counselling provided regarding polysubstance abuse and alcohol cessation. Case discussed with protective services social worker for discharge planning. patient might need subacute rehabilitation placement for long-term anti-biotics. PICC line placement requested. Upon discharge patient will follow up in [facility] clinic.
[2017-10-23 23:47] VITALS: RESP 18
[2017-10-24] MEDS: Oxycodone/Acetaminophen 10/325 mg Tab PO PRN ×3 (05:05→17:40)
[2017-10-24] MEDS: Nafcillin 2 GM in Sodium Chloride 0.9% 100 ML IVPB SCH ×5 (05:13→21:37)
[2017-10-24] MEDS: Multivitamin Vitamin B Complex (Nephro-Vite) Tab PO SCH (08:39)
--- NOTE | 2017-10-24 08:57 | PN ---
DATE: 10/23/2017 He is being seen today for a followup consultation. PRESENTATION: Patient was originally admitted to the hospital on 10/15/2017 complaining of chest pain and back pain, had been using heroin and cocaine a few hours prior to ED visit. Psychiatric consult was ordered with concerns regarding patient being depressed or suicidal or homicidal. Patient was seen in the company of Dr. Bray. Patient was more organized and more alert than previously seen. He is able to fully understand the need for his continued treatment, described what his medical condition is, and how it needs to be treated for a while, and thorough understanding the importance of taking care of this health issue prior to picking up the rest of his life. He does want to comply with treatment; however, he does have concerns that he has some belongings that can where they are while he is treating this, but he is going to try to get a hold of a friend to take care of this for him. He has a level of frustration due to the fact that his phone is not working, but he is trying to work with this. One-to-one was discontinued as it was at this point for the patient's safety due to the fact that he was having some confusion, some grandiosity, some altered thought processes and these seemed to be resolving at this point in time; so the one-to-one was discontinued. PHYSICAL EXAMINATION: VITAL SIGNS: Current vital signs include temperature of 97.7, blood pressure of 135/93, respiratory rate of 20, and O2 sat of 98. MENTAL STATUS EXAM: Patient is alert and oriented x3. His eye contact is good. His behavior is cooperative and he is calm. Speech rate and volume are within normal limits. Mood is blunted. Affect is constricted. His thoughts remain circumstantial and tangential. He denies being suicidal or homicidal. He denies the presence of hallucinations, delusions, or paranoia. His concentration and focus are still scattered. His memory, both short and skilled nursing, continues to have some deficit, but appears to be improving. He indicates he was sleeping and eating well here in the hospital. He is taking medications as prescribed. DIAGNOSTIC IMPRESSION: Substance-induced mood disorder, withdrawal. PLAN: Patient denies being suicidal or homicidal and appears in no imminent danger of hurting himself or others. His one-to-one was discontinued; however, it had been continued not for the reasons of being suicidal, but due to the concerns about his mental health symptoms which appeared to be slowly resolving. Patient is willing to go to a subacute facility to get his intravenous IV medication to clear up his infection and is aware that this is the plan for him. We will continue to follow while patient is in hospital. Thank you for the consult. Araceli Zendejas APN Kim Bray MD
[2017-10-24 09:47] VITALS: BP 113/58; PULSE 68; TEMP 97.9; O2SAT 100
[2017-10-24] MEDS: POLYETHYLENE GLYCOL 3350 17 GM/Dose PACKET PO SCH (11:20)
--- NOTE | 2017-10-24 14:50 | CP.PCM.PCO ---
Addendum Addendum: 10/24/17 14:46 pt was seen with Pt has factual understanding of diagnosis, treatment, benefits of procedure and tx plan, was able to indicate his preferences pt does not express any thoughts of harming self or others pt deems not in any imminent danger to self or others as per staff pt has good appetite and sleep, no aggression, no agitation
[2017-10-24] MEDS ORDERED: Morphine 2 mg/ml ISec IVP STA (15:48)
--- NOTE | 2017-10-24 16:11 | PN ---
DATE: 10/24/2017 He is being seen today for a followup consultation and the date is 10/24/2017. PRESENTATION: The patient is a 42-year-old male, seen at bedside. He originally was admitted to the hospital on 10/15/2017 for substernal chest pain radiating to back and lower back for 2 days along with weakness. He has had a history of endocarditis. Consultation was ordered due to concerns that the patient might be suicidal or homicidal, depressed. The patient today is very sad in appearance. He indicates that he understands the seriousness of his medical condition and he is really wanting to handle it; however, he is concerned about his belongings that he would like to secure them. He has a place to send them. He has not been able to ascertain how to do all of this because his phone is not working. I requested that a rn social services sit with the patient in order to help him process through and figure out, get this situation resolved in some way. Evidently, this is not something she is able to do; however, she is willing to facilitate this and someway she will work on the situation. The patient becomes tearful in talking about how difficult it is for him to actually deal with something as opposed to running away or using drugs. He indicates he wants to change. He does not want to continue using drugs that he wants to get back to work and be able to support himself and have a home. The patient's current vital signs are 97.9 temp, pulse rate of 68, blood pressure of 113/58 and an O2 sat of 100%. MENTAL STATUS EXAM: The patient is alert and oriented x3. Eye contact is good. Behavior is cooperative. Speech rate and volume are within normal limits. His thoughts seemed to be more organized today. Mood is sad. Affect is constricted. Thoughts are goal directed. He denies being suicidal or homicidal. He denies the presence of hallucinations, delusions or paranoia. His concentration and his focus are impaired. His memory both short and retirement appears to be adequate. His appetite and sleep he indicates they are normalizing. DIAGNOSTIC IMPRESSION: Drug-induced psychosis, cocaine dependence, heroin dependence. PLAN: The patient denies being suicidal or homicidal. He appears in no imminent danger of hurting himself or others. He is willing to go to the subacute facility because he does want to take care of this infection and he is being assisted by the social work department in trying to find the solution to getting his belongings somewhere for the time that it will take for him to be treated. We will continue to follow. Thank you for the consult. Araceli Zendejas APN
--- NOTE | 2017-10-24 17:18 | PN ---
DATE: SUBJECTIVE: The patient is 42-year-old, polysubstance abuse and dependence. The patient was admitted on the medical side for chest pain. The patient was found to have endocarditis, sepsis, and also osteomyelitis. At the present moment, the patient required to have PICC line in order to continue antibiotics for another 6 weeks. The patient has tendency of manipulating, requesting to be on Ativan as well as morphine. Before going for procedure, the patient was requested to be on morphine. The patient also has tendency of being indecisive in the way that medical team is concerned about the patient's capacity to make decisions at this time. The patient was seen and examined with Dr. Kingsley today for evaluation of the capacity to make decisions in case if the patient wants to leave against medical advice. The patient was seen and examined together with Dr. Kingsley. The patient was alert and oriented, pleasant, superficially cooperative. The patient said that he is aware about his medical condition. The patient knows that he has infection in his blood. The patient also knows that he needs to continue 6 weeks of antibiotics. The patient was concerned about his belongings, which are at the present moment in garage store in his friend's house. The patient said that he was not able to get in contact with his friend and he is not sure if his friend is going to keep his belongings. At the same time, the patient made statement, he knows that some of the staff will be irreplaceable but "my help is more important." The patient is willing to have PICC line. The patient is willing to continue antibiotics. The patient is willing to participate in treatment plan. The patient said before procedure, he feels very anxious. This global technical writer offered Ativan 2 mg IV push prior to go for the procedure for the PICC line. From this global technical writer's professional opinion, the patient was able to understand the diagnosis, treatment and potential benefits, risk and consequences of being with therapy and without it. The patient had factual understanding of diagnosis. The patient had insight and appreciation. The patient had reasoning ability. The patient was able to indicate his preferences. The patient was alert and oriented. No suicidal or homicidal ideations identified or reported. Vital signs are stable. Temperature 97.9, pulse is 68, blood pressure 113/58, respiration 18, oxygen saturation is 100. Medications reviewed. The patient is on Tylenol, Flexeril, Colace, Pepcid, folic acid, Neurontin, heparin, Motrin, Ativan, sodium chloride, Nicoderm, Zofran, Percocet, MiraLax, Seroquel, vitamin B1, and Geodon 10 mg IM q.6h. p.r.n. Labs reviewed. MENTAL STATUS EXAMINATION: As this global technical writer described above, the patient was alert and oriented, pleasant, superficially cooperative with fair eye contact. Speech was normal rate, tone, quality, and quantity. Mood described as "I want to get better." Affect was constricted. Thought process goal directed and coherent. Thought content, the patient denied visual, auditory, or tactile hallucinations. Denied paranoid ideation. The patient denied thoughts of harming himself or others. Denied intent or plan. Insight and judgment seem to be fair. Impulses are well controlled. IMPRESSION: At the beginning, the patient was in delirium stage, which is improving slowly. The patient has history of polysubstance abuse and dependence, multiple medical issues. PLAN: The patient's Seroquel was increased to 100 mg twice a day as well as Ativan 2 mg three times a day scheduled. This global technical writer will suggest that before PICC line procedure, the patient could have 2 mg of Ativan IV push. We will follow up and advise accordingly. Based on this evaluation, the patient has a capacity to leave against medical advice if he is willing to at this moment. Should you have any questions, give me a call back. Discussed with Truck Driver Rubbish Collector, case management, and with Dr. Kingsley. Kim Bray MD
--- NOTE | 2017-10-24 17:57 | CP.PCM.PN ---
Subjective - Date & Time of Evaluation Date of Evaluation: 10/24/17 Time of Evaluation: 12:00 - Subjective Subjective: Comfortable, no fevers, not in distress. Objective - Vital Signs/Intake and Output Vital Signs (last 24 hours): Temp Pulse Resp BP Pulse Ox 98.8 F 86 18 110/59 L 98 10/23/17 16:00 10/23/17 16:00 10/23/17 16:00 10/23/17 16:00 10/23/17 16:00 Intake and Output: 10/24/17 10/24/17 06:59 18:59 Intake Total 1760 Output Total 900 Balance 860 - Medications Medications: Current Medications Acetaminophen (Tylenol 325mg Tab) 650 mg PO Q6H PRN PRN Reason: Fever >100.4 F Last Admin: 10/19/17 17:27 Dose: 650 mg Cyclobenzaprine HCl (Flexeril) 5 mg PO TID [facility] Last Admin: 10/23/17 17:03 Dose: 5 mg Docusate Sodium (Colace) 100 mg PO BID [facility] Last Admin: 10/23/17 17:03 Dose: 100 mg Famotidine (Pepcid) 40 mg PO HS [facility] Last Admin: 10/23/17 21:17 Dose: 40 mg Folic Acid (Folic Acid) 1 mg PO DAILY [facility] Last Admin: 10/23/17 09:33 Dose: 1 mg Gabapentin (Neurontin) 600 mg PO HS [facility] PRN Reason: Protocol Last Admin: 10/23/17 21:17 Dose: 600 mg Heparin Sodium (Porcine) (Heparin) 5,000 units SC Q8 [facility] PRN Reason: Protocol Last Admin: 10/24/17 05:06 Dose: 5,000 units Hydrocortisone (Anusol-Hc) 1 gm OK Q6H PRN PRN Reason: rectal pain Nafcillin Sodium 2 gm/ Sodium (Chloride) 100 mls @ 100 mls/hr IVPB Q4 [facility] PRN Reason: Protocol Stop: 11/19/17 12:01 Last Admin: 10/24/17 05:13 Dose: 100 mls/hr Ibuprofen (Motrin Tab) 400 mg PO Q6H PRN PRN Reason: Pain, Mild (1-3) Last Admin: 10/23/17 21:20 Dose: 400 mg Lorazepam (Ativan) 2 mg PO TID [facility] PRN Reason: Protocol Last Admin: 10/23/17 17:03 Dose: 2 mg Nicotine (Nicoderm Cq) 1 patch TD DAILY [facility] Last Admin: 10/23/17 09:30 Dose: 1 patch Ondansetron HCl (Zofran Inj) 4 mg IVP Q4H PRN PRN Reason: Nausea/Vomiting Oxycodone/Acetaminophen (Percocet 10/325 Mg Tab) 1 tab PO Q4H PRN PRN Reason: Pain, severe (8-10) Last Admin: 10/24/17 05:05 Dose: 1 tab Polyethylene Glycol (Miralax) 17 gm PO DAILY [facility] Last Admin: 10/23/17 09:32 Dose: 17 gm Quetiapine Fumarate (Seroquel) 100 mg PO AMHS [facility] PRN Reason: Protocol Last Admin: 10/23/17 21:17 Dose: 100 mg Thiamine HCl (Vitamin B1 Tab) 100 mg PO DAILY [facility] Last Admin: 10/23/17 09:32 Dose: 100 mg Vitamin B Complex/Vit C/Folic Acid (Nephro-Meghan) 1 tab PO 0800 [facility] Last Admin: 10/23/17 14:42 Dose: 1 tab Ziprasidone (Geodon Inj) 10 mg IM Q6H PRN; Protocol PRN Reason: Agitation - Labs Labs: 10/23/17 07:20 10/23/17 07:20 PT 13.4 SECONDS (9.4-12.5) H 10/15/17 20:33 INR 1.17 (0.93-1.08) H 10/15/17 20:33 APTT 28.8 Seconds (25.1-36.5) 10/15/17 20:33 - Constitutional Appears: Chronically Ill - Head Exam Head Exam: NORMAL INSPECTION - Neck Exam Neck Exam: absent: Meningismus - Respiratory Exam Respiratory Exam: Decreased Breath Sounds - Cardiovascular Exam Cardiovascular Exam: +S1, +S2 - GI/Abdominal Exam GI & Abdominal Exam: Soft. absent: Tenderness Assessment and Plan - Assessment and Plan (Free Text) Plan: Assessment sepsis from methicillin-sensitive Staph aureus bacteremia with sacroiliitis in this patient with history of endocarditis - need to rule out endocarditis with this IV drug user homelessness history of endocarditis apparently treated in [facility] [place] in June 2017 IVDA with cocaine and heroin Plan repeat blood cx are negative; continue Nafcillin and should complete at least 4- 6 weeks (from 10/18/2017 which is the first day of negative blood cx) with weekly ESR, CRP, CBC, CMP; should get DANIEL when feasible; will continue to monitor clinically - can switch to Cefazolin instead of Nafcillin HIV test is negative
--- NOTE | 2017-10-24 20:34 | CP.PCM.PN ---
<Maureen He - Last Filed: 10/24/17 20:24> Subjective - Date & Time of Evaluation Date of Evaluation: 10/24/17 Time of Evaluation: 07:30 - Subjective Subjective: Maureen Neri DO PGY1 - IM Progress Note Patient seen and examined at bedside. No acute events overnight. Patient reports slight improvement in his pain since yesterday. He was observed resting comfortably in bed, and then later seen ambulating around the halls in the hospital. Patient is scheduled for PICC line placement today, pending discharge to rehab facility. This was discussed with patient who verbalized understanding , agreement, and acceptance with plan. He denies any fever, chills, abdominal pain, diarrhea, constipation. Objective - Vital Signs/Intake and Output Vital Signs (last 24 hours): Temp Pulse Resp BP Pulse Ox 97.9 F 68 18 113/58 L 100 10/24/17 08:00 10/24/17 08:00 10/24/17 08:00 10/24/17 08:00 10/24/17 08:00 - Medications Medications: Current Medications Acetaminophen (Tylenol 325mg Tab) 650 mg PO Q6H PRN PRN Reason: Fever >100.4 F Last Admin: 10/19/17 17:27 Dose: 650 mg Docusate Sodium (Colace) 100 mg PO BID [facility] Last Admin: 10/24/17 18:36 Dose: 100 mg Famotidine (Pepcid) 40 mg PO HS [facility] Last Admin: 10/23/17 21:17 Dose: 40 mg Folic Acid (Folic Acid) 1 mg PO DAILY [facility] Last Admin: 10/24/17 11:24 Dose: 1 mg Gabapentin (Neurontin) 600 mg PO HS [facility] PRN Reason: Protocol Last Admin: 10/23/17 21:17 Dose: 600 mg Heparin Sodium (Porcine) (Heparin) 5,000 units SC Q8 [facility] PRN Reason: Protocol Last Admin: 10/24/17 14:18 Dose: 5,000 units Hydrocortisone (Anusol-Hc) 1 gm RI Q6H PRN PRN Reason: rectal pain Nafcillin Sodium 2 gm/ Sodium (Chloride) 100 mls @ 100 mls/hr IVPB Q4 [facility] PRN Reason: Protocol Stop: 11/19/17 12:01 Last Admin: 10/24/17 16:37 Dose: 100 mls/hr Ibuprofen (Motrin Tab) 400 mg PO Q6H PRN PRN Reason: Pain, Mild (1-3) Last Admin: 10/23/17 21:20 Dose: 400 mg Lorazepam (Ativan) 2 mg PO TID [facility] PRN Reason: Protocol Last Admin: 10/24/17 14:17 Dose: 2 mg Lorazepam (Ativan) 2 mg IVP Q6H PRN; Protocol PRN Reason: Anxiety Last Admin: 10/24/17 17:37 Dose: 2 mg Nicotine (Nicoderm Cq) 1 patch TD DAILY [facility] Last Admin: 10/24/17 11:20 Dose: 1 patch Ondansetron HCl (Zofran Inj) 4 mg IVP Q4H PRN PRN Reason: Nausea/Vomiting Oxycodone/Acetaminophen (Percocet 10/325 Mg Tab) 1 tab PO Q4H PRN PRN Reason: Pain, severe (8-10) Last Admin: 10/24/17 17:40 Dose: 1 tab Polyethylene Glycol (Miralax) 17 gm PO DAILY [facility] Last Admin: 10/24/17 11:20 Dose: Not Given Quetiapine Fumarate (Seroquel) 100 mg PO AMHS [facility] PRN Reason: Protocol Last Admin: 10/24/17 11:20 Dose: 100 mg Thiamine HCl (Vitamin B1 Tab) 100 mg PO DAILY [facility] Last Admin: 10/24/17 11:20 Dose: 100 mg Vitamin B Complex/Vit C/Folic Acid (Nephro-Meghan) 1 tab PO 0800 [facility] Last Admin: 10/24/17 08:39 Dose: 1 tab Ziprasidone (Geodon Inj) 10 mg IM Q6H PRN; Protocol PRN Reason: Agitation - Labs Labs: 10/23/17 07:20 10/23/17 07:20 PT 13.4 SECONDS (9.4-12.5) H 10/15/17 20:33 INR 1.17 (0.93-1.08) H 10/15/17 20:33 APTT 28.8 Seconds (25.1-36.5) 10/15/17 20:33 - Constitutional Appears: Non-toxic, No Acute Distress - Head Exam Head Exam: ATRAUMATIC, NORMOCEPHALIC - Eye Exam Eye Exam: EOMI, Normal appearance, PERRL Pupil Exam: NORMAL ACCOMODATION - ENT Exam ENT Exam: Mucous Membranes Moist - Neck Exam Neck Exam: Normal Inspection - Respiratory Exam Respiratory Exam: Clear to Ausculation Bilateral, NORMAL BREATHING PATTERN - Cardiovascular Exam Cardiovascular Exam: RRR, +S1, +S2 - GI/Abdominal Exam GI & Abdominal Exam: Soft, Normal Bowel Sounds. absent: Tenderness - Extremities Exam Extremities Exam: absent: Calf Tenderness, Pedal Edema - Neurological Exam Neurological Exam: Alert, Awake, Oriented x3 - Psychiatric Exam Psychiatric exam: Normal Affect, Normal Mood - Skin Skin Exam: Dry, Intact, Normal Color Assessment and Plan - Assessment and Plan (Free Text) Assessment: Patient is a 42 y/o Male with PMHx of homeless, endocarditis, chronic alcohol abuse, IVDA- cocaine and heroine presenting with substernal chest pain radiating to the back and lower back pain for 2 days. Patient tested positive for cocaine and heroine in the ED. CT chest revealed no PE, had [address] of L spine with DJD of L3-L4. MRI L spine shows mild degenerative changes; no discitis or epidural abscess. MRI of sacrum significant for marrow edema in R sacrum; consistent with septic sacroilitis Plan: 1) Chest pain r/o ACS due to cocaine versus endocarditis. - Resolved - Repeat blood cultures negative; unlikely to have endocarditis - Cardio on consult; signed off 2) Septic sacroiliitis with associated back pain - Initial blood cultures show MSSA, in two bottles; repeat cultures negative x5 days, second repeat also negative x5 days - MRI of sacrum significant for marrow edema in R sacrum; consistent with septic sacroilitis - ESR and CRP high; recheck after one week - Continue Nafcillin; patient will require 6 week course; per ID - Continue motrin, toradol, gabapentin, flexeril - Continue percocet 10/325 PO Q4H PRN severe pain - Miralax and Colace to prevent constipation - ID on consult; appreciate recs 3) Depression; suicidal ideation - Patient continues to have occasional episodes of agitation - Currently denies SI/HI - 1:1 sitter discontinued yesterday - Ativan increased to 2mg PO TID, Seroquel increased to 100mg PO AMHS, and Geodon 10mg Q6H PRN - Requested psych consult; appreciate recs 4) Polysubstance abuse, including alcohol - Withdrawal state improving - Continue ativan 2mg IV q8 prn - Thiamine, folic acid, and multi vitamin 5) 6 mm Pulmonary nodule - Repeat CT in 6-12 months. DVT and GI prophylaxis: Pepcid for GI prophylaxis. Heparin for DVT prophylaxis. Patient seen, examined and case discussed with Dr. Kingsley <Leonardo Kingsley - Last Filed: 10/25/17 07:55> Objective - Vital Signs/Intake and Output Vital Signs (last 24 hours): Temp Pulse Resp BP Pulse Ox 97.9 F 68 18 113/58 L 100 10/24/17 08:00 10/24/17 08:00 10/24/17 08:00 10/24/17 08:00 10/24/17 08:00 Intake and Output: 10/25/17 10/25/17 06:59 18:59 Intake Total 1920 Balance 1920 - Medications Medications: Current Medications Acetaminophen (Tylenol 325mg Tab) 650 mg PO Q6H PRN PRN Reason: Fever >100.4 F Last Admin: 10/19/17 17:27 Dose: 650 mg Docusate Sodium (Colace) 100 mg PO BID [facility] Last Admin: 10/24/17 18:36 Dose: 100 mg Famotidine (Pepcid) 40 mg PO HS [facility] Last Admin: 10/24/17 21:37 Dose: 40 mg Folic Acid (Folic Acid) 1 mg PO DAILY [facility] Last Admin: 10/24/17 11:24 Dose: 1 mg Gabapentin (Neurontin) 600 mg PO HS [facility] PRN Reason: Protocol Last Admin: 10/24/17 21:37 Dose: 600 mg Heparin Sodium (Porcine) (Heparin) 5,000 units SC Q8 [facility] PRN Reason: Protocol Last Admin: 10/25/17 06:12 Dose: Not Given Hydrocortisone (Anusol-Hc) 1 gm RI Q6H PRN PRN Reason: rectal pain Nafcillin Sodium 2 gm/ Sodium (Chloride) 100 mls @ 100 mls/hr IVPB Q4 [facility] PRN Reason: Protocol Stop: 11/19/17 12:01 Last Admin: 10/25/17 07:42 Dose: 100 mls/hr Ibuprofen (Motrin Tab) 400 mg PO Q6H PRN PRN Reason: Pain, Mild (1-3) Last Admin: 10/23/17 21:20 Dose: 400 mg Lorazepam (Ativan) 2 mg PO TID [facility] PRN Reason: Protocol Last Admin: 10/24/17 14:17 Dose: 2 mg Lorazepam (Ativan) 2 mg IVP Q6H PRN; Protocol PRN Reason: Anxiety Last Admin: 10/24/17 23:44 Dose: 2 mg Nicotine (Nicoderm Cq) 1 patch TD DAILY [facility] Last Admin: 10/24/17 11:20 Dose: 1 patch Ondansetron HCl (Zofran Inj) 4 mg IVP Q4H PRN PRN Reason: Nausea/Vomiting Oxycodone/Acetaminophen (Percocet 10/325 Mg Tab) 1 tab PO Q4H PRN PRN Reason: Pain, severe (8-10) Last Admin: 10/25/17 00:42 Dose: 1 tab Polyethylene Glycol (Miralax) 17 gm PO DAILY [facility] Last Admin: 10/24/17 11:20 Dose: Not Given Quetiapine Fumarate (Seroquel) 100 mg PO AMHS [facility] PRN Reason: Protocol Last Admin: 10/24/17 21:37 Dose: 100 mg Thiamine HCl (Vitamin B1 Tab) 100 mg PO DAILY [facility] Last Admin: 10/24/17 11:20 Dose: 100 mg Vitamin B Complex/Vit C/Folic Acid (Nephro-Meghan) 1 tab PO 0800 [facility] Last Admin: 10/24/17 08:39 Dose: 1 tab Ziprasidone (Geodon Inj) 10 mg IM Q6H PRN; Protocol PRN Reason: Agitation - Labs Labs: 10/23/17 07:20 10/23/17 07:20 PT 13.4 SECONDS (9.4-12.5) H 10/15/17 20:33 INR 1.17 (0.93-1.08) H 10/15/17 20:33 APTT 28.8 Seconds (25.1-36.5) 10/15/17 20:33 Attending/Attestation - Attestation I have personally seen and examined this patient.: Yes I have fully participated in the care of the patient.: Yes I have reviewed all pertinent clinical information, including history, physical exam and plan: Yes Notes (Text): 10/25/17 07:54 Attending note; Patient seen and examined with the resident. Patient is a 42 year old male with history of homelessness, IVDA, endocarditis apparently completed treatment at [facility] [place] [place], chronic alcohol abuse was admitted for evaluation of chest pain, back pain/ nonspecific symptoms. Blood cultures are positive for MSSA. Currently started on IV nafcillin. TTE is negative for vegetation. MRI LS spine did not reveal any abscess. MRI of the pelvis showed marrow edema of right sacral ala. Case discussed with ID in detail. Patient needs to complete 6 weeks of IV antibiotics therapy. Anxiety depression ; psychiatric evaluation appreciated. Patient was seen and evaluated with psychiatrist today. Continue gabapentin and Seroquel. Ativan added. medications will be adjusted by psychiatrist. Heroine abuse; Counselling provided regarding polysubstance abuse and alcohol cessation. Case discussed with social studies teacher for discharge planning. Waiting for authorization to go to rehabilitation after PICC line today. Upon discharge patient will follow up in [facility] clinic.
[2017-10-25] MEDS: Nafcillin 2 GM in Sodium Chloride 0.9% 100 ML IVPB SCH ×4 (00:42→12:30)
[2017-10-25] MEDS: Oxycodone/Acetaminophen 10/325 mg Tab PO PRN ×3 (00:42→12:35)
[2017-10-25] MEDS: Multivitamin Vitamin B Complex (Nephro-Vite) Tab PO SCH (07:50)
[2017-10-25] MEDS: POLYETHYLENE GLYCOL 3350 17 GM/Dose PACKET PO SCH (12:32)
--- NOTE | 2017-10-25 18:17 | CP.PCM.DIS ---
<Maureen He - Last Filed: 10/25/17 17:49> Provider - Provider Date of Admission: 10/17/17 10:42 Attending physician: Leonardo Kingslye MD Primary care physician: NO PRIMARY CARE PROVIDER Consults: ID: Tremaine Cardio: Murillo Psych: Rob Time Spent in preparation of Discharge (in minutes): 65 Diagnosis - Discharge Diagnosis (1) Septic arthritis of sacroiliac joint Status: Acute (2) Bacteremia Status: Acute Hospital Course - Lab Results Lab Results: Micro Results 10/19/17 10:30 Blood-Venous Blood Culture - Final NO GROWTH AFTER 5 DAYS 10/19/17 10:30 Blood-Venous Gram Stain - Final TEST NOT PERFORMED 10/19/17 10:00 Blood-Venous Blood Culture - Final NO GROWTH AFTER 5 DAYS 10/19/17 10:00 Blood-Venous Gram Stain - Final TEST NOT PERFORMED 10/18/17 07:30 Blood-Venous Blood Culture - Final NO GROWTH AFTER 5 DAYS 10/18/17 07:30 Blood-Venous Gram Stain - Final TEST NOT PERFORMED 10/18/17 07:15 Blood-Venous Blood Culture - Final NO GROWTH AFTER 5 DAYS 10/18/17 07:15 Blood-Venous Gram Stain - Final TEST NOT PERFORMED Most Recent Lab Values WBC 8.2 10^3/ul (4.5-11.0) 10/23/17 07:20 RBC 4.05 10^6/uL (3.5-6.1) 10/23/17 07:20 Hgb 11.1 g/dL (14.0-18.0) L 10/23/17 07:20 Hct 36.1 % (42.0-52.0) L 10/23/17 07:20 MCV 89.1 fl (80.0-105.0) 10/23/17 07:20 MCH 27.4 pg (25.0-35.0) 10/23/17 07:20 MCHC 30.7 g/dl (31.0-37.0) L 10/23/17 07:20 RDW 16.2 % (11.5-14.5) H 10/23/17 07:20 Plt Count 527 10^3/uL (120.0-450.0) H 10/23/17 07:20 MPV 8.6 fl (7.0-11.0) 10/23/17 07:20 Gran % 55.9 % (50.0-68.0) 10/23/17 07:20 Lymph % (Auto) 24.7 % (22.0-35.0) 10/23/17 07:20 [place] % (Auto) 13.5 % (1.0-6.0) H 10/23/17 07:20 Eos % (Auto) 5.4 % (1.5-5.0) H 10/23/17 07:20 Baso % (Auto) 0.5 % (0.0-3.0) 10/23/17 07:20 Gran # 4.60 (1.4-6.5) 10/23/17 07:20 Lymph # (Auto) 2.0 (1.2-3.4) 10/23/17 07:20 [place] # (Auto) 1.1 (0.1-0.6) H 10/23/17 07:20 Eos # (Auto) 0.4 (0.0-0.7) 10/23/17 07:20 Baso # (Auto) 0.04 K/mm3 (0.0-2.0) 10/23/17 07:20 ESR 94 mm/hr (0.0-15.0) H 10/19/17 10:00 PT 13.4 SECONDS (9.4-12.5) H 10/15/17 20:33 INR 1.17 (0.93-1.08) H 10/15/17 20:33 APTT 28.8 Seconds (25.1-36.5) 10/15/17 20:33 Sodium 143 mmol/L (132-148) 10/23/17 07:20 Potassium 5.2 mmol/L (3.6-5.0) H 10/23/17 07:20 Chloride 106 mmol/L (98-107) 10/23/17 07:20 Carbon Dioxide 29 mmol/L (21-33) 10/23/17 07:20 Anion Gap 13 (10-20) 10/23/17 07:20 BUN 19 mg/dL (7-21) 10/23/17 07:20 Creatinine 1.0 mg/dl (0.8-1.5) 10/23/17 07:20 Est GFR ( Amer) > 60 10/23/17 07:20 Est GFR (Non-Af Amer) > 60 10/23/17 07:20 Random Glucose 98 mg/dL (70-110) 10/23/17 07:20 Calcium 9.4 mg/dL (8.4-10.5) 10/23/17 07:20 Magnesium 1.9 mg/dL (1.7-2.2) 10/15/17 20:33 Total Bilirubin 0.4 mg/dL (0.2-1.3) 10/23/17 07:20 AST 58 U/L (17-59) 10/23/17 07:20 ALT 61 U/L (7-56) H 10/23/17 07:20 Alkaline Phosphatase 52 U/L (38-126) 10/23/17 07:20 Lactate Dehydrogenase 408 U/L (333-699) 10/15/17 20:33 Total Creatine Kinase 49 U/L (35-230) 10/15/17 20:33 Troponin I < 0.01 ng/mL 10/16/17 11:49 C-React Prot High Sens > 15.00 mg/L (1.00-3.00) H 10/19/17 18:00 Total Protein 7.1 g/dL (5.8-8.3) 10/23/17 07:20 Albumin 3.3 g/dL (3.0-4.8) 10/23/17 07:20 Globulin 3.8 gm/dL 10/23/17 07:20 Albumin/Globulin Ratio 0.9 (1.1-1.8) L 10/23/17 07:20 Triglycerides 56 mg/dL (35-160) 10/16/17 06:00 Cholesterol 140 mg/dL (130-200) 10/16/17 06:00 LDL Cholesterol Direct 84 mg/dL (0-129) 10/16/17 06:00 HDL Cholesterol 38 mg/dL (29-60) 10/16/17 06:00 Lipase 32 U/L (23-300) 10/15/17 20:33 Procalcitonin 0.15 NG/ML (0.19-0.49) L 10/17/17 10:00 Urine Color Dark yellow (YELLOW) 10/15/17 22:22 Urine Appearance Clear (CLEAR) 10/15/17 22:22 Urine pH 5.5 (4.7-8.0) 10/15/17 22:22 Ur Specific Balsam >= 1.030 (1.005-1.035) 10/15/17 22:22 Urine Protein 30 mg/dL (<30 mg/dL) H 10/15/17 22:22 Urine Glucose (UA) Negative mg/dL (NEGATIVE) 10/15/17 22:22 Urine Ketones Negative mg/dL (NEGATIVE) 10/15/17 22:22 Urine Blood Negative (NEGATIVE) 10/15/17 22:22 Urine Nitrate Negative (NEGATIVE) 10/15/17 22:22 Urine Bilirubin Negative (NEGATIVE) 10/15/17 22:22 Urine Urobilinogen 0.2 E.U./dL (<1 E.U./dL) 10/15/17 22:22 Ur Leukocyte Esterase Negative Carlos/uL (NEGATIVE) 10/15/17 22:22 Urine RBC Negative /hpf (0-2) 10/15/17 22:22 Urine WBC 0 - 2 /hpf (0-6) 10/15/17 22:22 Ur Epithelial Cells 0 - 2 /hpf (0-5) 10/15/17 22:22 Amorphous Sediment Few 10/15/17 22:22 Urine Bacteria Many (NEG) 10/15/17 22:22 Urine Other Fiber 10/15/17 22:22 Vancomycin Trough 21.7 ug/mL (5.0-10.0) H* 10/19/17 14:30 Urine Opiates Screen Positive (NEGATIVE) H 10/15/17 22:22 Urine Methadone Screen Negative (NEGATIVE) 10/15/17 22:22 Ur Barbiturates Screen Negative (NEGATIVE) 10/15/17 22:22 Ur Phencyclidine Scrn Negative (NEGATIVE) 10/15/17 22:22 Ur Amphetamines Screen Negative (NEGATIVE) 10/15/17 22:22 U Benzodiazepines Scrn Negative (NEGATIVE) 10/15/17 22:22 U Oth Cocaine Metabols Positive (NEGATIVE) H 10/15/17 22:22 U Cannabinoids Screen Negative (NEGATIVE) 10/15/17 22:22 Alcohol, Quantitative < 10 mg/dL (0-10) 10/15/17 20:05 HIV 1&2 Ag/Ab, 4th Gen Nonreactive (Nonreactive) 10/18/17 08:00 Influenza Typ A,B (EIA) Negative for flu a/b (NEGATIVE) 10/17/17 11:53 - Hospital Course Hospital Course: Patient is a 42 y/o Male with PMHx of homelessness, endocarditis, chronic alcohol abuse, IVDA - cocaine and heroine who initially presented with substernal chest pain and right sided back radiating to the right leg for the past 2 days. Patient tested positive for cocaine and heroine in the ED. Patient was bactermic initially, and TTE did not show any vegetations. ACS was ruled out , and the chest pain was more likely secondary to costochondritis. Repeat cultures were drawn after 4 days of IV antibiotics and were repeatedly negative. CT chest revealed no PE, had [address] of L spine with DJD of L3-L4. MRI L spine shows mild degenerative changes; no discitis or epidural abscess. MRI of sacrum showed marrow edema in R sacrum; consistent with septic sacroilitis. He was continued on IV antibiotics based on the sensitivities of the blood culture. Patient was also treated for polysubstance abuse and withdrawal. His withdrawal symptoms gradually improved, and his requirement for pain medications and benzodiazepines gradually reduced. After several days, patient expressed suicidal ideation and was intermittently agitated. He was seen by psychiatry who started him on a psychotropic regimen to control his psychotic and depressive symptoms. He was eventually cleared by psych, determined not to be a danger to himself or others. Today, patient feels significantly better than on initial presentation. Still has some back pain. He is being discharged to a rehab facility for continued IV antibiotics. He was given instructions for follow up. He was repeatedly informed on the significance of his infection, and educated regarding abstinence from alcohol and all illicit substances. All questions were answered to his satisfaction, and he was discharged to rehab. Discharge Exam - Head Exam Head Exam: ATRAUMATIC, NORMOCEPHALIC - Eye Exam Eye Exam: EOMI, Normal appearance, PERRL - ENT Exam ENT Exam: Mucous Membranes Moist - Neck Exam Neck exam: Normal Inspection - Respiratory Exam Respiratory Exam: Clear to PA & Lateral, NORMAL BREATHING PATTERN - Cardiovascular Exam Cardiovascular Exam: RRR, +S1, +S2. absent: Diastolic murmur, Systolic Murmur - GI/Abdominal Exam GI & Abdominal Exam: Normal Bowel Sounds, Soft. absent: Tenderness - Extremities Exam Extremities exam: normal inspection - Back Exam Additional comments: R SI joint tenderness - Neurological Exam Neurological exam: Alert, Oriented x3 - Psychiatric Exam Psychiatric exam: Normal Affect, Normal Mood - Skin Skin Exam: Dry, Intact Discharge Plan - Discharge Medications Prescriptions: Docusate [Colace] 100 mg PO BID #60 cap Folic Acid 1 mg PO DAILY #30 tab Gabapentin [Neurontin] 600 mg PO HS #30 tab LORazepam [Ativan] 2 mg PO TID #21 tab Polyethylene Glycol 3350 [Miralax] 17 gm PO DAILY #30 packet QUEtiapine [Seroquel] 25 mg PO HS #30 tab Thiamine [Vitamin B1 Tab] 100 mg PO DAILY #30 tab Vitamin B Complex/Vit C/Folic [Nephro-Meghan] 1 tab PO 0800 #30 tab - Follow Up Plan Condition: FAIR Disposition: TRANSF TO SNF Instructions: Influenza Virus Vaccine (By injection), Narcotic Abuse (DC), Narcotic Pain Management (DC), Sepsis (GEN), Opioid Withdrawal (DC), Complications of Infection (GEN) Additional Instructions: Patient being discharged to rehab facility for continued IV antibiotics and rehabilitation Referrals: PCP,ASAEL [Primary Care Provider] - <Leonardo Kingsley - Last Filed: 10/26/17 13:32> Provider - Provider Date of Admission: 10/17/17 10:42 Attending physician: Leonardo Kingsley MD Primary care physician: ASAEL PRIMARY CARE PROVIDER Hospital Course - Lab Results Lab Results: Micro Results 10/19/17 10:30 Blood-Venous Blood Culture - Final NO GROWTH AFTER 5 DAYS 10/19/17 10:30 Blood-Venous Gram Stain - Final TEST NOT PERFORMED 10/19/17 10:00 Blood-Venous Blood Culture - Final NO GROWTH AFTER 5 DAYS 10/19/17 10:00 Blood-Venous Gram Stain - Final TEST NOT PERFORMED 10/18/17 07:30 Blood-Venous Blood Culture - Final NO GROWTH AFTER 5 DAYS 10/18/17 07:30 Blood-Venous Gram Stain - Final TEST NOT PERFORMED 10/18/17 07:15 Blood-Venous Blood Culture - Final NO GROWTH AFTER 5 DAYS 10/18/17 07:15 Blood-Venous Gram Stain - Final TEST NOT PERFORMED Most Recent Lab Values WBC 8.2 10^3/ul (4.5-11.0) 10/23/17 07:20 RBC 4.05 10^6/uL (3.5-6.1) 10/23/17 07:20 Hgb 11.1 g/dL (14.0-18.0) L 10/23/17 07:20 Hct 36.1 % (42.0-52.0) L 10/23/17 07:20 MCV 89.1 fl (80.0-105.0) 10/23/17 07:20 MCH 27.4 pg (25.0-35.0) 10/23/17 07:20 MCHC 30.7 g/dl (31.0-37.0) L 10/23/17 07:20 RDW 16.2 % (11.5-14.5) H 10/23/17 07:20 Plt Count 527 10^3/uL (120.0-450.0) H 10/23/17 07:20 MPV 8.6 fl (7.0-11.0) 10/23/17 07:20 Gran % 55.9 % (50.0-68.0) 10/23/17 07:20 Lymph % (Auto) 24.7 % (22.0-35.0) 10/23/17 07:20 [place] % (Auto) 13.5 % (1.0-6.0) H 10/23/17 07:20 Eos % (Auto) 5.4 % (1.5-5.0) H 10/23/17 07:20 Baso % (Auto) 0.5 % (0.0-3.0) 10/23/17 07:20 Gran # 4.60 (1.4-6.5) 10/23/17 07:20 Lymph # (Auto) 2.0 (1.2-3.4) 10/23/17 07:20 [place] # (Auto) 1.1 (0.1-0.6) H 10/23/17 07:20 Eos # (Auto) 0.4 (0.0-0.7) 10/23/17 07:20 Baso # (Auto) 0.04 K/mm3 (0.0-2.0) 10/23/17 07:20 ESR 94 mm/hr (0.0-15.0) H 10/19/17 10:00 PT 13.4 SECONDS (9.4-12.5) H 10/15/17 20:33 INR 1.17 (0.93-1.08) H 10/15/17 20:33 APTT 28.8 Seconds (25.1-36.5) 10/15/17 20:33 Sodium 143 mmol/L (132-148) 10/23/17 07:20 Potassium 5.2 mmol/L (3.6-5.0) H 10/23/17 07:20 Chloride 106 mmol/L (98-107) 10/23/17 07:20 Carbon Dioxide 29 mmol/L (21-33) 10/23/17 07:20 Anion Gap 13 (10-20) 10/23/17 07:20 BUN 19 mg/dL (7-21) 10/23/17 07:20 Creatinine 1.0 mg/dl (0.8-1.5) 10/23/17 07:20 Est GFR ( Amer) > 60 10/23/17 07:20 Est GFR (Non-Af Amer) > 60 10/23/17 07:20 Random Glucose 98 mg/dL (70-110) 10/23/17 07:20 Calcium 9.4 mg/dL (8.4-10.5) 10/23/17 07:20 Magnesium 1.9 mg/dL (1.7-2.2) 10/15/17 20:33 Total Bilirubin 0.4 mg/dL (0.2-1.3) 10/23/17 07:20 AST 58 U/L (17-59) 10/23/17 07:20 ALT 61 U/L (7-56) H 10/23/17 07:20 Alkaline Phosphatase 52 U/L (38-126) 10/23/17 07:20 Lactate Dehydrogenase 408 U/L (333-699) 10/15/17 20:33 Total Creatine Kinase 49 U/L (35-230) 10/15/17 20:33 Troponin I < 0.01 ng/mL 10/16/17 11:49 C-React Prot High Sens > 15.00 mg/L (1.00-3.00) H 10/19/17 18:00 Total Protein 7.1 g/dL (5.8-8.3) 10/23/17 07:20 Albumin 3.3 g/dL (3.0-4.8) 10/23/17 07:20 Globulin 3.8 gm/dL 10/23/17 07:20 Albumin/Globulin Ratio 0.9 (1.1-1.8) L 10/23/17 07:20 Triglycerides 56 mg/dL (35-160) 10/16/17 06:00 Cholesterol 140 mg/dL (130-200) 10/16/17 06:00 LDL Cholesterol Direct 84 mg/dL (0-129) 10/16/17 06:00 HDL Cholesterol 38 mg/dL (29-60) 10/16/17 06:00 Lipase 32 U/L (23-300) 10/15/17 20:33 Procalcitonin 0.15 NG/ML (0.19-0.49) L 10/17/17 10:00 Urine Color Dark yellow (YELLOW) 10/15/17 22:22 Urine Appearance Clear (CLEAR) 10/15/17 22:22 Urine pH 5.5 (4.7-8.0) 10/15/17 22:22 Ur Specific Balsam >= 1.030 (1.005-1.035) 10/15/17 22:22 Urine Protein 30 mg/dL (<30 mg/dL) H 10/15/17 22:22 Urine Glucose (UA) Negative mg/dL (NEGATIVE) 10/15/17 22:22 Urine Ketones Negative mg/dL (NEGATIVE) 10/15/17 22:22 Urine Blood Negative (NEGATIVE) 10/15/17 22:22 Urine Nitrate Negative (NEGATIVE) 10/15/17 22:22 Urine Bilirubin Negative (NEGATIVE) 10/15/17 22:22 Urine Urobilinogen 0.2 E.U./dL (<1 E.U./dL) 10/15/17 22:22 Ur Leukocyte Esterase Negative Carlos/uL (NEGATIVE) 10/15/17 22:22 Urine RBC Negative /hpf (0-2) 10/15/17 22:22 Urine WBC 0 - 2 /hpf (0-6) 10/15/17 22:22 Ur Epithelial Cells 0 - 2 /hpf (0-5) 10/15/17 22:22 Amorphous Sediment Few 10/15/17 22:22 Urine Bacteria Many (NEG) 10/15/17 22:22 Urine Other Fiber 10/15/17 22:22 Vancomycin Trough 21.7 ug/mL (5.0-10.0) H* 10/19/17 14:30 Urine Opiates Screen Positive (NEGATIVE) H 10/15/17 22:22 Urine Methadone Screen Negative (NEGATIVE) 10/15/17 22:22 Ur Barbiturates Screen Negative (NEGATIVE) 10/15/17 22:22 Ur Phencyclidine Scrn Negative (NEGATIVE) 10/15/17 22:22 Ur Amphetamines Screen Negative (NEGATIVE) 10/15/17 22:22 U Benzodiazepines Scrn Negative (NEGATIVE) 10/15/17 22:22 U Oth Cocaine Metabols Positive (NEGATIVE) H 10/15/17 22:22 U Cannabinoids Screen Negative (NEGATIVE) 10/15/17 22:22 Alcohol, Quantitative < 10 mg/dL (0-10) 10/15/17 20:05 HIV 1&2 Ag/Ab, 4th Gen Nonreactive (Nonreactive) 10/18/17 08:00 Influenza Typ A,B (EIA) Negative for flu a/b (NEGATIVE) 10/17/17 11:53 Attending/Attestation - Attestation I have personally seen and examined this patient.: Yes I have fully participated in the care of the patient.: Yes I have reviewed all pertinent clinical information, including history, physical exam and plan: Yes Notes (Text): 10/26/17 13:30 Attending note; Patient seen and examined with the resident. Patient is a 42 year old male with history of homelessness, IVDA, endocarditis apparently completed treatment at [facility], chronic alcohol abuse was admitted for evaluation of chest pain, back pain/ nonspecific symptoms. Blood cultures are positive for MSSA. Currently started on IV nafcillin. TTE is negative for vegetation. MRI LS spine did not reveal any abscess. MRI of the pelvis showed marrow edema of right sacral ala. Case discussed with ID in detail. Patient needs to complete 6 weeks of IV antibiotics therapy. Anxiety depression ; psychiatric evaluation appreciated. Patient was seen and evaluated with psychiatrist today. Continue gabapentin and Seroquel. Ativan added. medications will be adjusted by psychiatrist. Heroine abuse; Counselling provided regarding polysubstance abuse and alcohol cessation. 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 PICC line placed. Patient will be transferred to rehabilitation today for long-term anti-biotics. Upon discharge patient [place] [facility] [place] diagnosis; MSSA bacteremia Active IV drug abuse Previous history of endocarditis Osteomyelitis Anxiety depression Heroine abuse
== END 2017-10-25 14:32 | DRG 901 ==
LOC: ED 19:31 → ERH 10-16 01:16 → 2RSO 10-16 02:59 → 2A 10-16 12:37 → OBSVTOIN 10-17 10:42 → 5RNO 10-18 20:35
PROVIDERS: ADMIT Hospitalist; ATTEND Internal Medicine
PROC: 02HV33Z Insertion of Infusion Device into Superior Vena Cava, Percutaneous Approach (ICD-10-PCS; principal; 2017-10-24)
DX: A41.01 Sepsis due to Methicillin susceptible Staphylococcus aureus (principal); F11.23 Opioid dependence with withdrawal; F14.10 Cocaine abuse, uncomplicated; F11.24 Opioid dependence with opioid-induced mood disorder; M86.9 Osteomyelitis, unspecified; M46.58 Other infective spondylopathies, sacral and sacrococcygeal region; M46.1 Sacroiliitis, not elsewhere classified; F41.8 Other specified anxiety disorders; F10.10 Alcohol abuse, uncomplicated; R91.1 Solitary pulmonary nodule; D64.9 Anemia, unspecified; M47.816 Spondylosis without myelopathy or radiculopathy, lumbar region; K59.00 Constipation, unspecified; Z86.79 Personal history of other diseases of the circulatory system; Z59.0 Homelessness